=== PATIENT | male | born 1945 | race Two or more races ===

== ENCOUNTER → 2016-10-22 | Outpatient (CLI) | payer MEDICARE, BC, OTHER ==
[~2016-10-22] MED LIST: ASPI1TAB PO; ATOR40TA75 PO; CARV6.25 PO; CLOP75TA2 PO; LISI10TA4 PO; PEG1POW PO; VITA500T3 PO
[2016-10-23 14:14] LABS: PSA TOTAL 14.1 ng/mL (0.0-4.0)
== END ==
LOC: M LAB 11:08
PROVIDERS: ATTEND Urology
DX: C61 Malignant neoplasm of prostate (principal)

== ENCOUNTER → 2016-11-07 | Outpatient (REF) | payer MEDICARE, BC, OTHER ==
[2016-11-07 19:56] LABS: MEAN CORPUSCULAR HEMOGLOBIN 30.3 pg (27.0-33.0); MEAN CORPUSCULAR HGB CONC 32.4 g/dl (32.0-36.5); MEAN CORPUSCULAR VOLUME 93.7 fl (80.0-96.0); RED CELL DISTRIBUTION WIDTH 13.5 % (11.5-14.5); WHITE BLOOD COUNT 7.8 K/mm3 (4.0-10.0)
[2016-11-07 20:04] LABS: ALBUMIN 3.9 GM/DL (3.2-5.2); ALBUMIN/GLOBULIN RATIO 1.15 (1.00-1.93); ALKALINE PHOSPHATASE 74 U/L (45-117); ALT/SGPT 17 U/L (12-78); ANION GAP 6 MEQ/L (8-16); AST/SGOT 12 U/L (15-37); BILIRUBIN,TOTAL 0.4 MG/DL (0.2-1.0); BLOOD UREA NITROGEN 17 MG/DL (7-18); CARBON DIOXIDE LEVEL 32 MEQ/L (21-32); CHLORIDE LEVEL 97 MEQ/L (98-107); CHOLESTEROL LEVEL 218 MG/DL (<200); CREATININE FOR GFR 0.76 MG/DL (0.70-1.30); FREE T4 1.06 NG/DL (0.76-1.46); GLOMERULAR FILTRATION RATE > 60.0 (>42); GLUCOSE, FASTING 92 MG/DL (83-110); POTASSIUM SERUM 3.7 MEQ/L (3.5-5.1); SODIUM LEVEL 135 MEQ/L (136-145); TOTAL PROTEIN 7.3 GM/DL (6.4-8.2); TRIGLYCERIDES LEVEL 121 MG/DL (<150)
[2016-11-07 20:12] LABS: INR 0.98
== END ==
LOC: M SFHCADAM 14:54
PROVIDERS: ATTEND Family Medicine
DX: I48.2 Chronic atrial fibrillation (principal); I11.9 Hypertensive heart disease without heart failure; R09.89 Other specified symptoms and signs involving the circulatory and respiratory systems; Z79.899 Other long term (current) drug therapy; F17.210 Nicotine dependence, cigarettes, uncomplicated
CPT/HCPCS: 80053; 80061; 83036; 84439; 84443; 85027; 85610; 90670; 99406; G0009; G0404; G0463

== ENCOUNTER → 2016-11-11 | Outpatient (CLI) | payer MEDICARE, BC, OTHER ==
--- NOTE | 2016-11-11 15:33 | REP ---
PA and lateral chest: Comparison is 03/07/2010. The lung magdaleno are clear. Cardiac size is normal. The di and mediastinum are unremarkable and unchanged. There is demineralization and thoracic scoliosis convex left and mild degenerative disc disease throughout the thoracic spine, unchanged. Impression: Essentially negative PA and lateral chest for patient age. There is no interval change. Signed by Juan Hines MD 11/11/2016 03:25 P
--- NOTE | 2016-11-11 20:36 | ECHO ---
DATE OF PROCEDURE: 11/11/2016 AGE: 71 GENDER: Male. HEIGHT: 72 inches. WEIGHT: 206 pounds. BODY SURFACE AREA: 2.16 meters squared. LOCATION: Outpatient. REFERRING PHYSICIAN: Dr. Shravan Martin. INDICATION: Atrial fibrillation. MEASUREMENTS: 2-D measurements: RV - 3.9 cm LV - 3.9 cm Septum 1.3 cm Posterior wall 1.2 cm Aortic root 4.1 cm LA - 4.3 cm LVEF 60% Doppler measurements: AV - 1.3 ms LVOT - 0.7 ms LVOT diameter 2.2 cm MV - E: 77, A:65, EA ratio: 1.2. Early mitral deceleration time 215 ms E prime 7.8, A prime 10, E/E prime ratio 10 PV - 0.8 ms Pulmonary artery acceleration time 99 ms RVSP 46 mmHg IVC - 1.8 cm COMMENTS: Normal sinus rhythm without intraventricular conduction disturbance. Technically challenging study in light of the patient's body habitus but diagnostically useful information was still obtained. Mildly dilated left atrium but normal left ventricular size. Right heart chambers were upper limits of normal in size. LV wall thickness was borderline increased symmetrically. On real-time imaging from the parasternal and apical projections, wall motion was symmetrical and normal. Mild to moderate mitral annular and some mitral leaflet thickening with adequate leaflet excursion and no posterior systolic buckling. Three equal size aortic cusps with mildly thickened cusp edges but adequate cusp separation. Slightly dilated aortic root. No apparent intracardiac mass or pericardial effusion. Color flow Doppler study taken from the parasternal and apical projection showed very mild aortic, trace mitral and at least mild to moderate tricuspid insufficiency. Guided continuous wave Doppler of his aortic valve showed a normal peak systolic velocity against LV outflow tract obstruction. Pulsed and continuous wave Doppler of his LV inflow tract taken from the apical four-chamber projection showed normal diastolic filling velocities against mitral stenosis. There appeared to be a normal filling pattern, yet a prolonged early mitral deceleration time and tissue Doppler evidence of a degree of impaired LV diastolic function. Current estimated mean left atrial pressure was within normal limits. Pulsed and continuous wave Doppler of his pulmonary trunk showed a normal peak systolic velocity against RV outflow tract obstruction. His pulmonary artery acceleration time was abbreviated consistent with an elevated pulmonary vascular resistance. Guided continuous wave Doppler of his tricuspid valve allowed our estimation of his right ventricle systolic pressure (moderately increased). His inferior vena cava was normal in size with normal respiratory collapse against right heart failure. CONCLUSIONS: Technically difficult study in light of the patient's body habitus. Borderline to mild concentric left ventricle hypertrophy with preserved systolic function. Mildly dilated left atrium with Doppler evidence of an impairment of LV diastolic function but currently normal estimated mean left atrial pressure. Normal right heart chamber sizes and wall motion yet Doppler evidence of moderate pulmonary hypertension. Normal IVC size and collapse against an elevated central venous pressure. Moderate degenerative changes of the mitral valvular apparatus without functional valvular abnormality. Mild aortic valvular sclerosis without stenosis and only trace to very mild insufficiency.
== END ==
LOC: M CARPUL 14:28
PROVIDERS: ATTEND Family Medicine
DX: I48.2 Chronic atrial fibrillation (principal)

== ENCOUNTER → 2016-11-12 | Outpatient (CLI) | payer MEDICARE, BC, OTHER ==
--- NOTE | 2016-11-12 09:07 | REP ---
CAROTID DUPLEX ULTRASOUND: 11/12/2016. Filling of the systolic window for both internal carotids, worst in the mid and distal portions on the right Clinical history: Left carotid bruit. Findings: No prior study. Standard duplex techniques were utilized bilaterally. There is atherosclerotic plaque with soft and mixed plaque scattered throughout the right common carotid artery with circumferential plaque in the bulb into the right internal carotid greater than external carotid. Soft and hard plaques seen throughout. The left common carotid also shows some intimal thickening and distal calcific and soft plaque circumferential plaque and into the internal carotid and more into the external carotid, but significant on both sides. Peak velocities: RIGHT LEFT CCA systolic 0.83 M/S 0.94 M/SPeak ICA systolic 2.49 M/S 1.51 M/SPeak ICA diastolic 0.70 M/S 0.31 M/SECA systolic 0.98 M/S 0.94 M/SIC/CC ratio 2.99 1.60 The Doppler waveform analysis shows spectral broadening most significantly in the mid and distal right ICA on the left is most severe in the proximal ICA. The bilateral vertebral arteries are noted with cranial direction of flow. Impression: 1. Right internal carotid severe stenosis greater than 70% mid to distal right ICA with heavy circumferential calcific and soft plaque. 2. Left internal carotid with somewhat less but still significant stenosis greater than 50%, greatest in the proximal left internal carotid. 3. Cranial direction of flow in the vertebral arteries. Signed by Xander Gunn MD 11/12/2016 06:54 P
== END ==
LOC: M RAD 07:50
PROVIDERS: ATTEND Family Medicine
DX: R09.89 Other specified symptoms and signs involving the circulatory and respiratory systems (principal)

== ENCOUNTER → 2016-12-17 | Outpatient (CLI) | payer MEDICARE, BC, OTHER ==
[2016-12-17 12:01] LABS: ANION GAP 3 MEQ/L (8-16); BLOOD UREA NITROGEN 14 MG/DL (7-18); CALCIUM LEVEL 8.9 MG/DL (8.8-10.2); CARBON DIOXIDE LEVEL 36 MEQ/L (21-32); CHLORIDE LEVEL 101 MEQ/L (98-107); CREATININE FOR GFR 0.83 MG/DL (0.70-1.30); GLOMERULAR FILTRATION RATE > 60.0 (>42); GLUCOSE, FASTING 104 MG/DL (83-110); POTASSIUM SERUM 4.2 MEQ/L (3.5-5.1); SODIUM LEVEL 140 MEQ/L (136-145)
== END ==
LOC: M LAB 10:34
PROVIDERS: ATTEND Surgery Vascular Surgery
DX: I65.23 Occlusion and stenosis of bilateral carotid arteries (principal)

== ENCOUNTER → 2016-12-23 | Outpatient (CLI) | payer MEDICARE, BC, OTHER ==
[~2016-12-23] MED LIST changes: +ISOVUE-370 76% 100ML VIAL (Q9967) As Ordered ONE
--- NOTE | 2016-12-23 11:46 | REP ---
CT ANGIOGRAM OF THE BRAIN: 12/23/2016 CLINICAL HISTORY: Carotid stenosis. There are no priors pertinent studies. The patient received a bolus of 100 mL Isovue 370 after appropriate premedication as per ordering physician. It has history of IV contrast reaction. The axial soft-tissue images with MIP reformatting in coronal, sagittal and axial planes as well as standard coronal and sagittal reformats and 3D surface rendering rotated about the longitudinal axis of the brain, reviewed. Lateral ventricles are midline, not enlarged. There is mild atrophy but age appropriate. The third and fourth ventricles intact. No gross evidence of mass or mass effect. 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 Cerebellum and brainstem without acute finding. No vascular territory infarct is noted. The mastoids and sinuses are clear. Calvarium and skull base as well as visualized facial bones are unremarkable. Sinuses included are unremarkable as well. The distal left vertebral artery shows a long segment stenosis, while the right vertebral provides the dominant component of the basilar artery. No basilar stenosis or basilar tip aneurysm. The posterior cerebral arteries show symmetric supply to the posterior, proximally while distally on the left, there is slightly smaller caliber vessel without vessel cutoff or aneurysm. No basilar tip stenosis or aneurysm. There is a partial origin of the right [employer]IREMENT PLAN COUNSELOR with a posterior communicating artery from the posterior margin of the internal carotid to the [employer]IREMENT PLAN COUNSELOR. The right internal carotid shows slightly greater diameter than the left. Both show calcific plaque in the cavernous portions more on the right than left and no definite aneurysm. Slight ectasia of the M1 segment on the right compared to left without stenosis or aneurysm on either side. The A1 segment is without any significant stenosis. The A2 segment and M2 segments are grossly intact. The left internal carotid shows similar calcific plaque in the cavernous portion, and the supraclinoid left internal carotid was unremarkable. The A1 and M1 segments as well as M2 and A2 segments are grossly intact. IMPRESSION: 1. There is atherosclerotic plaque in both cavernous sinus portions of the internal carotids. The bilateral A1 and M1 segments are grossly intact as are the A2 and M2 segments without definite stenosis or aneurysm. The internal carotids in the cavernous sinus shows the atherosclerotic plaque and slightly greater caliber right than left, but no aneurysm. 2. Symmetric supply of vertebral arteries to form the basilar artery and slightly better flow and caliber posteriorly on the right compared to left posterior cerebral but no vessel cutoff or aneurysm. Nothing acute. Signed by Xander Gunn MD 12/23/2016 03:48 P
--- NOTE | 2016-12-23 11:50 | REP ---
CT ANGIOGRAM NECK: 12/23/2016 COMPARISON: Carotid ultrasound 11/12/2016. CLINICAL HISTORY: Carotid stenosis bilaterally on ultrasound. TECHNIQUE: The patient received bolus of 100 mL Isovue 370 and scanning through the neck with coronal and sagittal standard and MIP reformats with thick slab and curved reformats through both carotids. 3D surface rendering reconstructions rotated about the longitudinal axis of the neck. FINDINGS: The axial images show heavy atherosclerotic plaque at the bulbs and proximal ICAs bilaterally. There is tight stenosis bilaterally in the ICA in the 80-90% range of the right and left side. Heavy calcific plaque is a component at this. There is also heavy calcific plaque at the bulb and distal CCA with less stenosis. The area of greatest stenosis in the left ICA is about 1.5 cm above the bifurcation and on the right it is about 1 cm above the bifurcation. The bilateral vertebral arteries show symmetric appearance through the neck with greater supply of the basilar artery by the right vertebral smooth long segment narrowing. The remainder of the internal carotids intact. The right and left common carotid artery showed no significant stenosis with scattered plaque. Cervical spondylosis with degenerative disc disease but no compression fracture noted. The dens intact. Exaggeration of the cervical lordosis is noted, but no subluxation or dislocation. The neck soft tissues are symmetric. No adenopathy. The bilateral parotid and submandibular glands are symmetric and grossly intact. That portion of the base the brain seen was intact with a prominent xenia cisterna magna noted. IMPRESSION: 1. Evidence of bilateral critical stenosis in the 80-90% range for both internal carotids about a centimeter above the bifurcation on the right and 1.5 cm on the left for maximum stenosis. Soft and fairly extensive calcific plaque noted in both. If anything, the left internal carotid stenosis is understated by ultrasound. 2. Vertebral arteries show slightly greater supply component on the right than left with basilar artery. No other significant finding. Signed by Xander Gunn MD 12/23/2016 03:49 P
== END ==
LOC: M RAD 12-20 12:03
PROVIDERS: ATTEND Surgery Vascular Surgery
DX: I65.23 Occlusion and stenosis of bilateral carotid arteries (principal)
CPT/HCPCS: 70496; 70498; Q9967

== ENCOUNTER → 2017-01-02 | Outpatient (REF) | payer MEDICARE, BC, OTHER ==
[~2017-01-02] MED LIST changes: -ISOVUE-370 76% 100ML VIAL (Q9967) As Ordered ONE
== END ==
LOC: M SFHCLERA 09:16
PROVIDERS: ATTEND Dermatology
DX: D49.2 Neoplasm of unspecified behavior of bone, soft tissue, and skin (principal)
CPT/HCPCS: 11100; 11101; 88305; G0463

== ENCOUNTER → 2017-02-10 | Outpatient (REF) | payer MEDICARE, OTHER ==
[2017-02-12 14:16] LABS: PSA % FREE 14.1 % (.); PSA FREE 1.23 ng/mL; PSA TOTAL 8.7 ng/mL (0.0-4.0)
== END ==
LOC: M LABDRWAD 09:03
PROVIDERS: ATTEND Urology
DX: C61 Malignant neoplasm of prostate (principal)

== ENCOUNTER 2017-02-13 07:01 | Inpatient (IN) | payer MEDICARE, BC, OTHER ==
[~2017-02-13] VITALS: Ht 182.9 cm; Wt 95.0 kg
[2017-02-13] VITALS (10 sets, daily range): BP systolic 120–177; BP diastolic 57–91; O2SAT 90–91
[~2017-02-13 07:01] MED LIST changes: -PEG1POW PO
[2017-02-13] MEDS ORDERED: LIDOCAINE 1% SDV 5 ML VIAL SC ONE (07:15)
[2017-02-13] MEDS ORDERED: LIDOCAINE 1% MDV 20ML VIAL SQ PRN (08:00)
[2017-02-13] MEDS ORDERED: ROCURONIUM BROMIDE 50 MG/5 ML VIAL/SYRINGE As Ordered ONE (08:02)
[2017-02-13] MEDS ORDERED: MIDAZOLAM INJ 2 MG/2 ML VIAL (J2250) As Ordered ONE (08:02)
[2017-02-13] MEDS ORDERED: fentaNYL 100 MCG/2 ML INJECTION (J3010) As Ordered ONE (08:02)
[2017-02-13] MEDS ORDERED: LIDOCAINE 2% INJ 100 MG/5 ML SDV (FOR ANES.) As Ordered ONE (08:02)
[2017-02-13] MEDS ORDERED: PROPOFOL 200 MG/20 ML VIAL As Ordered ONE (08:02)
[2017-02-13] MEDS ORDERED: PHENYLEPHRINE INJ 10MG/ML VIAL (J2370) As Ordered ONE (08:07)
[2017-02-13] MEDS: LACTATED RINGERS IV SCH ×4 (08:15→10:15)
[2017-02-13] MEDS ORDERED: MIDAZOLAM INJ 2 MG/2 ML VIAL (J2250) IV PRN (08:30)
[2017-02-13] MEDS ORDERED: ALBUTEROL SULFATE 2.5 MG/0.5 ML INH NEB SOLN INH ONE (08:30)
[2017-02-13] MEDS ORDERED: CARVedilol 6.25 MG TAB PO ONE (08:30)
[2017-02-13] MEDS ORDERED: ATORVASTATIN 20 MG TAB PO SCH (09:00)
[2017-02-13] MEDS: CARVedilol 6.25 MG TAB PO SCH ×2 (09:00→21:09)
[2017-02-13] MEDS ORDERED: BUPIVACAINE HCL 0.5% 30 ML VIAL As Ordered ONE (09:04)
[2017-02-13] MEDS ORDERED: HEPARIN SOD (PORCINE) 5000 UNITS/ML VIAL As Ordered ONE (09:05)
[2017-02-13] MEDS ORDERED: LIDOCAINE 1% SDV INJ 30 ML VIAL As Ordered ONE (09:05)
[2017-02-13] MEDS ORDERED: THROMBIN SOLN 5,000 UNITS VIAL As Ordered ONE (09:07)
[2017-02-13] MEDS ORDERED: THROMBIN SOLN 20,000 UNITS KIT As Ordered ONE (09:08)
[2017-02-13] MEDS ORDERED: REMIFENTANIL 1MG 3ML VIAL As Ordered ONE ×2 (09:28→09:53)
--- NOTE | 2017-02-13 09:29 | HPEPDOC ---
General Date of Admission Feb 13, 2017 at 07:01 Primary Care Physician: Shravan Martin MD Attending Physician: Wang Bautista MD Chief Complaint Patient is a 71-year-old male with bilateral carotid artery stenosis. Source: Patient Exam Limitations: No limitations Severity: Severe History of Present Illness Patient is a 71-year-old male with bilateral carotid artery stenosis. The patient underwent ultrasound evaluation of his carotid arteries which showed stenosis which was confirmed with a CT angiogram of the neck and head showing greater than 80% stenosis in the bilateral internal carotid arteries. Patient was evaluated and felt to be a good candidate for carotid endarterectomy. Patient will undergo a right carotid endarterectomy followed by a left carotid endarterectomy in 2-3 weeks. Home Medications Scheduled Aspirin (Aspirin 81) 81 Mg Tab, 81 MG PO DAILY, (Reported) Atorvastatin Calcium (Atorvastatin Calcium) 40 Mg Tab, 40 MG PO DAILY, (Reported ) Carvedilol (Carvedilol) 6.25 Mg Tab, PO BID, (Reported) Clopidogrel Bisulfate (Clopidogrel) 75 Mg Tab, 75 MG PO DAILY, (Reported) Cyanocobalamin (Vitamin B-12) 500 Mcg Tab, 500 MCG PO DAILY, (Reported) Lisinopril (Lisinopril) 10 Mg Tab, 10 MG PO DAILY, (Reported) Allergies Coded Allergies: Contrast Media (Verified Allergy, Intermediate, HIVES, 01/29/17) CONTRAST DYE Past Medical History Medical History Hypertension Hypercholesterolemia Prostate cancer Anxiety Surgical History Right knee surgery Ulcer surgery Abdominal hernia repair 2 with mesh Excision of melanoma from the face Family History Significant Family History: Heart disease, Hypertension Father has a history of hypertension and coronary artery disease Mother has a history of hypertension and coronary artery disease Social History * Smoker: current smoker, greater than 1 pack/day Alcohol: Denies Drugs: denies Recent Travel/Sick Contacts: Denies: Recent travel, Recent sick contacts Patient smokes a proximally one pack per day for the last 40 years Review of Symptoms Constitutional: Denies: Chills, Fever, Malaise, Night Sweats, Weakness, Fatigue , Weight Loss, Lethargy, Other Eyes: Denies: Pain, Vision change, Conjunctivae inflammation, Eyelid inflammation, Redness, Other ENT: Denies: Head Aches, Ear Pain, Dysphagia, Sinus Congestion, Post Nasal Drip , Sore Throat, Epistaxis, Other Symptoms Skin: Denies: Rash, Lesions, Jaundice, Bruising, Itching, Dry, Breakdown, Nail Changes, Other Pulmonary: Denies: Dyspnea, Cough, Pleuritic Chest Pain, Other Symptoms Cardiovascular: Denies: Chest Pain, Palpitations, Orthopnea, Paroxysmal Noc. Dyspnea, Edema, Lt Headedness, Other Symptoms Gastrointestinal: Denies: Nausea, Vomiting, Abdominal Pain, Diarrhea, Constipation, Melena, Hematochezia, Other Symptoms Genitourinary: Denies: Dysuria, Frequency, Incontinence, Hematuria, Retention, Other Symptoms Hematologic: Denies: Bruising, Bleeding Excessively, Petecchia, Purpura, Enlarged Lymph Nodes, Other Hematologic Endocrine: Denies: Polydipsia, Polyphagia, Polyuria, Heat Intolerance, Cold Intolerance, Other Endocrine Sx Musculoskeletal: Denies: Neck Pain, Back Pain, Shoulder Pain, Arm Pain, Hand Pain, Leg Pain, Foot Pain, Joint Pain, Muscle Pain, Spasms, Other Symptoms Neurological: Denies: Weakness, Numbness, Incoordination, Change in speech, Confusion, Seizures, Other Symptoms Psych: Denies: Mood Normal, Anxiety, Depression, Memory Issues, Thoughts of Self Harm, Anger, Thoughts of Harming Other, Other Psych Physical Examination General Exam: Positive: Alert, No Acute Distress Eye Exam: Positive: PERRLA, Conjunctiva & lids normal ENT Exam: Positive: Atraumatic, Mucous membr. moist/pink, Pharynx Normal Neck Exam: Positive: Supple, +2 carotid pulse wo bruit Chest Exam: Positive: Clear to auscultation, Normal air movement Heart Exam: Positive: Rate Normal Telemetry: Positive: No significant arrhythmia Abdomen Exam: Positive: Normal bowel sounds, Soft Extremity Exam: Positive: Normal pulses, Tenderness, Swelling, Other, Negative: Clubbing, Cyanosis, Edema Skin Exam: Positive: Nl turgor and temperature Neuro Exam: Positive: Normal Gait, Normal Speech, Strength at 5/5 X4 ext, Normal Tone, Sensation Intact, Cranial Nerves 3-12 NL, Reflexes 2+ Psych Exam: Positive: Mental status NL Vital Signs Vital Signs Date Time Temp Pulse Resp B/P (MAP) Pulse Ox O2 Delivery O2 Flow Rate FiO2 02/13/17 08:44 92 156/98 02/13/17 08:34 97.9 20 95 Room Air Assessment/Plan Patient is a 71-year-old male with bilateral internal carotid artery stenosis on the order of 80-90%. Patient has been asymptomatic but due to the high degree of stenosis the patient will undergo carotid endarterectomy on the right side followed by carotid endarterectomy on the left in 2-3 weeks. Risks benefits and alternative treatment options were discussed with the patient. Benefits included but were not limited to prevention of cerebrovascular accident. Alternative treatment options included but were not limited to no intervention. Risks included but were not limited to infection, bleeding, renal failure requiring hemodialysis, possible need for further open surgical intervention, cranial nerve injury, hematoma formation, cerebrovascular accident , myocardial infarction, pulmonary embolus, DVT, loss of limb, loss of life and poor outcome. Patient's questions were answered. Patient voices understanding of these risks benefits and alternative treatment options and consents to proceed with a right carotid endarterectomy. Problems (1) Carotid artery disease without cerebral infarction Status: Chronic Plan / VTE VTE Prophylaxis Ordered?: Yes Plan Plan Patient will undergo a right carotid endarterectomy with patch angioplasty and shunt usage. Anticipated Discharge: Morgan Wang Bautista MD Feb 13, 2017 09:29
[2017-02-13] MEDS ORDERED: PHENYLephrine HCL 500 MCG/5 ML (100MCG/ML) SYRINGE (J2370) As Ordered ONE (09:45)
[2017-02-13] MEDS ORDERED: GLYCOPYRROLATE INJ 0.2 MG/ML 2 ML VIAL As Ordered ONE (10:15)
[2017-02-13] MEDS ORDERED: GLUCAGON FOR INJ 1 MG VIAL (J1610) As Ordered ONE (10:21)
[2017-02-13] MEDS ORDERED: BISACODYL 10 MG SUPP PR PRN (10:45)
[2017-02-13] MEDS ORDERED: MOM 30ML SUSPENSION UDC PO PRN (10:45)
[2017-02-13] MEDS ORDERED: ONDANSETRON 4MG/2ML VIAL (J2405) IV PRN ×2 (10:45→11:15)
[2017-02-13 11:14] LABS: BASO # 0.1 10^3/uL (0.0-0.2); BASO % 0.8 % (0.0-1.0); EOS # 0.2 10^3/uL (0.0-0.50); EOS % 3.4 % (0.0-3.0); IMMATURE GRANULOCYTE % 0.2 % (0-0); LYMPH # 1.7 10^3/uL (1.5-4.5); LYMPH % 26.2 % (24.0-44.0); MEAN CORPUSCULAR HGB CONC 33.1 g/dl (32.0-36.5); MEAN CORPUSCULAR VOLUME 90.6 fl (80.0-96.0); MONO # 0.7 10^3/uL (0.0-0.8); MONO % 11.1 % (0.0-5.0); NEUTROPHILS # 3.8 10^3/uL (1.8-7.7); NEUTROPHILS % 58.3 % (36.0-66.0); PLATELET COUNT, AUTOMATED 272 10^3/uL (150-450); RED CELL DISTRIBUTION WIDTH 13.3 % (11.5-14.5); WHITE BLOOD COUNT 6.5 10^3/uL (4.0-10.0)
[2017-02-13] MEDS ORDERED: fentaNYL 100 MCG/2 ML INJECTION (J3010) IV PRN (11:15)
[2017-02-13] MEDS ORDERED: LR 1,000 ML IV SCH (11:15)
[2017-02-13 11:42] LABS: ALBUMIN 3.1 GM/DL (3.2-5.2); ALBUMIN/GLOBULIN RATIO 0.91 (1.00-1.93); ALKALINE PHOSPHATASE 65 U/L (45-117); ALT/SGPT 18 U/L (12-78); ANION GAP 5 MEQ/L (8-16); AST/SGOT 10 U/L (7-37); BILIRUBIN,DIRECT 0.1 MG/DL (0.0-0.2); BILIRUBIN,TOTAL 0.4 MG/DL (0.2-1.0); BLOOD UREA NITROGEN 8 MG/DL (7-18); CALCIUM LEVEL 8.6 MG/DL (8.8-10.2); CARBON DIOXIDE LEVEL 33 MEQ/L (21-32); CHLORIDE LEVEL 100 MEQ/L (98-107); CREATININE FOR GFR 0.75 MG/DL (0.70-1.30); GLOMERULAR FILTRATION RATE > 60.0 (>42); GLUCOSE, FASTING 111 MG/DL (83-110); POTASSIUM SERUM 3.5 MEQ/L (3.5-5.1); SODIUM LEVEL 138 MEQ/L (136-145); TOTAL PROTEIN 6.5 GM/DL (6.4-8.2)
[2017-02-13] MEDS: ACETAMINOPHEN TAB 650MG DOSE (2X325MG) PO PRN ×2 (11:50→16:12)
[2017-02-13] MEDS: DOCUSATE SODIUM 100 MG CAP PO SCH ×2 (14:18→21:08)
[2017-02-13] MEDS: CLOPIDOGREL 75 MG TAB PO SCH (14:18)
[2017-02-13] MEDS: FAMOTIDINE 20 MG TAB PO SCH ×2 (14:18→21:09)
[2017-02-13] MEDS: SENOKOT S TAB PO SCH ×2 (14:18→21:08)
[2017-02-13] MEDS: CYANOCOBALAMIN 500 MCG TAB PO SCH (14:19)
[2017-02-13] MEDS: ASPIRIN 81 MG ENTERIC TAB PO SCH (14:19)
[2017-02-13] MEDS: LISINOPRIL 10 MG TAB PO SCH (14:20)
[2017-02-13] MEDS: MIRALAX *UNIT DOSE* 17GM PACKET PO SCH (18:15)
[2017-02-13] MEDS ORDERED: SLF 3 ML SYR IV PRN (19:00)
--- NOTE | 2017-02-13 21:07 | ECGEPIP ---
Stationary ECG Study [facility] Test Date: 2017-02-13 Pat Name: DENNIS OLSEN Department: Room: [place] [address] Gender: M [employer] Designer [employer] Maker: DEJA : 1945 Requested By: Wang Brown Order Number: [id number] Reading MD: Romaine Cabrera Measurements Intervals [place] Rate: 109 P: [place]: 0 QRS: 83 QRSD: 88 T: 66 QT: 333 QTc: 449 Interpretive Statements ATRIAL FLUTTER/TACHYCARDIA WITH RAPID VENTRICULAR RESPONSE Comparison tracing not on file Electronically Signed On 02-13-2017 21:06:59 EDT by Romaine Cabrera
[2017-02-13] MEDS: ATORVASTATIN 20 MG TAB PO SCH (21:08)
[2017-02-13] MEDS: NORCO, ANEXSIA 5/325MG TABLET (HYDROcodone/ACETAMINOPHEN) PO PRN (21:09)
[2017-02-13] MEDS: SLF 3 ML SYR IV SCH (22:00)
[2017-02-13] MEDS: ALBUTEROL SULFATE 2.5 MG/0.5 ML INH NEB SOLN NEB PRN (22:00)
[2017-02-14] VITALS (17 sets, daily range): BP systolic 103–164; BP diastolic 58–77; O2SAT 89–95
[2017-02-14] MEDS: SLF 3 ML SYR IV SCH ×3 (06:00→21:02)
[2017-02-14] MEDS: ASPIRIN 81 MG ENTERIC TAB PO SCH (08:59)
[2017-02-14] MEDS: LISINOPRIL 10 MG TAB PO SCH (08:59)
[2017-02-14] MEDS: CLOPIDOGREL 75 MG TAB PO SCH (08:59)
[2017-02-14] MEDS: FAMOTIDINE 20 MG TAB PO SCH ×2 (08:59→20:20)
[2017-02-14] MEDS: SENOKOT S TAB PO SCH ×2 (08:59→20:20)
[2017-02-14] MEDS: DOCUSATE SODIUM 100 MG CAP PO SCH ×2 (08:59→20:20)
[2017-02-14] MEDS: CYANOCOBALAMIN 500 MCG TAB PO SCH (08:59)
[2017-02-14] MEDS: CARVedilol 6.25 MG TAB PO SCH ×2 (09:00→20:21)
[2017-02-14] MEDS: MIRALAX *UNIT DOSE* 17GM PACKET PO SCH (09:00)
[2017-02-14] MEDS: NORCO, ANEXSIA 5/325MG TABLET (HYDROcodone/ACETAMINOPHEN) PO PRN ×2 (09:55→17:38)
[2017-02-14] MEDS: ALBUTEROL SULFATE 2.5 MG/0.5 ML INH NEB SOLN NEB PRN ×2 (12:09→19:42)
[2017-02-14] MEDS: ATORVASTATIN 20 MG TAB PO SCH (20:20)
[2017-02-15] VITALS (16 sets, daily range): BP systolic 119–196; BP diastolic 68–98; O2SAT 87–95
[2017-02-15] MEDS: SLF 3 ML SYR IV SCH ×3 (05:33→21:11)
[2017-02-15] MEDS: SENOKOT S TAB PO SCH ×2 (07:48→20:39)
[2017-02-15] MEDS: ASPIRIN 81 MG ENTERIC TAB PO SCH (07:48)
[2017-02-15] MEDS: FAMOTIDINE 20 MG TAB PO SCH ×2 (07:48→20:38)
[2017-02-15] MEDS: CYANOCOBALAMIN 500 MCG TAB PO SCH (07:48)
[2017-02-15] MEDS: CLOPIDOGREL 75 MG TAB PO SCH (07:48)
[2017-02-15] MEDS: LISINOPRIL 10 MG TAB PO SCH (07:49)
[2017-02-15] MEDS: CARVedilol 6.25 MG TAB PO SCH ×2 (07:49→20:39)
[2017-02-15] MEDS: DOCUSATE SODIUM 100 MG CAP PO SCH ×2 (07:50→20:39)
[2017-02-15] MEDS: MIRALAX *UNIT DOSE* 17GM PACKET PO SCH (07:50)
[2017-02-15] MEDS: ALBUTEROL SULFATE 2.5 MG/0.5 ML INH NEB SOLN NEB PRN ×2 (12:45→21:27)
[2017-02-15] MEDS: ATORVASTATIN 20 MG TAB PO SCH (20:38)
[2017-02-15] MEDS: ACETAMINOPHEN TAB 650MG DOSE (2X325MG) PO PRN (23:33)
[2017-02-16] VITALS (9 sets, daily range): BP systolic 138–210; BP diastolic 80–110; O2SAT 92–94
[2017-02-16] MEDS: SLF 3 ML SYR IV SCH (05:13)
[2017-02-16] MEDS: FAMOTIDINE 20 MG TAB PO SCH (07:34)
[2017-02-16] MEDS: CARVedilol 6.25 MG TAB PO SCH (07:34)
[2017-02-16] MEDS: ASPIRIN 81 MG ENTERIC TAB PO SCH (07:34)
[2017-02-16] MEDS: CLOPIDOGREL 75 MG TAB PO SCH (07:35)
[2017-02-16] MEDS: SENOKOT S TAB PO SCH (07:35)
[2017-02-16] MEDS: CYANOCOBALAMIN 500 MCG TAB PO SCH (07:35)
[2017-02-16] MEDS: LISINOPRIL 10 MG TAB PO SCH (07:35)
[2017-02-16] MEDS: MIRALAX *UNIT DOSE* 17GM PACKET PO SCH (07:35)
[2017-02-16] MEDS: DOCUSATE SODIUM 100 MG CAP PO SCH (07:35)
[2017-02-16] MEDS ORDERED: PEG1POW PO (09:51)
[2017-02-16] MEDS ORDERED: ALPRAZolam 0.25 MG TAB PO ONE (10:00)
--- NOTE | 2017-02-21 13:08 | RO ---
DATE OF PROCEDURE: 02/13/2017 PREPROCEDURE DIAGNOSES: Bilateral carotid artery stenosis, atrial fibrillation , atrial flutter, intraoperative hypotension. POSTPROCEDURE DIAGNOSES: Bilateral carotid artery stenosis, atrial fibrillation , atrial flutter, intraoperative hypotension. PROCEDURE: Attempted right carotid endarterectomy with incision and dissection of the platysma in the right neck. ATTENDING SURGEON: Matt Bautista MD SHOTWELD OPERATOR: None. INDICATION: The patient is a 71-year-old male with bilateral carotid artery stenosis greater than 80%, who was evaluated and felt to be a good candidate for a carotid endarterectomy on the right side. Risks, benefits and alternative treatment options were discussed with the patient. Benefits included but were not limited to prevention of stroke. Alternative treatment options included but were not limited to no intervention with continued conservative management. Risks included but were not limited to infection, bleeding, renal failure requiring hemodialysis, possible need for further open surgical intervention, cranial nerve injury, cerebrovascular accident, myocardial infarction, pulmonary embolus, DVT, loss of limb, loss of life and poor outcome. Patient's questions were answered and the patient agrees to proceed with a carotid endarterectomy. Patient voices understanding of these risks, benefits and alternative treatment options. ANESTHESIA: General endotracheal. ESTIMATED BLOOD LOSS: 20 mL. IV FLUIDS: 1000 mL. HEPARIN: None. COMPLICATIONS: None. DRAINS: None. SPECIMENS: None. IMPLANTS: None. DESCRIPTION OF PROCEDURE: The patient was taken to the operating room and placed supine on the operating room tablet and then prepped and draped in a standard surgical fashion. A time-out was conducted confirming the correction patient, procedure and laterality. The incision was then made overlying the carotid bifurcation in the right neck with a scalpel and this was carried down through the skin and subcutaneous tissue through the platysma. While the dissection through the platysma was occurring, it was noted that the patient went into a rapid atrial flutter with an actual bradycardiac response with heart rate in the 30s to 40s range. The patient also had intermittent transient hypotension during the bradycardic event. At this point, the procedure was terminated and the platysma was reapproximated using #2-0 Vicryl sutures and the skin closed using #3-0 Monocryl in a running subcuticular fashion. Steri-Strips and dressings were applied. The patient tolerated the procedure well. All instrument, sponge and needle counts were correct at the end of the case. There were no complications. Dr. Bautista was present for and directed the entire case. The patient was transferred to the recovery room, awake, alert, extubated and neurologically intact and subsequently to the intensive care unit (ICU) for further monitoring and evaluation of his atrial fibrillation and flutter. RYLAN
--- NOTE | 2017-02-21 13:13 | DSES ---
DATE OF ADMISSION: 02/13/2017 DATE OF DISCHARGE: 02/16/2017 ADMITTING DIAGNOSES: 1. Bilateral carotid artery stenosis. 2. Atrial fibrillation. 3. Atrial flutter. 4. Tobacco use. DISCHARGE DIAGNOSES: 1. Bilateral carotid artery stenosis. 2. Atrial fibrillation. 3. Atrial flutter. 4. Tobacco use. HOSPITAL COURSE: The patient was admitted to undergo a right carotid endarterectomy due to a high grade carotid artery stenosis and during the procedure the patient developed rapid atrial flutter with bradycardia and hypotension. The procedure was aborted and only an incision had been made in the skin and through the platysma which were then closed. The patient was given Atropine for the bradycardia, which converted the patient back to sinus rhythm in the operating room. The patient was then transferred to the recovery room and subsequently to the intensive care unit (ICU) for monitoring, where there were no further episodes of hypotension or atrial fibrillation or atrial flutter. The patient was very anxious regarding the failure of his inability to undergo the surgery and concerns for his atrial fibrillation and flutter and was monitored in the hospital and subsequently discharged on 02/16/2017. The patient will follow up with Dr. Martin for further cardiac evaluation and treatment. Once he has seen Dr. Martin and has undergone further cardiac evaluation, the determination will be made as to whether to proceed with attempts at carotid endarterectomy or possibly carotid artery stenting.
== END 2017-02-16 11:40 | disposition home or self-care (01) | DRG 982 ==
LOC: M OR 07:01 → M PCU 13:46
PROVIDERS: ADMIT Surgery Vascular Surgery; ATTEND Surgery Vascular Surgery
PROC: 0KJX0ZZ Inspection of Upper Muscle, Open Approach (ICD-10-PCS; principal; 2017-02-13 09:29)
DX: I65.23 Occlusion and stenosis of bilateral carotid arteries (principal); I48.92 Unspecified atrial flutter; I97.88 Other intraoperative complications of the circulatory system, not elsewhere classified; I48.91 Unspecified atrial fibrillation; I95.9 Hypotension, unspecified; I10 Essential (primary) hypertension; F17.210 Nicotine dependence, cigarettes, uncomplicated; E78.00 Pure hypercholesterolemia, unspecified; F41.9 Anxiety disorder, unspecified; Z79.82 Long term (current) use of aspirin; Z79.899 Other long term (current) drug therapy; Z91.041 Radiographic dye allergy status

== ENCOUNTER 2017-06-08 23:38 | Inpatient (IN) | payer MEDICARE, BC, OTHER ==
[2017-06-09 00:44] LABS: BASO # 0.1 10^3/uL (0.0-0.2); BASO % 0.9 % (0.0-1.0); EOS # 0.3 10^3/uL (0.0-0.50); EOS % 4.7 % (0.0-3.0); HEMATOCRIT 20.8 % (42.0-52.0); IMMATURE GRANULOCYTE % 0.5 % (0-3.0); LYMPH # 1.6 10^3/uL (1.5-4.5); LYMPH % 25.3 % (24.0-44.0); MEAN CORPUSCULAR HEMOGLOBIN 25.1 pg (27.0-33.0); MEAN CORPUSCULAR HGB CONC 29.8 g/dl (32.0-36.5); MEAN CORPUSCULAR VOLUME 84.2 fl (80.0-96.0); MONO % 15.6 % (0.0-5.0); NEUTROPHILS # 3.4 10^3/uL (1.8-7.7); PLATELET COUNT, AUTOMATED 290 10^3/uL (150-450); RED BLOOD COUNT 2.47 10^6/uL (4.30-6.10); RED CELL DISTRIBUTION WIDTH 15.3 % (11.5-14.5); WHITE BLOOD COUNT 6.4 10^3/uL (4.0-10.0)
[2017-06-09] MEDS: NITROGLYCERIN 2% OINT 1 GM *U/D* PKT TOP ×2 (00:44→20:30)
[2017-06-09] MEDS: METOPROLOL TART 25 MG TABLET PO (00:44)
[2017-06-09 00:48] LABS: INR 1.17; PARTIAL THROMBOPLASTIN TIME 31.2 SECONDS (26.8-37.9); PROTHROMBIN TIME 15.1 SECONDS (12.4-14.5)
[2017-06-09 00:50] LABS: HEMOGLOBIN 6.2 g/dl (14.0-18.0)
[2017-06-09 00:56] LABS: ANION GAP 5 MEQ/L (8-16); BLOOD UREA NITROGEN 18 MG/DL (7-18); CALCIUM LEVEL 8.5 MG/DL (8.8-10.2); CARBON DIOXIDE LEVEL 32 MEQ/L (21-32); CHLORIDE LEVEL 102 MEQ/L (98-107); CPK CREATINE PHOSPHOKINASE 40 U/L (39-308); CREATININE FOR GFR 0.84 MG/DL (0.70-1.30); GLOMERULAR FILTRATION RATE > 60.0 (>42); GLUCOSE, FASTING 165 MG/DL (70-100); POTASSIUM SERUM 3.6 MEQ/L (3.5-5.1); SODIUM LEVEL 139 MEQ/L (136-145); TROPONIN I 0.02 NG/ML (< 0.10)
[2017-06-09] MEDS: PANTOPRAZOLE 40MG INJ (PROTONIX) (C9113) IV (01:08)
[2017-06-09] MEDS: LORazepam 2 MG/ML VIAL (J2060) IV ×2 (01:09→06:24)
[2017-06-09] MEDS ORDERED: ALBUTEROL SULFATE 2.5 MG/0.5 ML INH NEB SOLN INH (03:00)
[2017-06-09] MEDS: PANTOPRAZOLE SODIUM 40 MG in D5W 50 ML IV ×5 (03:27→20:42)
[2017-06-09] MEDS: KCL 10MEQ/100ML SWI *ED/ICU* 10 MEQ in APPROPRIATE DILUENT 1 EA IV ×3 (03:28→07:21)
[2017-06-09 04:58] LABS: IMMEDIATE SPIN CROSSMATCH 1 4
[2017-06-09 10:50] LABS: BASO # 0.1 10^3/uL (0.0-0.2); BASO % 1.1 % (0.0-1.0); EOS # 0.3 10^3/uL (0.0-0.50); EOS % 4.2 % (0.0-3.0); HEMATOCRIT 29.2 % (42.0-52.0); IMMATURE GRANULOCYTE % 0.1 % (0-3.0); LYMPH # 1.5 10^3/uL (1.5-4.5); LYMPH % 21.4 % (24.0-44.0); MEAN CORPUSCULAR HEMOGLOBIN 26.6 pg (27.0-33.0); MEAN CORPUSCULAR HGB CONC 31.8 g/dl (32.0-36.5); MEAN CORPUSCULAR VOLUME 83.7 fl (80.0-96.0); NEUTROPHILS # 4.2 10^3/uL (1.8-7.7); NEUTROPHILS % 59.2 % (36.0-66.0); PLATELET COUNT, AUTOMATED 238 10^3/uL (150-450); RED BLOOD COUNT 3.49 10^6/uL (4.30-6.10); RED CELL DISTRIBUTION WIDTH 15.1 % (11.5-14.5); WHITE BLOOD COUNT 7.2 10^3/uL (4.0-10.0)
[2017-06-09 10:57] LABS: HEMOGLOBIN 9.3 g/dl (14.0-18.0)
[2017-06-09] MEDS: ATORVASTATIN 20 MG TAB PO ×2 (11:06→20:45)
[2017-06-09] MEDS: CARVedilol 6.25 MG TAB PO ×2 (11:06→15:32)
[2017-06-09 11:12] LABS: ANION GAP 4 MEQ/L (8-16); BLOOD UREA NITROGEN 12 MG/DL (7-18); CALCIUM LEVEL 8.3 MG/DL (8.8-10.2); CARBON DIOXIDE LEVEL 31 MEQ/L (21-32); CHLORIDE LEVEL 107 MEQ/L (98-107); CREATININE FOR GFR 0.67 MG/DL (0.70-1.30); GLOMERULAR FILTRATION RATE > 60.0 (>42); GLUCOSE, FASTING 91 MG/DL (70-100); MAGNESIUM LEVEL 2.1 MG/DL (1.8-2.4); POTASSIUM SERUM 4.2 MEQ/L (3.5-5.1); SODIUM LEVEL 142 MEQ/L (136-145)
[2017-06-09 12:08] LABS: BASO # 0.1 10^3/uL (0.0-0.2); BASO % 1.1 % (0.0-1.0); EOS # 0.3 10^3/uL (0.0-0.50); HEMATOCRIT 29.6 % (42.0-52.0); HEMOGLOBIN 9.4 g/dl (14.0-18.0); IMMATURE GRANULOCYTE % 0.3 % (0-3.0); LYMPH # 1.4 10^3/uL (1.5-4.5); LYMPH % 19.5 % (24.0-44.0); MEAN CORPUSCULAR HEMOGLOBIN 26.4 pg (27.0-33.0); MEAN CORPUSCULAR HGB CONC 31.8 g/dl (32.0-36.5); MEAN CORPUSCULAR VOLUME 83.1 fl (80.0-96.0); MONO % 13.8 % (0.0-5.0); NEUTROPHILS # 4.3 10^3/uL (1.8-7.7); NEUTROPHILS % 61.3 % (36.0-66.0); PLATELET COUNT, AUTOMATED 248 10^3/uL (150-450); RED BLOOD COUNT 3.56 10^6/uL (4.30-6.10); RED CELL DISTRIBUTION WIDTH 15.1 % (11.5-14.5); WHITE BLOOD COUNT 7.1 10^3/uL (4.0-10.0)
[2017-06-09 12:43] LABS: CK-MB VALUE MASS 5.8 NG/ML (0.0-3.6); CPK CREATINE PHOSPHOKINASE 83 U/L (39-308); MB/CK RELATIVE INDEX 6.98 (< OR =4)
[2017-06-09 12:46] LABS: TROPONIN I 1.72 NG/ML (< 0.10)
[2017-06-09] MEDS: CARVedilol 12.5 MG TAB PO ×2 (18:01→19:31)
[2017-06-09 18:07] LABS: BASO # 0.1 10^3/uL (0.0-0.2); BASO % 1.2 % (0.0-1.0); EOS # 0.4 10^3/uL (0.0-0.50); EOS % 4.8 % (0.0-3.0); HEMATOCRIT 29.7 % (42.0-52.0); HEMOGLOBIN 9.2 g/dl (14.0-18.0); IMMATURE GRANULOCYTE % 0.1 % (0-3.0); LYMPH # 1.7 10^3/uL (1.5-4.5); LYMPH % 21.5 % (24.0-44.0); MEAN CORPUSCULAR HEMOGLOBIN 25.8 pg (27.0-33.0); MEAN CORPUSCULAR VOLUME 83.4 fl (80.0-96.0); MONO # 0.9 10^3/uL (0.0-0.8); MONO % 11.8 % (0.0-5.0); NEUTROPHILS # 4.7 10^3/uL (1.8-7.7); NEUTROPHILS % 60.6 % (36.0-66.0); PLATELET COUNT, AUTOMATED 263 10^3/uL (150-450); RED BLOOD COUNT 3.56 10^6/uL (4.30-6.10); RED CELL DISTRIBUTION WIDTH 15.2 % (11.5-14.5); WHITE BLOOD COUNT 7.8 10^3/uL (4.0-10.0)
[2017-06-09 18:30] LABS: CPK CREATINE PHOSPHOKINASE 72 U/L (39-308)
[2017-06-09 18:31] LABS: CK-MB VALUE MASS 4.4 NG/ML (0.0-3.6); MB/CK RELATIVE INDEX 6.11 (< OR =4)
[2017-06-09] MEDS ORDERED: NITROGLYCERIN 0.4 MG SUBL TABLET SL (19:30)
[2017-06-09] MEDS ORDERED: CARVedilol 12.5 MG TAB PO (21:00)
[2017-06-09] MEDS: IPRATROPIUM 0.5MG/ALBUTEROL 2.5MG INH SOL UD 3ML (DUONEB)(J7620) NEB (21:08)
[2017-06-09] MEDS: LISINOPRIL 10 MG TAB PO (21:46)
[2017-06-09 23:38] LABS: BASO # 0.1 10^3/uL (0.0-0.2); BASO % 0.9 % (0.0-1.0); EOS # 0.4 10^3/uL (0.0-0.50); HEMATOCRIT 28.5 % (42.0-52.0); HEMOGLOBIN 8.9 g/dl (14.0-18.0); IMMATURE GRANULOCYTE % 0.3 % (0-3.0); LYMPH # 1.7 10^3/uL (1.5-4.5); LYMPH % 24.9 % (24.0-44.0); MEAN CORPUSCULAR HEMOGLOBIN 26.2 pg (27.0-33.0); MEAN CORPUSCULAR HGB CONC 31.2 g/dl (32.0-36.5); MEAN CORPUSCULAR VOLUME 83.8 fl (80.0-96.0); MONO % 14.8 % (0.0-5.0); NEUTROPHILS # 3.8 10^3/uL (1.8-7.7); NEUTROPHILS % 54.1 % (36.0-66.0); PLATELET COUNT, AUTOMATED 220 10^3/uL (150-450); RED CELL DISTRIBUTION WIDTH 15.3 % (11.5-14.5)
[2017-06-10] MEDS: CARVedilol 12.5 MG TAB PO ×4 (00:03→18:04)
[2017-06-10] MEDS: PANTOPRAZOLE SODIUM 40 MG in D5W 50 ML IV ×5 (01:56→23:45)
[2017-06-10] MEDS: IPRATROPIUM 0.5MG/ALBUTEROL 2.5MG INH SOL UD 3ML (DUONEB)(J7620) NEB ×5 (03:31→20:00)
[2017-06-10] MEDS: NITROGLYCERIN 2% OINT 1 GM *U/D* PKT TOP ×6 (04:00→20:00)
[2017-06-10 04:59] LABS: BASO # 0.1 10^3/uL (0.0-0.2); BASO % 0.8 % (0.0-1.0); EOS # 0.4 10^3/uL (0.0-0.50); HEMATOCRIT 27.9 % (42.0-52.0); HEMOGLOBIN 8.7 g/dl (14.0-18.0); IMMATURE GRANULOCYTE % 0.3 % (0-3.0); LYMPH # 1.5 10^3/uL (1.5-4.5); LYMPH % 20.6 % (24.0-44.0); MEAN CORPUSCULAR HGB CONC 31.2 g/dl (32.0-36.5); MEAN CORPUSCULAR VOLUME 83.5 fl (80.0-96.0); MONO # 1.1 10^3/uL (0.0-0.8); MONO % 14.7 % (0.0-5.0); NEUTROPHILS # 4.3 10^3/uL (1.8-7.7); NEUTROPHILS % 58.6 % (36.0-66.0); PLATELET COUNT, AUTOMATED 222 10^3/uL (150-450); RED BLOOD COUNT 3.34 10^6/uL (4.30-6.10); RED CELL DISTRIBUTION WIDTH 15.3 % (11.5-14.5); WHITE BLOOD COUNT 7.4 10^3/uL (4.0-10.0)
[2017-06-10 05:25] LABS: ALBUMIN 2.9 GM/DL (3.2-5.2); ALBUMIN/GLOBULIN RATIO 0.91 (1.00-1.93); ALKALINE PHOSPHATASE 69 U/L (45-117); ALT/SGPT 18 U/L (12-78); ANION GAP 8 MEQ/L (8-16); AST/SGOT 15 U/L (7-37); BILIRUBIN,TOTAL 0.5 MG/DL (0.2-1.0); BLOOD UREA NITROGEN 9 MG/DL (7-18); CALCIUM LEVEL 8.1 MG/DL (8.8-10.2); CARBON DIOXIDE LEVEL 29 MEQ/L (21-32); CHLORIDE LEVEL 105 MEQ/L (98-107); CREATININE FOR GFR 0.65 MG/DL (0.70-1.30); GLOMERULAR FILTRATION RATE > 60.0 (>42); GLUCOSE, FASTING 106 MG/DL (70-100); MAGNESIUM LEVEL 2.1 MG/DL (1.8-2.4); POTASSIUM SERUM 3.7 MEQ/L (3.5-5.1); SODIUM LEVEL 142 MEQ/L (136-145); TOTAL PROTEIN 6.1 GM/DL (6.4-8.2); TROPONIN I 0.76 NG/ML (< 0.10)
[2017-06-10] MEDS ORDERED: SLF 3 ML SYR IV (08:15)
[2017-06-10] MEDS: LISINOPRIL 10 MG TAB PO ×2 (08:38→21:00)
[2017-06-10 09:40] LABS: IMMEDIATE SPIN CROSSMATCH 1 2
[2017-06-10] MEDS ORDERED: BISACODYL 10 MG SUPP PR (09:45)
[2017-06-10] MEDS ORDERED: MIRALAX *UNIT DOSE* 17GM PACKET PO (09:45)
[2017-06-10] MEDS ORDERED: SENNA 8.6 MG TAB (SENOKOT) PO (09:45)
[2017-06-10] MEDS: DOCUSATE SODIUM 100 MG CAP PO ×2 (11:35→21:16)
[2017-06-10 14:17] LABS: BASO # 0.1 10^3/uL (0.0-0.2); BASO % 0.8 % (0.0-1.0); EOS # 0.3 10^3/uL (0.0-0.50); HEMATOCRIT 32.2 % (42.0-52.0); HEMOGLOBIN 10.3 g/dl (14.0-18.0); IMMATURE GRANULOCYTE % 0.1 % (0-3.0); LYMPH # 1.2 10^3/uL (1.5-4.5); LYMPH % 16.6 % (24.0-44.0); MEAN CORPUSCULAR HEMOGLOBIN 27.2 pg (27.0-33.0); MONO % 14.3 % (0.0-5.0); NEUTROPHILS # 4.6 10^3/uL (1.8-7.7); NEUTROPHILS % 64.2 % (36.0-66.0); PLATELET COUNT, AUTOMATED 203 10^3/uL (150-450); RED BLOOD COUNT 3.79 10^6/uL (4.30-6.10); RED CELL DISTRIBUTION WIDTH 15.1 % (11.5-14.5); WHITE BLOOD COUNT 7.2 10^3/uL (4.0-10.0)
[2017-06-10] MEDS: SLF 3 ML SYR IV ×2 (14:40→22:00)
[2017-06-10 21:04] LABS: BASO # 0.1 10^3/uL (0.0-0.2); BASO % 0.6 % (0.0-1.0); EOS # 0.3 10^3/uL (0.0-0.50); EOS % 3.8 % (0.0-3.0); HEMATOCRIT 31.3 % (42.0-52.0); HEMOGLOBIN 10.1 g/dl (14.0-18.0); IMMATURE GRANULOCYTE % 0.2 % (0-3.0); LYMPH # 1.4 10^3/uL (1.5-4.5); LYMPH % 15.2 % (24.0-44.0); MEAN CORPUSCULAR HEMOGLOBIN 27.2 pg (27.0-33.0); MEAN CORPUSCULAR HGB CONC 32.3 g/dl (32.0-36.5); MEAN CORPUSCULAR VOLUME 84.1 fl (80.0-96.0); MONO % 11.6 % (0.0-5.0); NEUTROPHILS # 6.1 10^3/uL (1.8-7.7); NEUTROPHILS % 68.6 % (36.0-66.0); PLATELET COUNT, AUTOMATED 228 10^3/uL (150-450); RED BLOOD COUNT 3.72 10^6/uL (4.30-6.10); RED CELL DISTRIBUTION WIDTH 15.2 % (11.5-14.5); WHITE BLOOD COUNT 8.9 10^3/uL (4.0-10.0)
[2017-06-10] MEDS: ATORVASTATIN 20 MG TAB PO (21:16)
[2017-06-10] MEDS ORDERED: CHLORASEPTIC SPRAY MT (23:30)
[2017-06-11] MEDS: CARVedilol 12.5 MG TAB PO ×2 (00:24→06:32)
[2017-06-11] MEDS: CEPACOL LOZENGE PO (00:26)
[2017-06-11] MEDS: NITROGLYCERIN 2% OINT 1 GM *U/D* PKT TOP ×6 (03:53→21:05)
[2017-06-11] MEDS: IPRATROPIUM 0.5MG/ALBUTEROL 2.5MG INH SOL UD 3ML (DUONEB)(J7620) NEB ×7 (03:55→23:43)
[2017-06-11] MEDS: PANTOPRAZOLE SODIUM 40 MG in D5W 50 ML IV (03:55)
[2017-06-11 05:04] LABS: BASO % 0.5 % (0.0-1.0); EOS # 0.3 10^3/uL (0.0-0.50); EOS % 4.1 % (0.0-3.0); HEMATOCRIT 31.6 % (42.0-52.0); HEMOGLOBIN 10.1 g/dl (14.0-18.0); IMMATURE GRANULOCYTE % 0.2 % (0-3.0); LYMPH # 1.5 10^3/uL (1.5-4.5); LYMPH % 17.8 % (24.0-44.0); MEAN CORPUSCULAR HEMOGLOBIN 26.6 pg (27.0-33.0); MEAN CORPUSCULAR VOLUME 83.4 fl (80.0-96.0); MONO # 1.2 10^3/uL (0.0-0.8); MONO % 14.5 % (0.0-5.0); NEUTROPHILS # 5.2 10^3/uL (1.8-7.7); NEUTROPHILS % 62.9 % (36.0-66.0); PLATELET COUNT, AUTOMATED 225 10^3/uL (150-450); RED BLOOD COUNT 3.79 10^6/uL (4.30-6.10); RED CELL DISTRIBUTION WIDTH 15.3 % (11.5-14.5); WHITE BLOOD COUNT 8.3 10^3/uL (4.0-10.0)
[2017-06-11 05:38] LABS: ANION GAP 7 MEQ/L (8-16); BLOOD UREA NITROGEN 13 MG/DL (7-18); CARBON DIOXIDE LEVEL 28 MEQ/L (21-32); CHLORIDE LEVEL 105 MEQ/L (98-107); CREATININE FOR GFR 0.72 MG/DL (0.70-1.30); GLOMERULAR FILTRATION RATE > 60.0 (>42); GLUCOSE, FASTING 100 MG/DL (70-100); POTASSIUM SERUM 3.6 MEQ/L (3.5-5.1); SODIUM LEVEL 140 MEQ/L (136-145)
[2017-06-11] MEDS: SLF 3 ML SYR IV ×3 (06:31→21:04)
[2017-06-11] MEDS: LISINOPRIL 10 MG TAB PO ×2 (08:28→21:04)
[2017-06-11] MEDS: DOCUSATE SODIUM 100 MG CAP PO ×2 (08:28→21:03)
[2017-06-11] MEDS: guaiFENesin ER 600 MG TAB PO ×2 (09:00→21:03)
[2017-06-11 12:22] LABS: BASO # 0.1 10^3/uL (0.0-0.2); BASO % 0.6 % (0.0-1.0); EOS # 0.2 10^3/uL (0.0-0.50); EOS % 2.6 % (0.0-3.0); HEMOGLOBIN 11.1 g/dl (14.0-18.0); IMMATURE GRANULOCYTE % 0.1 % (0-3.0); LYMPH # 1.1 10^3/uL (1.5-4.5); LYMPH % 12.6 % (24.0-44.0); MEAN CORPUSCULAR HEMOGLOBIN 26.5 pg (27.0-33.0); MEAN CORPUSCULAR HGB CONC 31.7 g/dl (32.0-36.5); MEAN CORPUSCULAR VOLUME 83.5 fl (80.0-96.0); MONO # 1.2 10^3/uL (0.0-0.8); MONO % 13.5 % (0.0-5.0); NEUTROPHILS # 6.2 10^3/uL (1.8-7.7); NEUTROPHILS % 70.6 % (36.0-66.0); PLATELET COUNT, AUTOMATED 243 10^3/uL (150-450); RED BLOOD COUNT 4.19 10^6/uL (4.30-6.10); RED CELL DISTRIBUTION WIDTH 15.3 % (11.5-14.5); WHITE BLOOD COUNT 8.8 10^3/uL (4.0-10.0)
[2017-06-11] MEDS: BISOPROLOL FUMARATE 5 MG TAB PO ×2 (13:05→21:04)
[2017-06-11] MEDS: MIRALAX *UNIT DOSE* 17GM PACKET PO (17:40)
[2017-06-11] MEDS: ATORVASTATIN 20 MG TAB PO (21:03)
[2017-06-12] MEDS: NITROGLYCERIN 2% OINT 1 GM *U/D* PKT TOP ×6 (01:00→19:53)
[2017-06-12] MEDS: IPRATROPIUM 0.5MG/ALBUTEROL 2.5MG INH SOL UD 3ML (DUONEB)(J7620) NEB ×5 (01:39→19:36)
[2017-06-12 04:59] LABS: HEMATOCRIT 31.6 % (42.0-52.0); HEMOGLOBIN 9.9 g/dl (14.0-18.0); MEAN CORPUSCULAR HEMOGLOBIN 26.4 pg (27.0-33.0); MEAN CORPUSCULAR HGB CONC 31.3 g/dl (32.0-36.5); MEAN CORPUSCULAR VOLUME 84.3 fl (80.0-96.0); PLATELET COUNT, AUTOMATED 221 10^3/uL (150-450); RED BLOOD COUNT 3.75 10^6/uL (4.30-6.10); RED CELL DISTRIBUTION WIDTH 15.4 % (11.5-14.5); WHITE BLOOD COUNT 7.6 10^3/uL (4.0-10.0)
[2017-06-12 05:18] LABS: ANION GAP 4 MEQ/L (8-16); BLOOD UREA NITROGEN 14 MG/DL (7-18); CALCIUM LEVEL 8.1 MG/DL (8.8-10.2); CARBON DIOXIDE LEVEL 32 MEQ/L (21-32); CHLORIDE LEVEL 105 MEQ/L (98-107); CREATININE FOR GFR 0.74 MG/DL (0.70-1.30); GLOMERULAR FILTRATION RATE > 60.0 (>42); GLUCOSE, FASTING 93 MG/DL (70-100); POTASSIUM SERUM 3.8 MEQ/L (3.5-5.1); SODIUM LEVEL 141 MEQ/L (136-145)
[2017-06-12] MEDS: SLF 3 ML SYR IV ×3 (06:00→20:48)
[2017-06-12] MEDS: MIRALAX *UNIT DOSE* 17GM PACKET PO (08:51)
[2017-06-12] MEDS: DOCUSATE SODIUM 100 MG CAP PO ×2 (08:51→19:53)
[2017-06-12] MEDS: BISOPROLOL FUMARATE 5 MG TAB PO (08:52)
[2017-06-12] MEDS: LISINOPRIL 10 MG TAB PO (08:52)
[2017-06-12] MEDS: guaiFENesin ER 600 MG TAB PO ×2 (08:52→19:53)
[2017-06-12 12:11] LABS: HEMATOCRIT 33.8 % (42.0-52.0); HEMOGLOBIN 10.7 g/dl (14.0-18.0); MEAN CORPUSCULAR HEMOGLOBIN 26.9 pg (27.0-33.0); MEAN CORPUSCULAR HGB CONC 31.7 g/dl (32.0-36.5); MEAN CORPUSCULAR VOLUME 84.9 fl (80.0-96.0); PLATELET COUNT, AUTOMATED 236 10^3/uL (150-450); RED BLOOD COUNT 3.98 10^6/uL (4.30-6.10); RED CELL DISTRIBUTION WIDTH 15.3 % (11.5-14.5); WHITE BLOOD COUNT 7.6 10^3/uL (4.0-10.0)
[2017-06-12] MEDS: LISINOPRIL 5 MG TAB PO (19:53)
[2017-06-12] MEDS: BISOPROLOL FUMARATE 10 MG TAB PO (19:54)
[2017-06-12] MEDS: CEPACOL LOZENGE PO (19:59)
[2017-06-12] MEDS: ACETAMINOPHEN 500 MG TAB PO (20:02)
[2017-06-12] MEDS: ATORVASTATIN 20 MG TAB PO (20:48)
[2017-06-13] MEDS: IPRATROPIUM 0.5MG/ALBUTEROL 2.5MG INH SOL UD 3ML (DUONEB)(J7620) NEB ×7 (00:08→23:14)
[2017-06-13] MEDS: NITROGLYCERIN 2% OINT 1 GM *U/D* PKT TOP ×7 (04:13→23:32)
[2017-06-13 04:36] LABS: HEMATOCRIT 31.2 % (42.0-52.0); HEMOGLOBIN 9.7 g/dl (14.0-18.0); MEAN CORPUSCULAR HEMOGLOBIN 26.3 pg (27.0-33.0); MEAN CORPUSCULAR HGB CONC 31.1 g/dl (32.0-36.5); MEAN CORPUSCULAR VOLUME 84.6 fl (80.0-96.0); PLATELET COUNT, AUTOMATED 229 10^3/uL (150-450); RED BLOOD COUNT 3.69 10^6/uL (4.30-6.10); RED CELL DISTRIBUTION WIDTH 15.5 % (11.5-14.5); WHITE BLOOD COUNT 7.2 10^3/uL (4.0-10.0)
[2017-06-13 04:44] LABS: ANION GAP 5 MEQ/L (8-16); BLOOD UREA NITROGEN 15 MG/DL (7-18); CALCIUM LEVEL 7.9 MG/DL (8.8-10.2); CARBON DIOXIDE LEVEL 31 MEQ/L (21-32); CHLORIDE LEVEL 105 MEQ/L (98-107); GLOMERULAR FILTRATION RATE > 60.0 (>42); GLUCOSE, FASTING 92 MG/DL (70-100); POTASSIUM SERUM 3.7 MEQ/L (3.5-5.1); SODIUM LEVEL 141 MEQ/L (136-145)
[2017-06-13] MEDS: SLF 3 ML SYR IV ×3 (06:00→20:13)
[2017-06-13] MEDS: MIRALAX *UNIT DOSE* 17GM PACKET PO (08:15)
[2017-06-13] MEDS: guaiFENesin ER 600 MG TAB PO ×2 (08:15→20:12)
[2017-06-13] MEDS: BISOPROLOL FUMARATE 10 MG TAB PO ×2 (08:15→20:12)
[2017-06-13] MEDS: LISINOPRIL 5 MG TAB PO ×2 (08:16→20:12)
[2017-06-13] MEDS: DOCUSATE SODIUM 100 MG CAP PO ×2 (08:16→20:11)
[2017-06-13] MEDS: ACETAMINOPHEN 500 MG TAB PO ×2 (12:15→23:32)
[2017-06-13] MEDS: CEFDINIR 300 MG CAP (OMNICEF) PO (17:15)
[2017-06-13] MEDS: diphenhydrAMINE CREAM 30GM TOP (17:16)
[2017-06-13] MEDS: ATORVASTATIN 20 MG TAB PO (20:11)
[2017-06-14] MEDS: IPRATROPIUM 0.5MG/ALBUTEROL 2.5MG INH SOL UD 3ML (DUONEB)(J7620) NEB ×7 (03:37→22:59)
[2017-06-14] MEDS: NITROGLYCERIN 2% OINT 1 GM *U/D* PKT TOP ×6 (04:00→23:23)
[2017-06-14] MEDS: SLF 3 ML SYR IV ×3 (04:36→22:00)
[2017-06-14 04:52] LABS: HEMATOCRIT 30.8 % (42.0-52.0); HEMOGLOBIN 9.7 g/dl (14.0-18.0); MEAN CORPUSCULAR HGB CONC 31.5 g/dl (32.0-36.5); MEAN CORPUSCULAR VOLUME 85.8 fl (80.0-96.0); PLATELET COUNT, AUTOMATED 210 10^3/uL (150-450); RED BLOOD COUNT 3.59 10^6/uL (4.30-6.10); RED CELL DISTRIBUTION WIDTH 15.6 % (11.5-14.5); WHITE BLOOD COUNT 6.1 10^3/uL (4.0-10.0)
[2017-06-14 05:13] LABS: ANION GAP 6 MEQ/L (8-16); BLOOD UREA NITROGEN 18 MG/DL (7-18); CALCIUM LEVEL 8.4 MG/DL (8.8-10.2); CARBON DIOXIDE LEVEL 30 MEQ/L (21-32); CHLORIDE LEVEL 105 MEQ/L (98-107); CREATININE FOR GFR 0.67 MG/DL (0.70-1.30); GLOMERULAR FILTRATION RATE > 60.0 (>42); GLUCOSE, FASTING 97 MG/DL (70-100); POTASSIUM SERUM 3.6 MEQ/L (3.5-5.1); SODIUM LEVEL 141 MEQ/L (136-145)
[2017-06-14] MEDS: DOCUSATE SODIUM 100 MG CAP PO ×2 (08:09→20:23)
[2017-06-14] MEDS: guaiFENesin ER 600 MG TAB PO ×2 (08:09→20:23)
[2017-06-14] MEDS: MIRALAX *UNIT DOSE* 17GM PACKET PO (08:09)
[2017-06-14] MEDS: LISINOPRIL 5 MG TAB PO ×2 (08:10→20:23)
[2017-06-14] MEDS: BISOPROLOL FUMARATE 10 MG TAB PO ×2 (08:10→20:23)
[2017-06-14] MEDS: CEFDINIR 300 MG CAP (OMNICEF) PO ×2 (08:11→20:22)
[2017-06-14] MEDS: ACETAMINOPHEN 500 MG TAB PO (20:22)
[2017-06-14] MEDS: ATORVASTATIN 20 MG TAB PO (20:22)
[2017-06-15] MEDS: NITROGLYCERIN 2% OINT 1 GM *U/D* PKT TOP ×6 (03:30→23:55)
[2017-06-15] MEDS: IPRATROPIUM 0.5MG/ALBUTEROL 2.5MG INH SOL UD 3ML (DUONEB)(J7620) NEB ×6 (03:30→23:49)
[2017-06-15] MEDS: SLF 3 ML SYR IV ×3 (03:31→22:00)
[2017-06-15 04:48] LABS: HEMATOCRIT 32.1 % (42.0-52.0); HEMOGLOBIN 9.9 g/dl (14.0-18.0); MEAN CORPUSCULAR HEMOGLOBIN 26.1 pg (27.0-33.0); MEAN CORPUSCULAR HGB CONC 30.8 g/dl (32.0-36.5); MEAN CORPUSCULAR VOLUME 84.7 fl (80.0-96.0); PLATELET COUNT, AUTOMATED 258 10^3/uL (150-450); RED BLOOD COUNT 3.79 10^6/uL (4.30-6.10); RED CELL DISTRIBUTION WIDTH 15.7 % (11.5-14.5); WHITE BLOOD COUNT 6.1 10^3/uL (4.0-10.0)
[2017-06-15 05:09] LABS: ANION GAP 7 MEQ/L (8-16); BLOOD UREA NITROGEN 14 MG/DL (7-18); CALCIUM LEVEL 8.5 MG/DL (8.8-10.2); CARBON DIOXIDE LEVEL 30 MEQ/L (21-32); CHLORIDE LEVEL 104 MEQ/L (98-107); CREATININE FOR GFR 0.74 MG/DL (0.70-1.30); GLOMERULAR FILTRATION RATE > 60.0 (>42); GLUCOSE, FASTING 83 MG/DL (70-100); POTASSIUM SERUM 3.7 MEQ/L (3.5-5.1); SODIUM LEVEL 141 MEQ/L (136-145)
[2017-06-15] MEDS: CEFDINIR 300 MG CAP (OMNICEF) PO ×2 (08:16→20:16)
[2017-06-15] MEDS: guaiFENesin ER 600 MG TAB PO ×2 (08:16→20:17)
[2017-06-15] MEDS: MIRALAX *UNIT DOSE* 17GM PACKET PO (08:16)
[2017-06-15] MEDS: DOCUSATE SODIUM 100 MG CAP PO ×2 (08:16→20:17)
[2017-06-15] MEDS: LISINOPRIL 5 MG TAB PO ×2 (08:17→20:16)
[2017-06-15] MEDS: BISOPROLOL FUMARATE 10 MG TAB PO ×2 (08:17→20:17)
[2017-06-15] MEDS: ASPIRIN 81 MG ENTERIC TAB PO (09:00)
[2017-06-15 12:03] LABS: KETONE, URINE AUTO RFX NEGATIVE (NEGATIVE); LEUKOCYTE ESTERASE UR AUTO RFX NEGATIVE (NEGATIVE); NITRITE, URINE AUTO RFX NEGATIVE (NEGATIVE); RBC, URINE AUTO RFX 0 /HPF (0-3); SPECIFIC GRAVITY UR AUTO RFX 1.008 (1.002-1.035); SQUAM EPITHELIAL CELL UR AURFX 0 /HPF (0-6); WBC, URINE AUTO RFX 0 /HPF (0-3)
[2017-06-15] MEDS: ACETAMINOPHEN 500 MG TAB PO (20:16)
[2017-06-15] MEDS: ATORVASTATIN 20 MG TAB PO (20:18)
[2017-06-16] MEDS: IPRATROPIUM 0.5MG/ALBUTEROL 2.5MG INH SOL UD 3ML (DUONEB)(J7620) NEB ×6 (04:00→23:13)
[2017-06-16 04:40] LABS: HEMATOCRIT 32.6 % (42.0-52.0); MEAN CORPUSCULAR HEMOGLOBIN 25.8 pg (27.0-33.0); MEAN CORPUSCULAR HGB CONC 30.7 g/dl (32.0-36.5); MEAN CORPUSCULAR VOLUME 84.2 fl (80.0-96.0); PLATELET COUNT, AUTOMATED 268 10^3/uL (150-450); RED BLOOD COUNT 3.87 10^6/uL (4.30-6.10); RED CELL DISTRIBUTION WIDTH 15.7 % (11.5-14.5)
[2017-06-16] MEDS: NITROGLYCERIN 2% OINT 1 GM *U/D* PKT TOP ×5 (04:53→20:26)
[2017-06-16 04:56] LABS: ANION GAP 7 MEQ/L (8-16); BLOOD UREA NITROGEN 13 MG/DL (7-18); CALCIUM LEVEL 8.2 MG/DL (8.8-10.2); CARBON DIOXIDE LEVEL 28 MEQ/L (21-32); CHLORIDE LEVEL 105 MEQ/L (98-107); CREATININE FOR GFR 0.67 MG/DL (0.70-1.30); GLOMERULAR FILTRATION RATE > 60.0 (>42); GLUCOSE, FASTING 99 MG/DL (70-100); POTASSIUM SERUM 3.7 MEQ/L (3.5-5.1); SODIUM LEVEL 140 MEQ/L (136-145)
[2017-06-16] MEDS: SLF 3 ML SYR IV ×3 (06:00→20:26)
[2017-06-16] MEDS: MIRALAX *UNIT DOSE* 17GM PACKET PO (08:47)
[2017-06-16] MEDS: BISOPROLOL FUMARATE 10 MG TAB PO (08:49)
[2017-06-16] MEDS: DOCUSATE SODIUM 100 MG CAP PO ×2 (08:50→20:25)
[2017-06-16] MEDS: LISINOPRIL 5 MG TAB PO ×2 (08:50→20:25)
[2017-06-16] MEDS: ASPIRIN 81 MG ENTERIC TAB PO (08:50)
[2017-06-16] MEDS: guaiFENesin ER 600 MG TAB PO (08:50)
[2017-06-16] MEDS: ACETAMINOPHEN 500 MG TAB PO (11:35)
[2017-06-16] MEDS: CEFDINIR 300 MG CAP (OMNICEF) PO ×2 (12:09→20:25)
[2017-06-16] MEDS ORDERED: guaiFENesin ER 600 MG TAB PO (16:30)
[2017-06-16] MEDS: ATORVASTATIN 20 MG TAB PO (20:26)
[2017-06-17 03:52] LABS: HEMATOCRIT 34.4 % (42.0-52.0); HEMOGLOBIN 10.7 g/dl (14.0-18.0); MEAN CORPUSCULAR HEMOGLOBIN 26.2 pg (27.0-33.0); MEAN CORPUSCULAR HGB CONC 31.1 g/dl (32.0-36.5); MEAN CORPUSCULAR VOLUME 84.3 fl (80.0-96.0); PLATELET COUNT, AUTOMATED 286 10^3/uL (150-450); RED BLOOD COUNT 4.08 10^6/uL (4.30-6.10); RED CELL DISTRIBUTION WIDTH 15.5 % (11.5-14.5); WHITE BLOOD COUNT 7.2 10^3/uL (4.0-10.0)
[2017-06-17] MEDS: IPRATROPIUM 0.5MG/ALBUTEROL 2.5MG INH SOL UD 3ML (DUONEB)(J7620) NEB ×6 (03:58→23:27)
[2017-06-17] MEDS: NITROGLYCERIN 2% OINT 1 GM *U/D* PKT TOP ×2 (04:00)
[2017-06-17 05:10] LABS: BEDSIDE GLUCOSE 111 MG/DL (83-110)
[2017-06-17] MEDS: amLODIPine 5 MG TAB PO ×2 (05:30→22:00)
[2017-06-17] MEDS: SLF 3 ML SYR IV ×3 (05:30→20:48)
[2017-06-17] MEDS: DOCUSATE SODIUM 100 MG CAP PO ×2 (08:16→20:48)
[2017-06-17] MEDS: MIRALAX *UNIT DOSE* 17GM PACKET PO (08:16)
[2017-06-17] MEDS: LISINOPRIL 5 MG TAB PO ×2 (09:19→20:46)
[2017-06-17] MEDS: ASPIRIN 81 MG ENTERIC TAB PO (09:19)
[2017-06-17] MEDS: CEFDINIR 300 MG CAP (OMNICEF) PO ×2 (09:19→20:47)
[2017-06-17] MEDS: BISOPROLOL FUMARATE 5 MG TAB PO (09:20)
[2017-06-17] MEDS: ISOSORBIDE MON. (IMDUR) 30 MG XR TAB PO (09:20)
[2017-06-17] MEDS: ACETAMINOPHEN 500 MG TAB PO ×2 (09:52→17:48)
[2017-06-17] MEDS: ATORVASTATIN 20 MG TAB PO (20:47)
[2017-06-17] MEDS: CARVedilol 3.125 MG TAB PO (20:47)
[2017-06-18] MEDS: IPRATROPIUM 0.5MG/ALBUTEROL 2.5MG INH SOL UD 3ML (DUONEB)(J7620) NEB ×5 (04:00→20:00)
[2017-06-18 04:44] LABS: HEMOGLOBIN 10.1 g/dl (14.0-18.0); MEAN CORPUSCULAR HEMOGLOBIN 26.5 pg (27.0-33.0); MEAN CORPUSCULAR HGB CONC 31.6 g/dl (32.0-36.5); PLATELET COUNT, AUTOMATED 273 10^3/uL (150-450); RED BLOOD COUNT 3.81 10^6/uL (4.30-6.10); RED CELL DISTRIBUTION WIDTH 15.8 % (11.5-14.5); WHITE BLOOD COUNT 6.4 10^3/uL (4.0-10.0)
[2017-06-18] MEDS: ACETAMINOPHEN 500 MG TAB PO ×3 (05:01→21:43)
[2017-06-18] MEDS: SLF 3 ML SYR IV ×3 (05:02→21:45)
[2017-06-18] MEDS: ASPIRIN 81 MG ENTERIC TAB PO (08:10)
[2017-06-18] MEDS: LISINOPRIL 5 MG TAB PO ×2 (08:10→21:45)
[2017-06-18] MEDS: amLODIPine 10 MG TAB PO (08:10)
[2017-06-18] MEDS: ISOSORBIDE MON. (IMDUR) 30 MG XR TAB PO (08:11)
[2017-06-18] MEDS: MIRALAX *UNIT DOSE* 17GM PACKET PO (08:11)
[2017-06-18] MEDS: DOCUSATE SODIUM 100 MG CAP PO ×2 (08:11→21:44)
[2017-06-18] MEDS: CARVedilol 3.125 MG TAB PO ×2 (08:11→21:44)
[2017-06-18] MEDS: CEFDINIR 300 MG CAP (OMNICEF) PO ×2 (10:46→21:44)
[2017-06-18] MEDS: ATORVASTATIN 20 MG TAB PO (21:42)
[2017-06-19] MEDS: IPRATROPIUM 0.5MG/ALBUTEROL 2.5MG INH SOL UD 3ML (DUONEB)(J7620) NEB ×7 (01:32→23:35)
[2017-06-19] MEDS: SLF 3 ML SYR IV ×3 (06:05→20:04)
[2017-06-19 06:52] LABS: HEMATOCRIT 33.8 % (42.0-52.0); HEMOGLOBIN 10.6 g/dl (14.0-18.0); MEAN CORPUSCULAR HEMOGLOBIN 26.3 pg (27.0-33.0); MEAN CORPUSCULAR HGB CONC 31.4 g/dl (32.0-36.5); MEAN CORPUSCULAR VOLUME 83.9 fl (80.0-96.0); PLATELET COUNT, AUTOMATED 308 10^3/uL (150-450); RED BLOOD COUNT 4.03 10^6/uL (4.30-6.10); RED CELL DISTRIBUTION WIDTH 15.9 % (11.5-14.5); WHITE BLOOD COUNT 8.3 10^3/uL (4.0-10.0)
[2017-06-19] MEDS: MIRALAX *UNIT DOSE* 17GM PACKET PO (08:16)
[2017-06-19] MEDS: CEFDINIR 300 MG CAP (OMNICEF) PO ×2 (08:17→20:00)
[2017-06-19] MEDS: ASPIRIN 81 MG ENTERIC TAB PO (08:17)
[2017-06-19] MEDS: CARVedilol 3.125 MG TAB PO ×2 (08:17→20:03)
[2017-06-19] MEDS: LISINOPRIL 5 MG TAB PO ×2 (08:17→20:02)
[2017-06-19] MEDS: DOCUSATE SODIUM 100 MG CAP PO ×2 (08:18→20:00)
[2017-06-19] MEDS: amLODIPine 10 MG TAB PO (08:18)
[2017-06-19] MEDS ORDERED: CLOPIDOGREL 75 MG TAB PO (09:00)
[2017-06-19] MEDS: ACETAMINOPHEN 500 MG TAB PO ×2 (10:31→20:03)
[2017-06-19] MEDS: CLOPIDOGREL 75 MG TAB PO (19:59)
[2017-06-19] MEDS: ATORVASTATIN 20 MG TAB PO (20:00)
[2017-06-20] MEDS: IPRATROPIUM 0.5MG/ALBUTEROL 2.5MG INH SOL UD 3ML (DUONEB)(J7620) NEB ×3 (03:04→11:23)
[2017-06-20] MEDS: SLF 3 ML SYR IV ×2 (05:18→14:00)
[2017-06-20 05:54] LABS: HEMATOCRIT 33.6 % (42.0-52.0); HEMOGLOBIN 10.5 g/dl (14.0-18.0); MEAN CORPUSCULAR HEMOGLOBIN 25.9 pg (27.0-33.0); MEAN CORPUSCULAR HGB CONC 31.3 g/dl (32.0-36.5); PLATELET COUNT, AUTOMATED 317 10^3/uL (150-450); RED BLOOD COUNT 4.05 10^6/uL (4.30-6.10); RED CELL DISTRIBUTION WIDTH 15.6 % (11.5-14.5); WHITE BLOOD COUNT 8.4 10^3/uL (4.0-10.0)
[2017-06-20] MEDS: MIRALAX *UNIT DOSE* 17GM PACKET PO (08:13)
[2017-06-20] MEDS: amLODIPine 10 MG TAB PO (08:14)
[2017-06-20] MEDS: CEFDINIR 300 MG CAP (OMNICEF) PO (08:14)
[2017-06-20] MEDS: CLOPIDOGREL 75 MG TAB PO (08:14)
[2017-06-20] MEDS: DOCUSATE SODIUM 100 MG CAP PO (08:14)
[2017-06-20] MEDS: LISINOPRIL 5 MG TAB PO (08:15)
[2017-06-20] MEDS: CARVedilol 3.125 MG TAB PO (08:15)
[2017-06-20] MEDS: ACETAMINOPHEN 500 MG TAB PO (08:23)
== END 2017-06-20 16:15 | disposition home or self-care (01) | DRG 377 ==
LOC: M ED 23:38 → M MSPAV 06-18 14:40 → M ED INP 06-09 03:21 → M ICU 06-09 04:26
PROC: 30253N1 (ICD-10-PCS; principal; 2017-06-09)
DX: K92.2 Gastrointestinal hemorrhage, unspecified (principal); I21.4 Non-ST elevation (NSTEMI) myocardial infarction; J13 Pneumonia due to Streptococcus pneumoniae; I48.4 Atypical atrial flutter; D50.0 Iron deficiency anemia secondary to blood loss (chronic); I48.0 Paroxysmal atrial fibrillation; I11.9 Hypertensive heart disease without heart failure; E78.5 Hyperlipidemia, unspecified; Z86.718 Personal history of other venous thrombosis and embolism; F17.210 Nicotine dependence, cigarettes, uncomplicated; K59.00 Constipation, unspecified; I27.81 Cor pulmonale (chronic); J04.0 Acute laryngitis; R09.02 Hypoxemia; M25.512 Pain in left shoulder; R35.0 Frequency of micturition; R33.9 Retention of urine, unspecified; Z85.820 Personal history of malignant melanoma of skin; Z91.041 Radiographic dye allergy status; Z79.02 Long term (current) use of antithrombotics/antiplatelets; Z85.46 Personal history of malignant neoplasm of prostate; Z79.82 Long term (current) use of aspirin; Z79.01 Long term (current) use of anticoagulants

== ENCOUNTER 2017-07-03 20:55 | Emergency (ER) | payer MEDICARE, BC, OTHER ==
[2017-07-03] MEDS ORDERED: PANTOPRAZOLE 40MG INJ (PROTONIX) (C9113) IV (21:00)
[2017-07-03 22:19] LABS: BASO % 0.6 % (0.0-1.0); EOS # 0.3 10^3/uL (0.0-0.50); EOS % 4.2 % (0.0-3.0); HEMATOCRIT 37.1 % (42.0-52.0); HEMOGLOBIN 11.6 g/dl (14.0-18.0); IMMATURE GRANULOCYTE % 0.3 % (0-3.0); LYMPH # 1.7 10^3/uL (1.5-4.5); MEAN CORPUSCULAR HEMOGLOBIN 25.7 pg (27.0-33.0); MEAN CORPUSCULAR HGB CONC 31.3 g/dl (32.0-36.5); MEAN CORPUSCULAR VOLUME 82.3 fl (80.0-96.0); MONO # 1.1 10^3/uL (0.0-0.8); MONO % 15.9 % (0.0-5.0); NEUTROPHILS # 3.8 10^3/uL (1.8-7.7); PLATELET COUNT, AUTOMATED 322 10^3/uL (150-450); RED BLOOD COUNT 4.51 10^6/uL (4.30-6.10); RED CELL DISTRIBUTION WIDTH 16.1 % (11.5-14.5); WHITE BLOOD COUNT 6.9 10^3/uL (4.0-10.0)
[2017-07-03 22:23] LABS: INR 0.97; PARTIAL THROMBOPLASTIN TIME 28.1 SECONDS (26.8-37.9)
[2017-07-03 22:30] LABS: ANION GAP 7 MEQ/L (8-16); BLOOD UREA NITROGEN 16 MG/DL (7-18); CALCIUM LEVEL 8.8 MG/DL (8.8-10.2); CARBON DIOXIDE LEVEL 28 MEQ/L (21-32); CHLORIDE LEVEL 101 MEQ/L (98-107); CREATININE FOR GFR 0.76 MG/DL (0.70-1.30); GLOMERULAR FILTRATION RATE > 60.0 (>42); GLUCOSE, FASTING 112 MG/DL (70-100); POTASSIUM SERUM 3.8 MEQ/L (3.5-5.1); SODIUM LEVEL 136 MEQ/L (136-145)
[2017-07-03] MEDS ORDERED: ACETAMINOPHEN TAB 650MG DOSE (2X325MG) PO (23:30)
== END 2017-07-03 23:43 | disposition home or self-care (01) ==
LOC: M ED 20:55
DX: K92.1 Melena (principal); I25.10 Atherosclerotic heart disease of native coronary artery without angina pectoris; I48.91 Unspecified atrial fibrillation; K92.2 Gastrointestinal hemorrhage, unspecified; Z86.718 Personal history of other venous thrombosis and embolism; I10 Essential (primary) hypertension; Z85.46 Personal history of malignant neoplasm of prostate; E78.5 Hyperlipidemia, unspecified; F17.200 Nicotine dependence, unspecified, uncomplicated; I73.9 Peripheral vascular disease, unspecified; Z53.21 Procedure and treatment not carried out due to patient leaving prior to being seen by health care provider; Z79.899 Other long term (current) drug therapy; Z91.041 Radiographic dye allergy status
CPT/HCPCS: 93005

== ENCOUNTER → 2017-09-09 | Outpatient (CLI) | payer MEDICARE, BC, OTHER ==
[~2017-09-09] MED LIST changes: -ASPI1TAB PO; -ATOR40TA75 PO; -CARV6.25 PO; -CLOP75TA2 PO; +E-Z-PAQUE 96% w/w SUSP 176GM BTL As Ordered; -LISI10TA4 PO; -VITA500T3 PO
== END ==
LOC: M RAD 14:04
DX: F17.218 Nicotine dependence, cigarettes, with other nicotine-induced disorders (principal); R93.8 Abnormal findings on diagnostic imaging of other specified body structures

== ENCOUNTER 2017-09-12 12:52 | Inpatient (IN) | payer MEDICARE, BC, OTHER ==
[2017-09-12] MEDS: LR 1,000 ML IV ×2 (13:15→14:08)
[2017-09-12] MEDS: LIDOCAINE 1% SDV 5 ML VIAL SQ (13:15)
[2017-09-12] MEDS ORDERED: PROPOFOL 200 MG/20 ML VIAL As Ordered (13:40)
[2017-09-12] MEDS ORDERED: ONDANSETRON 4MG/2ML VIAL (J2405) As Ordered (13:40)
[2017-09-12] MEDS ORDERED: MIDAZOLAM INJ 2 MG/2 ML VIAL (J2250) As Ordered (13:40)
[2017-09-12] MEDS ORDERED: dexameTHASONE 4 MG/ML 1ML VIAL (J1100) As Ordered (13:40)
[2017-09-12] MEDS ORDERED: fentaNYL 250 MCG/5 ML INJECTION (J3010) As Ordered (13:40)
[2017-09-12] MEDS ORDERED: LIDOCAINE 2% INJ 100 MG/5 ML SDV (FOR ANES.) As Ordered (13:40)
[2017-09-12] MEDS ORDERED: ROCURONIUM BROMIDE 50 MG/5 ML VIAL As Ordered (13:40)
[2017-09-12] MEDS ORDERED: HEPARIN SOD (PORCINE) 5000 UNITS/ML VIAL As Ordered ×2 (14:52)
[2017-09-12] MEDS: HEPARIN SOD (PORCINE) 5000 UNITS/ML VIAL As Ordered (14:55)
[2017-09-12] MEDS ORDERED: NEOSTIGMINE 10 MG/10 ML VIAL (J2710) As Ordered (14:56)
[2017-09-12] MEDS ORDERED: GLYCOPYRROLATE INJ 0.2 MG/ML 2 ML VIAL As Ordered (14:56)
[2017-09-12 14:59] LABS: HEMATOCRIT 34.3 % (42.0-52.0); HEMOGLOBIN 11.2 g/dl (13.5-17.5); MEAN CORPUSCULAR HEMOGLOBIN 27.3 pg (27.0-33.0); MEAN CORPUSCULAR HGB CONC 32.7 g/dl (32.0-36.5); MEAN CORPUSCULAR VOLUME 83.7 fl (80.0-96.0); PLATELET COUNT, AUTOMATED 238 10^3/uL (150-450); RED CELL DISTRIBUTION WIDTH 19.1 % (11.5-14.5); WHITE BLOOD COUNT 5.8 10^3/uL (4.0-10.0)
[2017-09-12] MEDS: THROMBIN SOLN 20,000 UNITS KIT As Ordered (15:14)
[2017-09-12] MEDS: BUPIVACAINE HCL 0.5% 30 ML VIAL As Ordered (15:59)
[2017-09-12] MEDS: LIDOCAINE 1% SDV INJ 30 ML VIAL As Ordered (15:59)
[2017-09-12] MEDS: fentaNYL 100 MCG/2 ML INJECTION (J3010) IV ×5 (16:15→16:57)
[2017-09-12] MEDS ORDERED: ONDANSETRON 4MG/2ML VIAL (J2405) IV ×2 (16:30)
[2017-09-12] MEDS ORDERED: BISACODYL 10 MG SUPP PR (16:30)
[2017-09-12] MEDS ORDERED: MOM 30ML SUSPENSION UDC PO (16:30)
[2017-09-12] MEDS ORDERED: NITROGLYCERIN 0.4 MG SUBL TABLET SL (16:30)
[2017-09-12] MEDS: PERCOCET 5MG/325MG TAB PO (17:09)
[2017-09-12] MEDS: MORPHINE 4 MG/ML 1ML VIAL/SYRINGE (J2270) IV (18:51)
[2017-09-12 19:58] LABS: ANION GAP 6 MEQ/L (8-16); BLOOD UREA NITROGEN 15 MG/DL (7-18); CALCIUM LEVEL 8.4 MG/DL (8.8-10.2); CARBON DIOXIDE LEVEL 29 MEQ/L (21-32); CHLORIDE LEVEL 107 MEQ/L (98-107); GLOMERULAR FILTRATION RATE > 60.0 (>42); GLUCOSE, FASTING 110 MG/DL (70-100); POTASSIUM SERUM 3.6 MEQ/L (3.5-5.1); SODIUM LEVEL 142 MEQ/L (136-145)
[2017-09-12] MEDS: ISOSORBIDE DIN. (ISORDIL) 5 MG TAB PO (21:00)
[2017-09-12] MEDS: SENOKOT S TAB PO (21:00)
[2017-09-12] MEDS: ATORVASTATIN 20 MG TAB PO (21:00)
[2017-09-12] MEDS: LISINOPRIL 40 MG TAB PO (21:00)
[2017-09-12] MEDS: DOCUSATE SODIUM 100 MG CAP PO (21:00)
[2017-09-12] MEDS: CARVedilol 6.25 MG TAB PO (21:00)
[2017-09-12] MEDS: NORCO, ANEXSIA 5/325MG TABLET (HYDROcodone/ACETAMINOPHEN) PO (21:49)
[2017-09-13] MEDS: NORCO, ANEXSIA 5/325MG TABLET (HYDROcodone/ACETAMINOPHEN) PO ×3 (03:14→20:51)
[2017-09-13] MEDS: DOCUSATE SODIUM 100 MG CAP PO ×2 (08:11→20:52)
[2017-09-13] MEDS: CLOPIDOGREL 75 MG TAB PO (08:11)
[2017-09-13] MEDS: SENOKOT S TAB PO ×2 (08:11→20:52)
[2017-09-13] MEDS: amLODIPine 10 MG TAB PO (08:12)
[2017-09-13] MEDS: ISOSORBIDE DIN. (ISORDIL) 5 MG TAB PO ×2 (08:12→20:55)
[2017-09-13] MEDS: CARVedilol 6.25 MG TAB PO ×2 (08:12→20:55)
[2017-09-13] MEDS: NS 1,000 ML IV (08:30)
[2017-09-13] MEDS: ATORVASTATIN 20 MG TAB PO (20:52)
[2017-09-13] MEDS: LISINOPRIL 40 MG TAB PO (20:55)
[2017-09-14] MEDS: MORPHINE 4 MG/ML 1ML VIAL/SYRINGE (J2270) IV (05:50)
[2017-09-14] MEDS: CLOPIDOGREL 75 MG TAB PO (08:09)
[2017-09-14] MEDS: DOCUSATE SODIUM 100 MG CAP PO ×2 (08:10→21:25)
[2017-09-14] MEDS: SENOKOT S TAB PO ×2 (08:11→21:25)
[2017-09-14] MEDS: ISOSORBIDE DIN. (ISORDIL) 5 MG TAB PO ×2 (08:12→21:25)
[2017-09-14] MEDS: amLODIPine 10 MG TAB PO (08:12)
[2017-09-14] MEDS: CARVedilol 6.25 MG TAB PO ×2 (08:13→21:26)
[2017-09-14] MEDS: NORCO, ANEXSIA 5/325MG TABLET (HYDROcodone/ACETAMINOPHEN) PO ×2 (10:54→21:27)
[2017-09-14] MEDS: LISINOPRIL 40 MG TAB PO (21:25)
[2017-09-14] MEDS: ATORVASTATIN 20 MG TAB PO (21:25)
[2017-09-15] MEDS: MORPHINE 4 MG/ML 1ML VIAL/SYRINGE (J2270) IV (03:50)
[2017-09-15] MEDS: amLODIPine 10 MG TAB PO (09:08)
[2017-09-15] MEDS: SENOKOT S TAB PO ×2 (09:08→21:18)
[2017-09-15] MEDS: ISOSORBIDE DIN. (ISORDIL) 5 MG TAB PO ×2 (09:08→21:18)
[2017-09-15] MEDS: CLOPIDOGREL 75 MG TAB PO (09:08)
[2017-09-15] MEDS: DOCUSATE SODIUM 100 MG CAP PO ×2 (09:08→21:18)
[2017-09-15] MEDS: CARVedilol 6.25 MG TAB PO ×2 (09:08→21:18)
[2017-09-15] MEDS: NORCO, ANEXSIA 5/325MG TABLET (HYDROcodone/ACETAMINOPHEN) PO ×3 (09:11→19:52)
[2017-09-15] MEDS: LISINOPRIL 40 MG TAB PO (21:17)
[2017-09-15] MEDS: ATORVASTATIN 20 MG TAB PO (21:19)
[2017-09-16] MEDS: NORCO, ANEXSIA 5/325MG TABLET (HYDROcodone/ACETAMINOPHEN) PO ×3 (02:20→16:10)
[2017-09-16] MEDS: DOCUSATE SODIUM 100 MG CAP PO ×2 (08:12→21:59)
[2017-09-16] MEDS: SENOKOT S TAB PO ×2 (08:13→21:59)
[2017-09-16] MEDS: ISOSORBIDE DIN. (ISORDIL) 5 MG TAB PO ×2 (08:13→21:59)
[2017-09-16] MEDS: CARVedilol 6.25 MG TAB PO ×2 (08:13→22:00)
[2017-09-16] MEDS: CLOPIDOGREL 75 MG TAB PO (08:13)
[2017-09-16] MEDS: amLODIPine 10 MG TAB PO (08:13)
[2017-09-16] MEDS: LISINOPRIL 40 MG TAB PO (21:59)
[2017-09-16] MEDS: ATORVASTATIN 20 MG TAB PO (21:59)
[2017-09-17] MEDS: ACETAMINOPHEN TAB 650MG DOSE (2X325MG) PO ×3 (06:13→17:57)
[2017-09-17] MEDS: DOCUSATE SODIUM 100 MG CAP PO (08:45)
[2017-09-17] MEDS: SENOKOT S TAB PO (08:45)
[2017-09-17] MEDS: CLOPIDOGREL 75 MG TAB PO (08:45)
[2017-09-17] MEDS: ISOSORBIDE DIN. (ISORDIL) 5 MG TAB PO (08:46)
[2017-09-17] MEDS: amLODIPine 10 MG TAB PO (08:46)
[2017-09-17] MEDS: CARVedilol 6.25 MG TAB PO (08:46)
[2017-09-20 00:08] LABS: PSA FREE 1.25 ng/mL; PSA TOTAL 9.6 ng/mL (0.0-4.0)
== END 2017-09-17 18:30 | disposition home or self-care (01) | DRG 39 ==
LOC: M OR 12:52 → M MSPAV 17:29
PROC: 03CH0ZZ Extirpation of Matter from Right Common Carotid Artery, Open Approach (ICD-10-PCS; principal; 2017-09-12 14:04)
PROC: 04UC0KZ Supplement Right Common Iliac Artery with Nonautologous Tissue Substitute, Open Approach (ICD-10-PCS; 2017-09-12 14:04)
DX: I65.23 Occlusion and stenosis of bilateral carotid arteries (principal); I10 Essential (primary) hypertension; E78.00 Pure hypercholesterolemia, unspecified; F41.9 Anxiety disorder, unspecified; F17.210 Nicotine dependence, cigarettes, uncomplicated; Z85.46 Personal history of malignant neoplasm of prostate; Z79.02 Long term (current) use of antithrombotics/antiplatelets; Z79.899 Other long term (current) drug therapy; Z91.013 Allergy to seafood; Z91.048 Other nonmedicinal substance allergy status; Z85.820 Personal history of malignant melanoma of skin

== ENCOUNTER → 2017-10-03 | Outpatient (CLI) | payer MEDICARE, BC, OTHER | LOC: M RAD 09:54 | DX: I65.23 Occlusion and stenosis of bilateral carotid arteries (principal); F17.218 Nicotine dependence, cigarettes, with other nicotine-induced disorders | CPT/HCPCS: 93880 ==

== ENCOUNTER → 2017-11-24 | Outpatient (REF) | payer MEDICARE, OTHER ==
[2017-11-24 12:43] LABS: BASO # 0.1 10^3/uL (0.0-0.2); BASO % 0.8 % (0.0-1.0); EOS # 0.2 10^3/uL (0.0-0.50); EOS % 2.9 % (0.0-3.0); HEMATOCRIT 38.7 % (42.0-52.0); HEMOGLOBIN 12.5 g/dl (13.5-17.5); IMMATURE GRANULOCYTE % 0.4 % (0-3.0); LYMPH # 1.8 10^3/uL (1.5-4.5); LYMPH % 23.1 % (24.0-44.0); MEAN CORPUSCULAR HEMOGLOBIN 29.3 pg (27.0-33.0); MEAN CORPUSCULAR HGB CONC 32.3 g/dl (32.0-36.5); MEAN CORPUSCULAR VOLUME 90.8 fl (80.0-96.0); MONO # 0.8 10^3/uL (0.0-0.8); MONO % 10.4 % (0.0-5.0); NEUTROPHILS # 4.8 10^3/uL (1.8-7.7); NEUTROPHILS % 62.4 % (36.0-66.0); PLATELET COUNT, AUTOMATED 314 10^3/uL (150-450); RED BLOOD COUNT 4.26 10^6/uL (4.30-6.10); RED CELL DISTRIBUTION WIDTH 13.5 % (11.5-14.5); WHITE BLOOD COUNT 7.7 10^3/uL (4.0-10.0)
[2017-11-24 14:00] LABS: ALBUMIN 3.7 GM/DL (3.2-5.2); ALBUMIN/GLOBULIN RATIO 0.95 (1.00-1.93); ALKALINE PHOSPHATASE 78 U/L (45-117); ALT/SGPT 26 U/L (12-78); ANION GAP 7 MEQ/L (8-16); AST/SGOT 16 U/L (7-37); BILIRUBIN,TOTAL 0.3 MG/DL (0.2-1.0); BLOOD UREA NITROGEN 12 MG/DL (7-18); CALCIUM LEVEL 9.1 MG/DL (8.8-10.2); CARBON DIOXIDE LEVEL 31 MEQ/L (21-32); CHLORIDE LEVEL 102 MEQ/L (98-107); CREATININE FOR GFR 0.94 MG/DL (0.70-1.30); GLOMERULAR FILTRATION RATE > 60.0 (>42); GLUCOSE, FASTING 105 MG/DL (70-100); POTASSIUM SERUM 4.4 MEQ/L (3.5-5.1); SODIUM LEVEL 140 MEQ/L (136-145); TOTAL PROTEIN 7.6 GM/DL (6.4-8.2)
== END ==
LOC: M SFHCADAM 10:20
DX: Z01.818 Encounter for other preprocedural examination (principal); I65.23 Occlusion and stenosis of bilateral carotid arteries
CPT/HCPCS: 80053

== ENCOUNTER 2017-11-28 05:51 | Inpatient (IN) | payer MEDICARE, BC, OTHER ==
[2017-11-28] MEDS ORDERED: LIDOCAINE 1% MDV 20ML VIAL SQ (06:00)
[2017-11-28] MEDS ORDERED: fentaNYL 100 MCG/2 ML INJECTION (J3010) As Ordered ×3 (06:37→10:15)
[2017-11-28] MEDS ORDERED: MIDAZOLAM INJ 2 MG/2 ML VIAL (J2250) As Ordered (06:38)
[2017-11-28] MEDS ORDERED: PROPOFOL 200 MG/20 ML VIAL As Ordered (06:38)
[2017-11-28] MEDS ORDERED: HEPARIN SOD (PORCINE) 5000 UNITS/ML VIAL As Ordered ×2 (06:38)
[2017-11-28] MEDS ORDERED: LABETALOL HCL 100 MG/20 ML VIAL As Ordered (06:38)
[2017-11-28] MEDS ORDERED: ROCURONIUM BROMIDE 50 MG/5 ML VIAL As Ordered (06:38)
[2017-11-28] MEDS ORDERED: LIDOCAINE 2% INJ 100 MG/5 ML SDV (FOR ANES.) As Ordered (06:38)
[2017-11-28] MEDS ORDERED: NITROGLYCERIN IN D5W 25MG/250ML (100MCG/ML) As Ordered (06:39)
[2017-11-28] MEDS: LR 1,000 ML IV (07:22)
[2017-11-28] MEDS: ceFAZolin 2 GM/D5W 50 ML IV BAG (J0690 PER 500MG) As Ordered (08:06)
[2017-11-28] MEDS: HEPARIN SOD (PORCINE) 5000 UNITS/ML VIAL As Ordered (08:11)
[2017-11-28] MEDS: THROMBIN SOLN 20,000 UNITS KIT As Ordered (08:11)
[2017-11-28] MEDS ORDERED: SUGAMMADEX SODIUM 500 MG/5 ML VIAL (BRIDION) As Ordered (08:35)
[2017-11-28] MEDS ORDERED: ePHEDrine SULFATE 25 MG/5 ML(5MG/ML) SYRINGE As Ordered (08:40)
[2017-11-28] MEDS ORDERED: PHENYLephrine HCL 500 MCG/5 ML (100MCG/ML) SYRINGE (J2370) As Ordered (08:40)
[2017-11-28] MEDS ORDERED: ONDANSETRON 4MG/2ML VIAL (J2405) As Ordered ×2 (09:10)
[2017-11-28] MEDS: LIDOCAINE 1% SDV INJ 30 ML VIAL As Ordered (09:42)
[2017-11-28] MEDS: BUPIVACAINE HCL 0.5% 30 ML VIAL As Ordered (09:43)
[2017-11-28] MEDS ORDERED: ONDANSETRON 4MG/2ML VIAL (J2405) IV ×2 (10:15→10:45)
[2017-11-28] MEDS ORDERED: PERCOCET 5MG/325MG TAB As Ordered ×2 (10:15→12:16)
[2017-11-28] MEDS ORDERED: MOM 30ML SUSPENSION UDC PO (10:15)
[2017-11-28] MEDS ORDERED: BISACODYL 10 MG SUPP PR (10:15)
[2017-11-28] MEDS: fentaNYL 100 MCG/2 ML INJECTION (J3010) IV ×4 (10:20→10:35)
[2017-11-28] MEDS: PERCOCET 5MG/325MG TAB PO ×2 (10:40→12:30)
[2017-11-28] MEDS ORDERED: METOCLOPRAMIDE INJ 10MG/2ML VIAL (J2765) IV (10:45)
[2017-11-28] MEDS ORDERED: MEPERIDINE INJ 25 MG/ML VIAL (J2175) IV (10:45)
[2017-11-28] MEDS: CARVedilol 6.25 MG TAB PO ×2 (11:00→21:23)
[2017-11-28] MEDS: SENOKOT S TAB PO ×2 (11:00→21:00)
[2017-11-28] MEDS: DOCUSATE SODIUM 100 MG CAP PO ×2 (11:00→21:00)
[2017-11-28] MEDS: ISOSORBIDE DIN. (ISORDIL) 5 MG TAB PO ×2 (11:00→21:22)
[2017-11-28] MEDS: MORPHINE 4 MG/ML 1ML VIAL/SYRINGE (J2270) IV ×3 (11:36→17:47)
[2017-11-28 11:44] LABS: iSTAT CA++ 4.9 MG/DL (4.5-5.3)
[2017-11-28] MEDS: LISINOPRIL 40 MG TAB PO (14:31)
[2017-11-28] MEDS: CLOPIDOGREL 75 MG TAB PO (14:31)
[2017-11-28] MEDS: amLODIPine 10 MG TAB PO (14:31)
[2017-11-28] MEDS: ERYTHROMYCIN OPHTH OINT OS (14:40)
[2017-11-28] MEDS: NORCO, ANEXSIA 5/325MG TABLET (HYDROcodone/ACETAMINOPHEN) PO ×2 (16:32→21:25)
[2017-11-28] MEDS: ATORVASTATIN 20 MG TAB PO (21:21)
[2017-11-29] MEDS: NORCO, ANEXSIA 5/325MG TABLET (HYDROcodone/ACETAMINOPHEN) PO ×5 (01:33→20:06)
[2017-11-29] MEDS: ACETAMINOPHEN TAB 650MG DOSE (2X325MG) PO (04:24)
[2017-11-29] MEDS: LR 1,000 ML IV (04:25)
[2017-11-29 05:41] LABS: BASO % 0.6 % (0.0-1.0); EOS # 0.2 10^3/uL (0.0-0.50); EOS % 2.3 % (0.0-3.0); HEMATOCRIT 29.2 % (42.0-52.0); HEMOGLOBIN 9.5 g/dl (13.5-17.5); IMMATURE GRANULOCYTE % 0.4 % (0-3.0); LYMPH # 1.8 10^3/uL (1.5-4.5); LYMPH % 25.9 % (24.0-44.0); MEAN CORPUSCULAR HEMOGLOBIN 29.3 pg (27.0-33.0); MEAN CORPUSCULAR HGB CONC 32.5 g/dl (32.0-36.5); MEAN CORPUSCULAR VOLUME 90.1 fl (80.0-96.0); MONO # 1.1 10^3/uL (0.0-0.8); MONO % 15.9 % (0.0-5.0); NEUTROPHILS # 3.9 10^3/uL (1.8-7.7); NEUTROPHILS % 54.9 % (36.0-66.0); PLATELET COUNT, AUTOMATED 211 10^3/uL (150-450); RED BLOOD COUNT 3.24 10^6/uL (4.30-6.10); RED CELL DISTRIBUTION WIDTH 13.6 % (11.5-14.5); WHITE BLOOD COUNT 7.1 10^3/uL (4.0-10.0)
[2017-11-29 06:02] LABS: ANION GAP 6 MEQ/L (8-16); BLOOD UREA NITROGEN 11 MG/DL (7-18); CARBON DIOXIDE LEVEL 30 MEQ/L (21-32); CHLORIDE LEVEL 103 MEQ/L (98-107); CREATININE FOR GFR 0.86 MG/DL (0.70-1.30); GLOMERULAR FILTRATION RATE > 60.0 (>42); GLUCOSE, FASTING 96 MG/DL (70-100); POTASSIUM SERUM 3.8 MEQ/L (3.5-5.1); SODIUM LEVEL 139 MEQ/L (136-145)
[2017-11-29] MEDS: ISOSORBIDE DIN. (ISORDIL) 5 MG TAB PO ×2 (08:45→21:45)
[2017-11-29] MEDS: DOCUSATE SODIUM 100 MG CAP PO ×2 (08:46→21:44)
[2017-11-29] MEDS: amLODIPine 10 MG TAB PO (08:46)
[2017-11-29] MEDS: SENOKOT S TAB PO ×2 (08:46→21:43)
[2017-11-29] MEDS: CARVedilol 6.25 MG TAB PO ×2 (08:47→21:44)
[2017-11-29] MEDS: LISINOPRIL 40 MG TAB PO (08:47)
[2017-11-29] MEDS: CLOPIDOGREL 75 MG TAB PO (08:47)
[2017-11-29] MEDS: ATORVASTATIN 20 MG TAB PO (21:43)
[2017-11-30] MEDS: NORCO, ANEXSIA 5/325MG TABLET (HYDROcodone/ACETAMINOPHEN) PO ×3 (00:25→08:06)
[2017-11-30] MEDS: amLODIPine 10 MG TAB PO (08:04)
[2017-11-30] MEDS: ISOSORBIDE DIN. (ISORDIL) 5 MG TAB PO ×2 (08:04→21:02)
[2017-11-30] MEDS: SENOKOT S TAB PO ×2 (08:05→21:04)
[2017-11-30] MEDS: CARVedilol 6.25 MG TAB PO ×2 (08:05→21:04)
[2017-11-30] MEDS: LISINOPRIL 40 MG TAB PO (08:06)
[2017-11-30] MEDS: CLOPIDOGREL 75 MG TAB PO (08:06)
[2017-11-30] MEDS: DOCUSATE SODIUM 100 MG CAP PO ×2 (08:06→21:03)
[2017-11-30] MEDS: ACETAMINOPHEN TAB 650MG DOSE (2X325MG) PO ×3 (12:16→21:03)
[2017-11-30] MEDS: ATORVASTATIN 20 MG TAB PO (21:04)
[2017-12-01] MEDS: NORCO, ANEXSIA 5/325MG TABLET (HYDROcodone/ACETAMINOPHEN) PO ×2 (00:03→04:21)
[2017-12-01] MEDS: DOCUSATE SODIUM 100 MG CAP PO ×2 (08:20→21:09)
[2017-12-01] MEDS: ACETAMINOPHEN TAB 650MG DOSE (2X325MG) PO ×2 (08:20→18:09)
[2017-12-01] MEDS: ISOSORBIDE DIN. (ISORDIL) 5 MG TAB PO ×2 (08:21→21:09)
[2017-12-01] MEDS: LISINOPRIL 40 MG TAB PO (08:21)
[2017-12-01] MEDS: CARVedilol 6.25 MG TAB PO ×2 (08:21→21:09)
[2017-12-01] MEDS: amLODIPine 10 MG TAB PO (08:21)
[2017-12-01] MEDS: CLOPIDOGREL 75 MG TAB PO (08:21)
[2017-12-01] MEDS: SENOKOT S TAB PO ×2 (08:21→21:09)
[2017-12-01] MEDS: ATORVASTATIN 20 MG TAB PO (21:09)
[2017-12-01] MEDS: ALBUTEROL SULFATE 2.5 MG/0.5 ML INH NEB SOLN NEB (22:21)
[2017-12-02] MEDS: NORCO, ANEXSIA 5/325MG TABLET (HYDROcodone/ACETAMINOPHEN) PO ×3 (00:17→13:28)
[2017-12-02] MEDS: LISINOPRIL 40 MG TAB PO (09:54)
[2017-12-02] MEDS: SENOKOT S TAB PO (09:54)
[2017-12-02] MEDS: DOCUSATE SODIUM 100 MG CAP PO (09:54)
[2017-12-02] MEDS: amLODIPine 10 MG TAB PO (09:55)
[2017-12-02] MEDS: CARVedilol 6.25 MG TAB PO (09:55)
[2017-12-02] MEDS: CLOPIDOGREL 75 MG TAB PO (09:55)
[2017-12-02] MEDS: ISOSORBIDE DIN. (ISORDIL) 5 MG TAB PO (09:55)
== END 2017-12-02 16:00 | disposition home or self-care (01) | DRG 38 ==
LOC: M OR 05:51 → M PCU 12:40
PROC: 03CJ0Z6 (ICD-10-PCS; principal; 2017-11-28 07:30)
PROC: 03CN0Z6 (ICD-10-PCS; 2017-11-28 07:30)
PROC: 03CL0Z6 (ICD-10-PCS; 2017-11-28 07:30)
PROC: 03UJ0KZ Supplement Left Common Carotid Artery with Nonautologous Tissue Substitute, Open Approach (ICD-10-PCS; 2017-11-28 07:30)
DX: I65.22 Occlusion and stenosis of left carotid artery (principal); I48.92 Unspecified atrial flutter; I25.10 Atherosclerotic heart disease of native coronary artery without angina pectoris; I10 Essential (primary) hypertension; E78.00 Pure hypercholesterolemia, unspecified; I48.91 Unspecified atrial fibrillation; F17.210 Nicotine dependence, cigarettes, uncomplicated; Z91.041 Radiographic dye allergy status; Z88.8 Allergy status to other drugs, medicaments and biological substances; Z98.62 Peripheral vascular angioplasty status; Z79.899 Other long term (current) drug therapy; Z91.013 Allergy to seafood; F41.9 Anxiety disorder, unspecified; Z85.46 Personal history of malignant neoplasm of prostate; Z85.820 Personal history of malignant melanoma of skin

== ENCOUNTER → 2017-12-10 | Outpatient (CLI) | payer MEDICARE, BC, OTHER | LOC: M ADAMS 10:46 | DX: R05 Cough (principal) | CPT/HCPCS: 71046 ==

== ENCOUNTER → 2017-12-31 | Outpatient (REF) | payer MEDICARE, OTHER ==
[2017-12-31 13:46] LABS: BASO # 0.1 10^3/uL (0.0-0.2); BASO % 0.7 % (0.0-1.0); EOS # 0.3 10^3/uL (0.0-0.50); HEMATOCRIT 37.2 % (42.0-52.0); HEMOGLOBIN 11.7 g/dl (13.5-17.5); IMMATURE GRANULOCYTE % 0.4 % (0-3.0); LYMPH # 1.8 10^3/uL (1.5-4.5); LYMPH % 24.3 % (24.0-44.0); MEAN CORPUSCULAR HEMOGLOBIN 28.2 pg (27.0-33.0); MEAN CORPUSCULAR HGB CONC 31.5 g/dl (32.0-36.5); MEAN CORPUSCULAR VOLUME 89.6 fl (80.0-96.0); MONO # 0.9 10^3/uL (0.0-0.8); MONO % 12.9 % (0.0-5.0); NEUTROPHILS # 4.1 10^3/uL (1.8-7.7); NEUTROPHILS % 57.7 % (36.0-66.0); PLATELET COUNT, AUTOMATED 255 10^3/uL (150-450); RED BLOOD COUNT 4.15 10^6/uL (4.30-6.10); RED CELL DISTRIBUTION WIDTH 14.1 % (11.5-14.5); WHITE BLOOD COUNT 7.2 10^3/uL (4.0-10.0)
== END ==
LOC: M SFHCADAM 12:22
DX: D50.9 Iron deficiency anemia, unspecified (principal); Z23 Encounter for immunization
CPT/HCPCS: 85025

== ENCOUNTER → 2018-01-12 | Outpatient (CLI) | payer MEDICARE, BC, OTHER | LOC: M RAD 12:55 | DX: I65.23 Occlusion and stenosis of bilateral carotid arteries (principal) | CPT/HCPCS: 93880 ==

== ENCOUNTER → 2018-02-20 | Outpatient (CLI) | payer MEDICARE, BC, OTHER ==
[2018-02-24 08:08] LABS: PSA % FREE 18.2 % (.); PSA TOTAL 9.9 ng/mL (0.0-4.0)
== END ==
LOC: M ADAMS 14:58
DX: C61 Malignant neoplasm of prostate (principal)
CPT/HCPCS: 84154

== ENCOUNTER → 2018-03-27 | Outpatient (REF) | payer MEDICARE, OTHER ==
[2018-03-27 19:37] LABS: NT-PRO BNP 53 PG/ML (<125)
== END ==
LOC: M LABDRWAD 18:55
DX: R06.02 Shortness of breath (principal)
CPT/HCPCS: 36415

== ENCOUNTER → 2018-04-13 | Outpatient (REF) | payer MEDICARE, OTHER ==
[~2018-04-13] MED LIST changes: +ALFU10TA2 PO; +AMLO10TA5 PO; +ASPI1TAB PO; +ATOR1TAB21 PO; +ATOR40TA75 PO; +CARV3.12 PO; +CARV6.25 PO; +CEFD300CAP PO; +CLOP75TA2 PO; -E-Z-PAQUE 96% w/w SUSP 176GM BTL As Ordered; +ELIQ5TAB PO; +ISOS5TA PO; +LISI-542 PO; +LISI10TA4 PO; +LISI40TA PO; +NITR4TASL SL; +NORCOTAB PO; +PEG1POW PO; +POLYPOW78 PO; +VITA500T3 PO
== END ==
LOC: M LABDRWAD 18:59
PROVIDERS: ATTEND Internal Medicine Cardiovascular Disease
DX: I49.3 Ventricular premature depolarization (principal)

== ENCOUNTER → 2018-08-19 | Outpatient (CLI) | payer MEDICARE, BC, OTHER ==
[~2018-08-19] MED LIST changes: -ASPI1TAB PO; +ASPI81TA26 PO; +HYDR-3715 PO; -NORCOTAB PO
--- NOTE | 2018-08-19 13:16 | REP ---
REASON: Followup carotid arterial stenosis. COMPARISON: Multiple, the latest 01/12/2018 which showed less than 50% stenosis of the internal carotid artery bilaterally. Once again, there is echogenic material seen along the carotid arterial messina. RIGHT LEFT CCA Systolic 127.0 cm/s 138.0 cm/s CCA Diastolic 18.6 cm/s 22.0 cm/s ICA Systolic 93.9 cm/s 102.0 cm/s ICA Diastolic 25.6 cm/s 21.7 cm/s ICA/CCA Ratio 0.74 0.74 Analysis of the spectral tracings shows antegrade flow in both vertebral arteries. There is no evidence of significant spectral broadening. IMPRESSION: Once again, according to the NASCET consensus criteria there is less than 50% stenosis of the internal carotid artery bilaterally. Electronically Signed by Wagner Fox DO 08/19/2018 03:24 P
== END ==
LOC: M RAD 11:17
PROVIDERS: ATTEND Surgery Vascular Surgery
DX: I65.23 Occlusion and stenosis of bilateral carotid arteries (principal)

== ENCOUNTER → 2018-09-25 | Outpatient (REF) | payer MEDICARE, OTHER ==
[2018-09-25 13:26] LABS: BLOOD UREA NITROGEN 18 MG/DL (7-18); CREATININE FOR GFR 0.95 MG/DL (0.70-1.30); GLOMERULAR FILTRATION RATE > 60.0 (>42)
== END ==
LOC: M LABDRWAD 12:32
PROVIDERS: ATTEND Urology
DX: C61 Malignant neoplasm of prostate (principal)

== ENCOUNTER → 2018-10-10 | Outpatient (CLI) | payer MEDICARE, OTHER ==
[2018-10-13 14:31] LABS: PSA % FREE 23.6 % (.); PSA FREE 1.79 ng/mL; PSA TOTAL 7.6 ng/mL (0.0-4.0)
== END ==
LOC: M LABDRWAD 15:36
PROVIDERS: ATTEND Urology
DX: C61 Malignant neoplasm of prostate (principal); R97.20 Elevated prostate specific antigen [PSA]

== ENCOUNTER → 2018-10-10 | Outpatient (CLI) | payer MEDICARE, OTHER ==
--- NOTE | 2018-10-10 16:42 | REP ---
Clinical: Trauma. Technique: Frontal view of the chest with multiple (four) views of the left hemithorax. Findings: Frontal view of the chest demonstrates COPD/emphysematous changes without acute cardiopulmonary process. Multiple views of the left hemithorax demonstrates no obvious acute rib fracture or pathology. Impression: Normal left rib series Electronically Signed by Husam Valdez MD 10/10/2018 04:35 P
== END ==
LOC: M LABDRWAD 15:47 → M ADAMS 15:47
PROVIDERS: ATTEND Physician Assistant Medical
DX: S20.212A Contusion of left front wall of thorax, initial encounter (principal); W19.XXXA Unspecified fall, initial encounter; Y92.9 Unspecified place or not applicable; C61 Malignant neoplasm of prostate; R97.20 Elevated prostate specific antigen [PSA]

== ENCOUNTER → 2019-05-13 | Outpatient (CLI) | payer MEDICARE, BC, OTHER ==
[~2019-05-13] MED LIST changes: +ACET-907 PO; -ALFU10TA2 PO; +ALFU10TA3 PO; +CYAN100050 PO; +CYAN500T8 PO; +FLON1SPR; +MIRA3350 PO; +ROSU40TA4 PO; -VITA500T3 PO
--- NOTE | 2019-05-13 14:12 | REP ---
CAROTID ULTRASOUND: "Real-time ultrasound evaluation and duplex Doppler interrogation of the extracranial cardiovascular is performed. There is relatively mild scattered plaquing bilaterally diffusely. There is elevation of the peak systolic velocity in the left internal carotid artery suggesting stenosis between 50 and 79%. There is no elevation of the peak systolic velocity in the right internal carotid artery. There is normal direction of flow in both vertebral arteries. RIGHT LEFT Peak systolic velocity ICA 62.2 cm/s 161.0 cm/s End diastolic velocity ICA 21.2 cm/s 32.2 cm/s Peak systolic velocity CCA 77.8 cm/s 100.0 cm/s Peak systolic velocity ECA 70.0 cm/s 56.1 cm/s ICA/CCA ratio 0.8 1.6 IMPRESSION: Elevation of peak systolic velocity in the left internal carotid artery suggesting stenosis at that location 50-79%. No evidence of stenosis right internal carotid artery. Electronically Signed by Juan Corcoran MD 05/14/2019 12:32 P
== END ==
LOC: M RAD 12:40
PROVIDERS: ATTEND Physician Assistant
DX: I65.23 Occlusion and stenosis of bilateral carotid arteries (principal)

== ENCOUNTER 2019-05-18 10:04 | Inpatient (IN) | payer MEDICARE, BC, OTHER ==
[~2019-05-18] VITALS: Ht 182.9 cm; Wt 94.3 kg
[~2019-05-18 10:04] MED LIST changes: -ACET-907 PO; -CYAN100050 PO; -FLON1SPR; -MIRA3350 PO; -ROSU40TA4 PO
[2019-05-18 10:36] LABS: BASO # 0.1 10^3/uL (0.0-0.2); EOS # 0.2 10^3/uL (0.0-0.5); EOS % 3.3 % (0.0-3.0); HEMATOCRIT 41.9 % (42.0-52.0); HEMOGLOBIN 13.6 g/dl (13.5-17.5); LYMPH # 1.9 10^3/uL (1.5-5.0); LYMPH % 26.4 % (24.0-44.0); MEAN CORPUSCULAR HEMOGLOBIN 29.8 pg (27.0-33.0); MEAN CORPUSCULAR HGB CONC 32.5 g/dl (32.0-36.5); MEAN CORPUSCULAR VOLUME 91.9 fl (80.0-96.0); MONO # 0.9 10^3/uL (0.0-0.8); MONO % 12.6 % (0.0-5.0); NEUTROPHILS # 4.1 10^3/uL (1.5-8.5); NEUTROPHILS % 56.4 % (36.0-66.0); PLATELET COUNT, AUTOMATED 219 10^3/uL (150-450); RED BLOOD COUNT 4.56 10^6/uL (4.30-6.10); WHITE BLOOD COUNT 7.2 10^3/uL (4.0-10.0)
[2019-05-18] MEDS ORDERED: ROSU40TA4 PO (10:38)
--- NOTE | 2019-05-18 10:49 | REP ---
Portable chest x-ray: Single view. History: Chest pain. Comparison study: October 10, 2018. Findings: EKG monitoring electrodes overlie the chest. The lungs are symmetrically aerated and free of infiltrate. Pleural angles are sharp. Pulmonary vasculature is not increased. No infiltrate is seen. The heart is not felt to be enlarged. Impression: No acute disease. Electronically Signed by Yuniel Garcia MD 05/18/2019 10:41 A
[2019-05-18 11:07] LABS: BLOOD UREA NITROGEN 17 MG/DL (7-18); CALCIUM LEVEL 9.4 MG/DL (8.8-10.2); CARBON DIOXIDE LEVEL 29 MEQ/L (21-32); CHLORIDE LEVEL 105 MEQ/L (98-107); CK-MB VALUE MASS 1.2 NG/ML (<3.6); CPK CREATINE PHOSPHOKINASE 58 U/L (39-308); CREATININE FOR GFR 1.08 MG/DL (0.70-1.30); GLOMERULAR FILTRATION RATE > 60.0 (>42); GLUCOSE, FASTING 113 MG/DL (70-100); MB/CK RELATIVE INDEX 2.07 (< OR =4); POTASSIUM SERUM 3.9 MEQ/L (3.5-5.1); SODIUM LEVEL 140 MEQ/L (136-145); TROPONIN I < 0.02 NG/ML (< 0.10)
[2019-05-18] MEDS ORDERED: PANTOPRAZOLE 40MG INJ (PROTONIX) (C9113) IV ONE (13:45)
[2019-05-18] MEDS ORDERED: NS 500 ML IV ONE (13:45)
[2019-05-18 15:27] LABS: CK-MB VALUE MASS 1.2 NG/ML (<3.6); CPK CREATINE PHOSPHOKINASE 51 U/L (39-308); MB/CK RELATIVE INDEX 2.35 (< OR =4); TROPONIN I < 0.02 NG/ML (< 0.10)
[2019-05-18] MEDS ORDERED: ACET-907 PO (15:56)
[2019-05-18] MEDS ORDERED: CYAN100050 PO (15:56)
[2019-05-18] MEDS ORDERED: FLON1SPR (15:56)
[2019-05-18] MEDS ORDERED: AMLO10TA5 PO (15:56)
[2019-05-18] MEDS ORDERED: MIRA3350 PO (15:56)
[2019-05-18] MEDS ORDERED: MIRALAX *UNIT DOSE* 17GM PACKET PO PRN (18:15)
[2019-05-18] MEDS ORDERED: FLUTICASONE PROP 0.05% NASAL SPRAY 16 GM (FLONASE) PRN (18:15)
[2019-05-18 19:28] VITALS: BP 180/86
[2019-05-18] MEDS: lisinopriL 40 MG TAB PO SCH (20:24)
[2019-05-18] MEDS: ROSUVASTATIN 10 MG TAB (CRESTOR) PO SCH (20:24)
[2019-05-18] MEDS: CARVedilol 6.25 MG TAB PO SCH (20:25)
[2019-05-18] MEDS: PANTOPRAZOLE 40MG INJ (PROTONIX) (C9113) IV SCH (20:25)
[2019-05-18] MEDS: amLODIPine 10 MG TAB PO SCH (20:25)
[2019-05-18] MEDS: ACETAMINOPHEN TAB 650MG DOSE (2X325MG) PO PRN (20:39)
--- NOTE | 2019-05-18 21:39 | HPEPDOC ---
General Date of Admission May 18, 2019 at 18:05 Date of Service: May 18, 2019 Attending Physician: CATHERINE BRUNO MD Chief Complaint The patient is a 73-year-old male admitted with a reason for visit of Chest Pain; Gi Bleed. Source: Patient, Family Exam Limitations: No limitations Timing/Duration: 24 hours Severity: Mild Associated Symptoms: Chest Pain History of Present Illness 73 yo man with a history of CAD, HTN, prior tobacco history, PVD, carotid stenosis s/p bilateral carotid endarterectomies, Afib s/p cardioversion x 2 with persistent Afib, history of a DVT s/p R knee surgery, a history of gastric ulcers and a history of prior GIB c/b NSTEMI and requirement of 6 units of blood in 2018 in the setting ASA/plavix/anticoagulation, who came to the ED with family, reporting BRBPR while wiping after bowel movement as well as black tarry stool after which he developed acute chest pain and shortness of breath when he realized that he was likely having a GIB, after the "horror of 2018." He reports that this incident before taking any of his medications this morning and he was supposed to see Dr. Chau his endodontics dentist today but ended up coming to the ED instead. In the ED< he was hypertensive to 204/91, P73 and later tachycardic to 120s, afebrile, RR20 and saturating well on room air. He reported chest painthat he reported to have started when he saw the blood, and wasworse with deep breathing, at rest and not exertional and abated in the ED without any intervention. He later reported a history of anxiety. Rectal exam in the ED sh owed melena that was guaiac positive. His ED workup was notable for an EKG without acute ST changes, showing Afib with frequent PVCs, troponins were negative x 2, Hgb was 13.6 with a Hct 41.9, platelets were 219, WBC 7.2, Cr 1.08, while CXR showed no acute cardiopulmonary pathology and CT A/P showed no acute focal pathology per my wet read. Of note, he had a duplex carotid US on 05/13/2019 that showed 50-70% L internal carotid artery stenosis and otherwise no other clinically significant stenoses. Also of note, his last cardiac nuclear stress was in 07/2017 and was wnl, while his last TTE was in 10/2016 with a normal EF, mild LVH and mild diastolic dysfunction, and holter monitoring showed 12% PVCs with frequent bigeminy. While in the ED, Dr. Chau was called by Dr. Cabrera and suggested holding his plavix and recommended follow up with him as an outpatient. Home Medications Scheduled Amlodipine Besylate (Amlodipine Besylate) 10 Mg Tablet, 10 MG PO DAILY, (Reported) Carvedilol (Carvedilol) 6.25 Mg Tab, 6.25 MG PO BID, (Reported) Clopidogrel Bisulfate (Clopidogrel) 75 Mg Tab, 75 MG PO DAILY, (Reported) Cyanocobalamin (Vitamin B-12) (Vitamin B-12) 1,000 Mcg Tablet, 1,000 MCG PO DAILY, (Reported) Lisinopril (Lisinopril) 40 Mg Tab, 40 MG PO QHS, (Reported) Rosuvastatin Calcium (Rosuvastatin Calcium) 40 Mg Tablet, 40 MG PO QHS, (Reported) Scheduled PRN Acetaminophen (Tylenol) 325 Mg Tablet, 650 MG PO TID PRN for PAIN, (Reported) Fluticasone Propionate (Flonase Allergy Relief) 9.9 Ml [place].susp, 2 SPRAY NA DAILY PRN for ALLERGIES, (Reported) Polyethylene Glycol 3350 (Miralax) 119 Gm Powder, 17 GM PO DAILY PRN for CONSTIPATION, (Reported) Allergies Coded Allergies: Contrast Media (Verified Allergy, Intermediate, HIVES, 05/18/19) able to tolerate pre-medicated. chlorthalidone (Verified Adverse Reaction, Mild, Headache, 05/18/19) Past Medical History Medical History CAD, HTN, prior tobacco history, PVD, carotid stenosis s/p bilateral carotid endarterectomies, Afib s/p cardioversion x 2 with persistent Afib, history of a DVT s/p R knee surgery, a history of gastric ulcers and a history of prior GIB c/b NSTEMI and requirement of 6 units of blood in 2018 in the setting ASA /plavix/anticoagulation Surgical History Abdominal hernia repairs R knee arthroplasty bilateral carotid endarterectomies Family History Significant Family History: No pertinent family hx Social History * Smoker: former Smoker (quit 2 years ago) Alcohol: Denies Drugs: denies Recent Travel/Sick Contacts: Denies: Recent travel, Recent sick contacts Psychosocial History: Anxiety A-FIB/CHADSVASC A-FIB History Current/History of A-Fib/PAF?: Yes Current PO Anticoag Therapy: No Age/Risk Factor Scoring CHADSVASC: CHADSVASC Response (Comments) Value Age Risk Factor Age 65-74 years old 1 Gender Risk Factor Male 0 Hx of CHF Yes 1 Hx of HTN Yes 1 Hx of Stroke/TIA/or VTE Yes 2 Hx of Diabetes No 0 Hx of Vascular Disease Yes 1 Total 6 Treatment Treatment ordered: NONE Reason Anticoagulant not given: Current bleeding Review of Systems Constitutional: Denies: Chills, Fever, Night Sweats Eyes: Denies: Pain, Vision change ENT: Denies: Head Aches, Ear Pain, Dysphagia Skin: Denies: Rash, Lesions, Breakdown Pulmonary: Reports: Pleuritic Chest Pain (? transient in nature); Denies: Dyspnea, Cough Cardiovascular: Reports: Chest Pain Gastrointestinal: Reports: Constipation (occasional ), Melena, Hematochezia; Denies: Nausea, Vomiting, Abdominal Pain, Diarrhea Genitourinary: Denies: Dysuria, Frequency, Incontinence, Retention Hematologic: Reports: Bruising; Denies: Bleeding Excessively Endocrine: Denies: Polydipsia, Polyphagia, Polyuria, Heat Intolerance, Cold Intolerance, Other Endocrine Sx Musculoskeletal: Denies: Neck Pain, Back Pain, Joint Pain, Muscle Pain, Spasms Neurological: Denies: Weakness, Numbness, Change in speech, Confusion Psych: Reports: Anxiety Physical Examination General Exam: Positive: Alert, No Acute Distress Eye Exam: Positive: PERRLA, Conjunctiva & lids normal, EOMI; Negative: Sclera icteric ENT Exam: Positive: Atraumatic, Mucous membr. moist/pink, Pharynx Normal Neck Exam: Positive: Supple; Negative: JVD, thyromegaly Chest Exam: Positive: Clear to auscultation, Normal air movement Heart Exam: Positive: Tachycardic, Irregular Rhythm, Normal S1, Normal S2; Negative: Murmurs, Rubs Telemetry: Positive: Atrial fibrillation, PVCs Abdomen Exam: Positive: Normal bowel sounds, Soft; Negative: Tenderness, Hepatospenomegaly Extremity Exam: Positive: Normal pulses; Negative: Clubbing, Cyanosis, Edema Skin Exam: Positive: Nl turgor and temperature; Negative: Breakdown, Lesion Neuro Exam: Positive: Normal Gait, Normal Speech, Cranial Nerves 3-12 NL, Reflexes 2+ Psych Exam: Positive: Mental status NL, Anxiety, Oriented x 3 Vital Signs Vital Signs Date Time Temp Pulse Resp B/P (MAP) Pulse Ox O2 Delivery O2 Flow Rate FiO2 05/18/19 20:25 86 180/86 05/18/19 18:51 20 94 Room Air 05/18/19 10:05 98.9 Laboratory Data Labs 24H Laboratory Tests 2 05/18/19 10:22: Immature Granulocyte % (Auto) 0.3, Neutrophils (%) (Auto) 56.4, Lymphocytes (%) (Auto) 26.4, Monocytes (%) (Auto) 12.6H, Eosinophils (%) (Auto) 3.3H, Basophils (%) (Auto) 1.0, Neutrophils # (Auto) 4.1, Lymphocytes # (Auto) 1.9, Monocytes # (Auto) 0.9H, Eosinophils # (Auto) 0.2, Basophils # (Auto) 0.1, Nucleated Red Blood Cells % (auto) 0.0, Anion Gap 6L, Glomerular Filtration Rate > 60.0, Calcium Level 9.4, Total Creatine Kinase 58, Creatine Kinase MB 1.2, Creatine Kinase MB Relative Index 2.07, Troponin I < 0.02 05/18/19 14:54: Total Creatine Kinase 51, Creatine Kinase MB 1.2, Creatine Kinase MB Relative Index 2.35, Troponin I < 0.02 CBC/BMP Laboratory Tests 05/18/19 10:22 Assessment/Plan 73 yo man with a history of CAD, HTN, prior tobacco history, carotid stenosis s/p bilateral carotid endarterectomies, Afib s/p cardioversion x 2 with persistent Afib, history of a DVT s/p R knee surgery, a history of gastric ulcers and a history of prior GIB c/b NSTEMI and requirement of 6 units of blood in 2018 in the setting ASA/plavix/anticoagulation, who came to the ED with family, reporting hematochezia and melena after which he developed acute transient chest pain and shortness of breath when he realized that he was likely having a GIB and found to havea slow GIB with a stably normal H/H while in Afib and hypertensive. GIB: Unclear if upper vs. lower GI given mixed history of melena vs. hematochezia with a known history of gastric ulcers as well as known diverticular on imaging. -Protonix 40 IV BID -hold plavix -GI consulted Dr. Daly in this gentleman who could benefit from risk reduction for clot formation by anticoagulating him, if a source was bleeding was known and intervened on if possible. Of note, during the last GIB did not get scoped due to NSTEMI complication --> spoke with Dr. Colmenares who will see the patient tomorrow with tentative plan to scope him on Friday with plan for prep on , so for now will give regular diet. Chest pain with a history of CAD: Atypical chest pain that resolved without intervention, with a history of CAD, as well as a history of anxiety. -trop negative x 2 -EKG non ischemic -continue telemetry -appears euvolemic on exam -CXR without acute pathology -circumstantial history highly suspicious for anxiety attack given the self resolution. Low suspicion for PE given no hypoxemia, no sustained chest pain or b/l LE swelling or pain HLD: -continue home rosuvastatin 40 HTN: -continue home lisinopril, coreg Afib: -continue home coreg 6.[address] Chau has sensitive sinus node and has been bradycardic when uptitration was attempted prior. -No anticoagulation given prior bleed and ongoing bleeding Chronic constipation: -PRN miralax DVT ppx: TEDs Diet: regular, with plan for prep on for scope on Friday. Dispo: PCU Plan / VTE VTE Prophylaxis Ordered?: Yes CATHERINE BRUNO MD May 18, 2019 21:39
[2019-05-18 23:59] VITALS: BP 120/68
[2019-05-19] MEDS: ACETAMINOPHEN TAB 650MG DOSE (2X325MG) PO PRN ×2 (02:54→10:09)
[2019-05-19 04:00] VITALS: BP 131/75
[2019-05-19 05:57] LABS: HEMATOCRIT 37.1 % (42.0-52.0); HEMOGLOBIN 12.1 g/dl (13.5-17.5); MEAN CORPUSCULAR HEMOGLOBIN 29.9 pg (27.0-33.0); MEAN CORPUSCULAR HGB CONC 32.6 g/dl (32.0-36.5); MEAN CORPUSCULAR VOLUME 91.6 fl (80.0-96.0); PLATELET COUNT, AUTOMATED 201 10^3/uL (150-450); RED BLOOD COUNT 4.05 10^6/uL (4.30-6.10); WHITE BLOOD COUNT 5.2 10^3/uL (4.0-10.0)
[2019-05-19 06:08] LABS: INR 1.16; PROTHROMBIN TIME 14.6 SECONDS (11.8-14.0)
[2019-05-19 06:29] LABS: ALBUMIN 3.1 GM/DL (3.2-5.2); ALT/SGPT 34 U/L (12-78); BILIRUBIN,TOTAL 0.4 MG/DL (0.2-1.0); BLOOD UREA NITROGEN 14 MG/DL (7-18); CALCIUM LEVEL 8.5 MG/DL (8.8-10.2); CARBON DIOXIDE LEVEL 27 MEQ/L (21-32); CHLORIDE LEVEL 109 MEQ/L (98-107); GLOMERULAR FILTRATION RATE > 60.0 (>42); GLUCOSE, FASTING 96 MG/DL (70-100); MAGNESIUM LEVEL 2.2 MG/DL (1.8-2.4); POTASSIUM SERUM 3.2 MEQ/L (3.5-5.1); SODIUM LEVEL 143 MEQ/L (136-145); TOTAL PROTEIN 6.7 GM/DL (6.4-8.2)
--- NOTE | 2019-05-19 07:25 | REP ---
CT of the abdomen and pelvis without IV and oral contrast for abdominal pain, history of hernia repair: Comparison is 12/07/2009. The visualized lung magdaleno are unremarkable except for atelectasis in the right lower lobe. The unenhanced hepatic parenchyma demonstrates two small hypodensities in the dome of the liver. One of these was present previously. The other is not present previously. There are too small to further characterize at this time. There are multiple small gallbladder calculi layering dependently in the gallbladder. These were not present previously. The pancreas and spleen are unremarkable. The adrenals are unremarkable. There is a right renal 5.4 cm upper pole cyst. This measured 4.6 cm previously. There is a left renal 3.4 cm lower pole cyst. This measured 1.7 cm previously. There is mild aneurysmal dilatation of the proximal abdominal aorta measuring up to 3.1 cm short axis. There is occasional calcified atheroma in the abdominal aorta. No periaortic adenopathy or mass. The bowel loops are unremarkable. There is diastases of the rectus abdominus. , however, no down hernia is identified. There is a tiny fat containing umbilical hernia, unchanged. The patient has history of mesh, however M unable to identify mesh along the anterior abdominal wall on the study today. Pelvis: There is no inguinal hernia. The bladder is unremarkable. There is no adenopathy or ascites. The prostate is significantly enlarged as previously and effaces the bladder base. There are a few diverticula in the distal descending colon and there is a diverticulum in the colon and the hepatic flexure. There is no CT evidence of diverticulitis. Impression: There is diastases of the rectus abdominus without definite hernia. No mesh is identified by CT. There is a tiny fat containing umbilical hernia. There is a single diverticulum in the hepatic flexure of the colon and there are a few diverticula in the distal descending colon. There is no diverticulitis. There is mild aneurysmal dilatation of the abdominal aorta up to 3.1 cm in diameter. There are gallbladder calculi. There are two small hypodensities in the dome of the liver, too small to further characterize. 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 There are renal cysts as described. Electronically Signed by Juan Hines MD 05/19/2019 07:16 A
[2019-05-19] MEDS ORDERED: POTASSIUM CHLORIDE 10 MEQ SR TABLET PO ONE (07:30)
[2019-05-19 08:03] VITALS: BP 160/83
[2019-05-19] MEDS: PANTOPRAZOLE 40MG INJ (PROTONIX) (C9113) IV SCH ×2 (08:43→20:22)
[2019-05-19] MEDS: CYANOCOBALAMIN 500 MCG TAB PO SCH (08:43)
[2019-05-19] MEDS: CARVedilol 6.25 MG TAB PO SCH ×2 (08:44→20:22)
[2019-05-19] MEDS: amLODIPine 10 MG TAB PO SCH (08:44)
--- NOTE | 2019-05-19 09:41 | IPNPDOC ---
Subjective Date Seen The patient was seen on 05/19/19. Subjective Chief Complaint/HPI GIB Events since last encounter Admitted for GIB, chest pain. Chest pain has resolved, w/u negative. Planned colonoscopy with Dr. Colmenares this Friday05/21/2019 Constitutional: Denies: Chills, Fever, Night Sweats Eyes: Denies: Pain, Vision change Pulmonary: Denies: Dyspnea, Cough Cardiovascular: Denies: Chest Pain, Palpitations, Orthopnea, Paroxysmal Noc. Dyspnea, Lt Headedness Gastrointestinal: Reports: Nausea, Melena; Denies: Vomiting, Abdominal Pain, Diarrhea, Constipation Psych: Reports: Mood Normal; Denies: Depression, Memory Issues Objective Physical Examination General Exam: Positive: Alert, No Acute Distress Eye Exam: Positive: PERRLA, Conjunctiva & lids normal, EOMI; Negative: Sclera icteric ENT Exam: Positive: Atraumatic, Mucous membr. moist/pink, Pharynx Normal Neck Exam: Positive: Supple; Negative: JVD, thyromegaly Chest Exam: Positive: Clear to auscultation, Normal air movement Heart Exam: Positive: Tachycardic, Irregular Rhythm, Normal S1, Normal S2; Negative: Murmurs, Rubs Telemetry: Positive: Atrial fibrillation, PVCs Abdomen Exam: Positive: Normal bowel sounds, Soft; Negative: Tenderness, Hepatospenomegaly Extremity Exam: Positive: Normal pulses; Negative: Clubbing, Cyanosis, Edema Skin Exam: Positive: Nl turgor and temperature; Negative: Breakdown, Lesion Neuro Exam: Positive: Normal Gait, Normal Speech, Cranial Nerves 3-12 NL, Reflexes 2+ Psych Exam: Positive: Mental status NL, Anxiety, Oriented x 3 Assessment /Plan Assessment Agree with below. Continue to hold anticoagulation until after scopes. Appears comfortable. -- CDT Problems (1) GI bleed Status: Acute Problem Specific Plan: Consult Specialist Problem Text: Dr. Colmenares consulted. Planned endoscopy 05/21/19. (2) Chest pain Status: Resolved Problem Text: most likely related to anxiety from blood and GIB. FOllows with Cardiology,. Has had Stress testing and echo within the last 2 years (3) History of DVT (deep vein thrombosis) Status: Chronic Problem Text: anti-coagulation on HOLD due to GIB (4) History of atrial fibrillation Status: Chronic Problem Text: anti-coagulation on HOLD due to GIB (5) Carotid stenosis Status: Chronic Response to Treatment: Stable (6) Hypertension Status: Chronic Response to Treatment: Stable Problem Text: Continue home dosing of carvedilol and amlodipine (7) Hyperlipidemia Problem Text: continue home dosing of rosuvastatin (8) Carotid artery disease without cerebral infarction Status: Chronic Plan/VTE VTE Prophylaxis Ordered?: No VTE Exclusion Pharmacological: Active Bleeding VS, I&O, 24H, Fishbone Vital Signs/I&O Vital Signs Date Time Temp Pulse Resp B/P (MAP) Pulse Ox O2 Delivery O2 Flow Rate FiO2 05/19/19 08:03 97.9 57 18 160/83 (108) 92 Room Air I&O- Last 24 Hours up to 6 AM 05/19/19 06:00 Intake Total 800 ml Output Total 300 ml Balance 500 ml Laboratory Data 24H LABS Laboratory Tests 2 05/18/19 10:22: Immature Granulocyte % (Auto) 0.3, Neutrophils (%) (Auto) 56.4, Lymphocytes (%) (Auto) 26.4, Monocytes (%) (Auto) 12.6H, Eosinophils (%) (Auto) 3.3H, Basophils (%) (Auto) 1.0, Neutrophils # (Auto) 4.1, Lymphocytes # (Auto) 1.9, Monocytes # (Auto) 0.9H, Eosinophils # (Auto) 0.2, Basophils # (Auto) 0.1, Nucleated Red Blood Cells % (auto) 0.0, Anion Gap 6L, Glomerular Filtration Rate > 60.0, Calcium Level 9.4, Total Creatine Kinase 58, Creatine Kinase MB 1.2, Creatine Kinase MB Relative Index 2.07, Troponin I < 0.02 05/18/19 14:54: Total Creatine Kinase 51, Creatine Kinase MB 1.2, Creatine Kinase MB Relative Index 2.35, Troponin I < 0.02 05/19/19 05:28: Nucleated Red Blood Cells % (auto) 0.0, Anion Gap 7L, Glomerular Filtration Rate > 60.0, Calcium Level 8.5L, Prothrombin Time 14.6H, Prothromb Time International Ratio 1.16, Magnesium Level 2.2, Total Bilirubin 0.4, Aspartate Amino Transf (AST/SGOT) 22, Alanine Aminotransferase (ALT/SGPT) 34, Alkaline Phosphatase 67, Total Protein 6.7, Albumin 3.1L, Albumin/Globulin Ratio 0.86L CBC/BMP Laboratory Tests 05/18/19 10:22 05/19/19 05:28 Siobhan KellyP May 19, 2019 09:41 MATILDE CHUNG DO May 20, 2019 18:59
[2019-05-19 11:51] VITALS: BP 141/73
--- NOTE | 2019-05-19 14:49 | ECGEPIP ---
[facility] - ED Test Date: 2019-05-18 Pat Name: DENNIS OLSEN Department: Room: - Gender: Male Beauty Specialist: JFlori : 1945 Requested By: KILEY Gutierrez Order Number: [id number] Reading MD: Sudha Sprague Measurements Intervals [place] Rate: 86 P: [place]: 0 QRS: 65 QRSD: 87 T: 73 QT: 375 QTc: 449 Interpretive Statements ATRIAL FIBRILLATION WITH ABERRANT CONDUCTION OR VENTRICULAR PREMATURE COMPLEXES ABNORMAL RHYTHM ECG PRIOR SINUS RHYTHM 07/03/17 Electronically Signed on 05-19-2019 14:49:19 EST by Sudha Sprague
--- NOTE | 2019-05-19 14:56 | ECGEPIP ---
[facility] - ED Test Date: 2019-05-18 Pat Name: DENNIS OLSEN Department: Room: - Gender: Male [employer] Commerce Consultant: : 1945 Requested By: KILEY Gutierrez Order Number: [id number] Reading MD: Sudha Sprague Measurements Intervals [place] Rate: 105 P: [place]: 0 QRS: 66 QRSD: 72 T: 67 QT: 349 QTc: 461 Interpretive Statements ATRIAL FIBRILLATION WITH RAPID VENTRICULAR RESPONSE WITH ABERRANT CONDUCTION OR VENTRICULAR PREMATURE COMPLEXES MINIMAL ST DEPRESSION ABNORMAL RHYTHM ECG INCREASED RATE 05/18/19 Electronically Signed on 05-19-2019 14:56:03 EST by Sudha Sprague
[2019-05-19 16:00] VITALS: BP 142/78
[2019-05-19 20:00] VITALS: BP 138/76
[2019-05-19] MEDS: lisinopriL 40 MG TAB PO SCH (20:22)
[2019-05-19] MEDS: ROSUVASTATIN 10 MG TAB (CRESTOR) PO SCH (20:22)
--- NOTE | 2019-05-19 22:11 | CR ---
DATE OF CONSULTATION: 05/19/2019 This is a 73-year white male who is being seen by gastroenterology (GI) for evaluation of rectal bleeding. The patient has multiple medical problems including a history of coronary artery disease, hypertension, prior tobacco use, peripheral vascular disease, bilateral carotid endarterectomies for stenosis. He also has atrial fibrillation status post cardioversion times two with unfortunately persistent atrial fibrillation. The patient has a history of deep vein thrombosis (DVT) status post right knee surgery and history of gastric ulcers and apparent gastric perforation from an ulcer. The patient has a history of an [id number] myocardial infarction (NSTEMI), previous history of gastrointestinal (GI) bleeding due to anticoagulation with aspirin and Plavix and in 2018 had a six-unit bleed. The patient presents now again with bright red blood per rectum as well as apparent black tarry stools. He does currently have some shortness of breath but no apparent chest pain. He had similar distress from the GI bleed back in 2018, and so he was advised to come to the emergency room. Apparent rectal examination in the emergency room did show some melena and bright red blood. There were no EKG changes or troponin elevation in the emergency room. Medications on admission include amlodipine, Carvedilol, Plavix, lisinopril, and a statin. ALLERGIES: CONTRAST MEDIUM which has caused him hives. PAST MEDICAL HISTORY: Positive for above, coronary artery disease, hypertension, and bilateral carotid endarterectomies. PAST SURGICAL HISTORY: Abdominal hernia repairs, bilateral carotid endarterectomies, and apparent according to the patient he has had previous gastric ulcer perforation requiring surgery. FAMILY HISTORY: Noncontributory to the above problem. SOCIAL HISTORY: The patient denies alcohol or drugs. REVIEW OF SYSTEMS: 11-point review of systems noncontributory to the above gastrointestinal (GI) problem. PHYSICAL EXAMINATION: GENERAL: He is a well-developed, well-nourished white male in no obvious acute distress. Appears stated age. CHEST: Clear to auscultation. CARDIOVASCULAR: Regular rhythm. No murmurs or gallops. Normal physiological split, S1, S2. ABDOMEN: Soft, nontender. No masses, guarding, rebound, or hepatosplenomegaly. Bowel sounds positive. EXTREMITIES: No clubbing, cyanosis, or edema. Sandra's negative. LABORATORY STUDIES: On admission shows a white count of 7200, hemoglobin and hematocrit was 13.6 and 41.9 last count on 10/16/2018, today it was 12.1 and 37.1. Chemistry was apparently normal. Coagulation was normal. IMAGING STUDIES: On admission included an abdominal CT which showed diastasis of the rectoabdominal muscles without definite hernia, no apparent mass was seen by CT, tiny fat containing umbilical hernia, diverticulum, and hepatic flexure of the colon. The patient had no diverticulitis. There was mild aneurysm dilatation of the abdominal aorta up to 3.1 cm. There is positive findings for gallstones apparently. The patient has some arthritis of the left hip and renal cyst. The patient has not required any blood transfusions. ANALYSIS: Lower gastrointestinal (GI) bleeding, unclear etiology. At the present time, the patient has been taken off all anticoagulation and Plavix. The plan will be to set the patient up for an upper and lower endoscopy for evaluation of the possible source of his bleeding. The patient does appear to be stable. The patient tells me he wants the endoscopies prior to discharge.
[2019-05-19 23:59] VITALS: BP 141/68
[2019-05-20 04:00] VITALS: BP 134/71
[2019-05-20 06:04] LABS: HEMATOCRIT 39.9 % (42.0-52.0); HEMOGLOBIN 12.4 g/dl (13.5-17.5); MEAN CORPUSCULAR HGB CONC 31.1 g/dl (32.0-36.5); MEAN CORPUSCULAR VOLUME 93.2 fl (80.0-96.0); PLATELET COUNT, AUTOMATED 189 10^3/uL (150-450); RED BLOOD COUNT 4.28 10^6/uL (4.30-6.10); WHITE BLOOD COUNT 5.9 10^3/uL (4.0-10.0)
[2019-05-20 06:31] LABS: ALBUMIN 3.2 GM/DL (3.2-5.2); ALT/SGPT 38 U/L (12-78); BILIRUBIN,TOTAL 0.3 MG/DL (0.2-1.0); BLOOD UREA NITROGEN 20 MG/DL (7-18); CALCIUM LEVEL 8.5 MG/DL (8.8-10.2); CARBON DIOXIDE LEVEL 26 MEQ/L (21-32); CHLORIDE LEVEL 110 MEQ/L (98-107); CREATININE FOR GFR 0.94 MG/DL (0.70-1.30); GLOMERULAR FILTRATION RATE > 60.0 (>42); GLUCOSE, FASTING 95 MG/DL (70-100); POTASSIUM SERUM 3.4 MEQ/L (3.5-5.1); SODIUM LEVEL 142 MEQ/L (136-145)
[2019-05-20] MEDS ORDERED: GOLYTELY SOLN 4000 ML BTL PO ONE (07:00)
[2019-05-20] MEDS ORDERED: POTASSIUM CHLORIDE 10 MEQ SR TABLET PO ONE (07:30)
[2019-05-20 08:00] VITALS: BP 156/94
--- NOTE | 2019-05-20 08:25 | IPNPDOC ---
Subjective Date Seen The patient was seen on 05/20/19. Subjective Chief Complaint/HPI GIB Events since last encounter Started clears with bowel prep this am. denies c/o. Constitutional: Denies: Chills, Fever, Night Sweats Skin: Denies: Rash, Lesions, Breakdown Pulmonary: Denies: Dyspnea, Cough Cardiovascular: Denies: Chest Pain, Palpitations, Orthopnea, Paroxysmal Noc. Dyspnea, Lt Headedness Gastrointestinal: Denies: Nausea, Vomiting, Abdominal Pain, Diarrhea, Constipation Genitourinary: Denies: Dysuria, Frequency, Incontinence, Retention Psych: Reports: Mood Normal; Denies: Depression, Memory Issues Objective Physical Examination General Exam: Positive: Alert, No Acute Distress Eye Exam: Positive: PERRLA, Conjunctiva & lids normal, EOMI; Negative: Sclera icteric ENT Exam: Positive: Atraumatic, Mucous membr. moist/pink, Pharynx Normal Neck Exam: Positive: Supple; Negative: JVD, thyromegaly Chest Exam: Positive: Clear to auscultation, Normal air movement Heart Exam: Positive: Tachycardic, Irregular Rhythm, Normal S1, Normal S2; Negative: Murmurs, Rubs Telemetry: Positive: Atrial fibrillation, PVCs Abdomen Exam: Positive: Normal bowel sounds, Soft; Negative: Tenderness, Hepatospenomegaly Extremity Exam: Positive: Normal pulses; Negative: Clubbing, Cyanosis, Edema Skin Exam: Positive: Nl turgor and temperature; Negative: Breakdown, Lesion Neuro Exam: Positive: Normal Gait, Normal Speech, Cranial Nerves 3-12 NL, Reflexes 2+ Psych Exam: Positive: Mental status NL, Anxiety, Oriented x 3 Assessment /Plan Problems (1) GI bleed Status: Acute Problem Specific Plan: Consult Specialist Problem Text: Dr. Colmenares consulted. Planned endoscopy 05/21/19. (2) Chest pain Status: Resolved Problem Text: most likely related to anxiety from blood and GIB. FOllows with Cardiology,. Has had Stress testing and echo within the last 2 years (3) History of DVT (deep vein thrombosis) Status: Chronic Problem Text: anti-coagulation on HOLD due to GIB (4) History of atrial fibrillation Status: Chronic Problem Text: anti-coagulation on HOLD due to GIB (5) Carotid stenosis Status: Chronic Response to Treatment: Stable (6) Hypertension Status: Chronic Response to Treatment: Stable Problem Text: Continue home dosing of carvedilol and amlodipine (7) Hyperlipidemia Problem Text: continue home dosing of rosuvastatin (8) Carotid artery disease without cerebral infarction Status: Chronic Plan/VTE VTE Prophylaxis Ordered?: No VTE Exclusion Pharmacological: Active Bleeding VS, I&O, 24H, Fishbone Vital Signs/I&O Vital Signs Date Time Temp Pulse Resp B/P (MAP) Pulse Ox O2 Delivery O2 Flow Rate FiO2 05/20/19 04:00 98.4 71 16 134/71 (92) 93 Room Air I&O- Last 24 Hours up to 6 AM 05/20/19 06:00 Intake Total 1680 ml Output Total 1000 ml Balance 680 ml Laboratory Data 24H LABS Laboratory Tests 2 05/20/19 05:48: Nucleated Red Blood Cells % (auto) 0.0, Anion Gap 6L, Glomerular Filtration Rate > 60.0, Calcium Level 8.5L, Total Bilirubin 0.3, Aspartate Amino Transf (AST/SGOT) 21, Alanine Aminotransferase (ALT/SGPT) 38, Alkaline Phosphatase 66, Total Protein 7.0, Albumin 3.2, Albumin/Globulin Ratio 0.84L CBC/BMP Laboratory Tests 05/20/19 05:48 Siobhan Kelly CONSTRUCTION REPRESENTATIVE May 20, 2019 08:24
[2019-05-20] MEDS: PANTOPRAZOLE 40MG INJ (PROTONIX) (C9113) IV SCH ×2 (08:38→21:22)
[2019-05-20] MEDS: amLODIPine 10 MG TAB PO SCH (08:39)
[2019-05-20] MEDS: CARVedilol 6.25 MG TAB PO SCH ×2 (08:39→21:23)
[2019-05-20] MEDS: CYANOCOBALAMIN 500 MCG TAB PO SCH (08:40)
[2019-05-20 16:00] VITALS: BP 130/74
[2019-05-20] MEDS: ACETAMINOPHEN TAB 650MG DOSE (2X325MG) PO PRN (17:18)
[2019-05-20 20:00] VITALS: BP 141/83
[2019-05-20] MEDS: ROSUVASTATIN 10 MG TAB (CRESTOR) PO SCH (21:22)
[2019-05-20] MEDS: lisinopriL 40 MG TAB PO SCH (21:23)
[2019-05-21] VITALS (8 sets, daily range): BP systolic 119–157; BP diastolic 60–87
[2019-05-21 06:03] LABS: HEMATOCRIT 39.2 % (42.0-52.0); HEMOGLOBIN 12.7 g/dl (13.5-17.5); MEAN CORPUSCULAR HEMOGLOBIN 29.5 pg (27.0-33.0); MEAN CORPUSCULAR HGB CONC 32.4 g/dl (32.0-36.5); MEAN CORPUSCULAR VOLUME 91.2 fl (80.0-96.0); PLATELET COUNT, AUTOMATED 192 10^3/uL (150-450); WHITE BLOOD COUNT 5.6 10^3/uL (4.0-10.0)
[2019-05-21 06:39] LABS: ALT/SGPT 31 U/L (12-78); BILIRUBIN,TOTAL 0.4 MG/DL (0.2-1.0); BLOOD UREA NITROGEN 9 MG/DL (7-18); CALCIUM LEVEL 8.5 MG/DL (8.8-10.2); CARBON DIOXIDE LEVEL 25 MEQ/L (21-32); CHLORIDE LEVEL 111 MEQ/L (98-107); CREATININE FOR GFR 0.79 MG/DL (0.70-1.30); GLOMERULAR FILTRATION RATE > 60.0 (>42); GLUCOSE, FASTING 94 MG/DL (70-100); POTASSIUM SERUM 3.5 MEQ/L (3.5-5.1); SODIUM LEVEL 143 MEQ/L (136-145); TOTAL PROTEIN 6.8 GM/DL (6.4-8.2)
[2019-05-21] MEDS: CARVedilol 6.25 MG TAB PO SCH ×2 (08:35→20:05)
[2019-05-21] MEDS: amLODIPine 10 MG TAB PO SCH (08:35)
[2019-05-21] MEDS: PANTOPRAZOLE 40MG INJ (PROTONIX) (C9113) IV SCH ×2 (08:36→20:03)
[2019-05-21] MEDS: CYANOCOBALAMIN 500 MCG TAB PO SCH (08:36)
[2019-05-21] MEDS ORDERED: LIDOCAINE 2% INJ 100 MG/5 ML SDV (FOR ANES.) As Ordered ONE (11:04)
[2019-05-21] MEDS ORDERED: propofoL 500 MG/50 ML VIAL As Ordered ONE (11:04)
[2019-05-21] MEDS ORDERED: SLF 3 ML SYR IV PRN (12:00)
--- NOTE | 2019-05-21 13:27 | ROOR ---
Patient Name: Linden Stoddard Procedure Date: 05/21/2019 1:09 PM Date of : 1945 Age: 73 Room: [facility] Gender: Male Note Status: Finalized Procedure: Upper GI endoscopy Indications: Iron deficiency anemia, Heartburn, Recent gastrointestinal bleeding Providers: Kai Colmenares MD Referring MD: 2. Inpatient 2. Inpatient, Sarah FOSS DO Requesting Provider: Medicines: Monitored Anesthesia Care Complications: No immediate complications. Procedure: Pre-Anesthesia Assessment: - The heart rate, respiratory rate, oxygen saturations, blood pressure, adequacy of pulmonary ventilation, and response to care were monitored throughout the procedure. The Endoscope was introduced through the mouth, and advanced to the second part of duodenum. The upper GI endoscopy was accomplished without difficulty. The patient tolerated the procedure well. Findings: The Z-line was regular and was found 40 cm from the incisors. A medium-sized hiatal hernia was present. No other significant abnormalities were identified in a careful examination of the stomach. The exam of the duodenum was otherwise normal. Impression: - Z-line regular, 40 cm from the incisors. - Medium-sized hiatal hernia. - No specimens collected. - The examination was otherwise normal. Recommendation: - Patient has a contact number available for emergencies. The signs and symptoms of potential delayed complications were discussed with the patient. Return to normal activities tomorrow. Written discharge instructions were provided to the patient. - High fiber diet. - Discharge patient to home. - Follow an antireflux regimen. - Continue present medications. - Return to referring physician. - The findings and recommendations were discussed with the patient's family. Kai Colmenares MD Kai Colmenares MD 05/21/2019 1:27:08 PM Electronically signed by Kai Colmenares MD Number of Addenda: 0 Note Initiated On: 05/21/2019 1:09 PM Estimated Blood Loss: Estimated blood loss: none.
--- NOTE | 2019-05-21 14:16 | ROOR ---
Patient Name: Linden Stoddard Procedure Date: 05/21/2019 1:10 PM Date of : 1945 Age: 73 Room: Main OR Gender: Male Note Status: Finalized Procedure: Total Colonoscopy to Cecum + Cold + Hot Snare Polypectomy + Hemoclips Indications: Rectal bleeding Providers: Kai Colmenares MD Referring MD: 2. Inpatient 2. Inpatient, Sarah FOSS DO Requesting Provider: Medicines: Monitored Anesthesia Care Complications: No immediate complications. Procedure: Pre-Anesthesia Assessment: - The heart rate, respiratory rate, oxygen saturations, blood pressure, adequacy of pulmonary ventilation, and response to care were monitored throughout the procedure. The Colonoscope was introduced through the anus and advanced to the cecum, identified by appendiceal orifice and ileocecal valve. The colonoscopy was performed without difficulty. The patient tolerated the procedure well. The quality of the bowel preparation was excellent. Findings: The perianal and digital rectal examinations were normal. Non-bleeding internal hemorrhoids were found during retroflexion. The hemorrhoids were small and Grade I (internal hemorrhoids that do not prolapse). Multiple small and large-mouthed diverticula were found in the recto-sigmoid colon, sigmoid colon and descending colon. Multiple sessile polyps were found in the rectum. The polyps were medium in size. These polyps were removed with a hot snare. Resection and retrieval were complete. To prevent bleeding after the polypectomy, one hemostatic clip was successfully placed (MR conditional). There was no bleeding at the end of the procedure. A large polyp was found at 25 cm proximal to the anus. The polyp was semi-pedunculated. The polyp was removed with a hot snare. Resection and retrieval were complete. To prevent bleeding after the polypectomy, one hemostatic clip was successfully placed (MR conditional). There was no bleeding at the end of the procedure. A small polyp was found at 60 cm proximal to the anus. The polyp was sessile. The polyp was removed with a cold snare. Resection and retrieval were complete. The exam was otherwise without abnormality on direct and retroflexion views. Impression: - Non-bleeding internal hemorrhoids. - Diverticulosis in the recto-sigmoid colon, in the sigmoid colon and in the descending colon. - Multiple medium polyps in the rectum, removed with a hot snare. Resected and retrieved. Clip (MR conditional) was placed. - One large polyp at 25 cm proximal to the anus, removed with a hot snare. Resected and retrieved. Clip (MR conditional) was placed. - One small polyp at 60 cm proximal to the anus, removed with a cold snare. Resected and retrieved. - The examination was otherwise normal on direct and retroflexion views. - The exam was otherwise normal to the cecum. Recommendation: - Patient has a contact number available for emergencies. The signs and symptoms of potential delayed complications were discussed with the patient. Return to normal activities tomorrow. Written discharge instructions were provided to the patient. - High fiber diet. - Discharge patient to home. - Continue present medications. - Await pathology results. - Telephone GI clinic for pathology results in 1 week. - Repeat colonoscopy for symptoms only. - Return to referring physician. - The findings and recommendations were discussed with the patient's family. Kai Colmenares MD Kai Colmenares MD 05/21/2019 2:15:32 PM Electronically signed by Kai Colmenares MD Number of Addenda: 0 Note Initiated On: 05/21/2019 1:10 PM Estimated Blood Loss: Estimated blood loss: none.
[2019-05-21] MEDS: SLF 3 ML SYR IV SCH ×2 (14:38→20:05)
[2019-05-21] MEDS: CLOPIDOGREL 75 MG TAB PO SCH (19:04)
[2019-05-21] MEDS: ROSUVASTATIN 10 MG TAB (CRESTOR) PO SCH (20:04)
[2019-05-21] MEDS: lisinopriL 40 MG TAB PO SCH (20:05)
[2019-05-22 05:33] VITALS: BP 135/64
[2019-05-22] MEDS: SLF 3 ML SYR IV SCH ×2 (05:40→13:00)
[2019-05-22 07:17] LABS: HEMATOCRIT 40.5 % (42.0-52.0); HEMOGLOBIN 12.9 g/dl (13.5-17.5); MEAN CORPUSCULAR HEMOGLOBIN 29.3 pg (27.0-33.0); MEAN CORPUSCULAR HGB CONC 31.9 g/dl (32.0-36.5); PLATELET COUNT, AUTOMATED 198 10^3/uL (150-450); WHITE BLOOD COUNT 7.9 10^3/uL (4.0-10.0)
[2019-05-22 07:45] LABS: ALBUMIN 3.2 GM/DL (3.2-5.2); ALT/SGPT 32 U/L (12-78); BILIRUBIN,TOTAL 0.5 MG/DL (0.2-1.0); BLOOD UREA NITROGEN 12 MG/DL (7-18); CALCIUM LEVEL 8.7 MG/DL (8.8-10.2); CARBON DIOXIDE LEVEL 27 MEQ/L (21-32); CHLORIDE LEVEL 108 MEQ/L (98-107); CREATININE FOR GFR 0.86 MG/DL (0.70-1.30); GLOMERULAR FILTRATION RATE > 60.0 (>42); GLUCOSE, FASTING 101 MG/DL (70-100); POTASSIUM SERUM 3.4 MEQ/L (3.5-5.1); SODIUM LEVEL 142 MEQ/L (136-145); TOTAL PROTEIN 7.3 GM/DL (6.4-8.2)
[2019-05-22 08:38] VITALS: BP 140/70
[2019-05-22] MEDS: PANTOPRAZOLE 40MG INJ (PROTONIX) (C9113) IV SCH (08:38)
[2019-05-22] MEDS: amLODIPine 10 MG TAB PO SCH (08:38)
[2019-05-22] MEDS: CARVedilol 6.25 MG TAB PO SCH (08:38)
[2019-05-22] MEDS: CLOPIDOGREL 75 MG TAB PO SCH (08:38)
[2019-05-22] MEDS: CYANOCOBALAMIN 500 MCG TAB PO SCH (08:40)
[2019-05-22] MEDS: ACETAMINOPHEN TAB 650MG DOSE (2X325MG) PO PRN (13:00)
[2019-05-22 15:14] VITALS: BP 117/63
--- NOTE | 2019-05-22 20:04 | DS.PDOC ---
Discharge Summary General Date of Admission May 18, 2019 at 18:05 Date of Discharge 05/22/2019 Primary Care Physician: MATILDE CHUNG DO Attending Physician: Fabian Reich MD Specialist/Consultants Involve: Kai Colmenares Discharge Summary PROCEDURES PERFORMED DURING STAY: [None]. ADMITTING DIAGNOSES: 1. . DISCHARGE DIAGNOSES: 1. . COMPLICATIONS/CHIEF COMPLAINT: Chest Pain; Gi Bleed. HISTORY OF PRESENT ILLNESS: . HOSPITAL COURSE: . DISCHARGE MEDICATIONS: Please see below. ALLERGIES: Please see below. PHYSICAL EXAMINATION ON DISCHARGE: VITAL SIGNS: Please see below. GENERAL: HEENT: NECK: CARDIOVASCULAR EXAMINATION: RESPIRATORY EXAMINATION: ABDOMINAL EXAMINATION: EXTREMITIES: SKIN: NEUROLOGICAL EXAMINATION: PSYCHIATRIC EXAMINATION: LABORATORY DATA: Please see below. IMAGING: PROGNOSIS: ACTIVITY: [As tolerated]. DIET: DISCHARGE PLAN: DISPOSITION: . DISCHARGE INSTRUCTIONS: 1. . ITEMS TO FOLLOWUP ON ON OUTPATIENT: 1. . DISCHARGE CONDITION: [Stable]. TIME SPENT ON DISCHARGE: Greater than minutes. Vital Signs/I&Os Vital Signs Date Time Temp Pulse Resp B/P (MAP) Pulse Ox O2 Delivery O2 Flow Rate FiO2 05/22/19 15:14 98.0 78 20 117/63 (81) 92 Room Air I&O- Last 24 Hours up to 6 AM 05/22/19 06:00 Intake Total 550 ml Output Total 200 ml Balance 350 ml Laboratory Data Labs 24H Laboratory Tests 2 05/22/19 07:00: Nucleated Red Blood Cells % (auto) 0.0, Anion Gap 7L, Glomerular Filtration Rate > 60.0, Calcium Level 8.7L, Total Bilirubin 0.5, Aspartate Amino Transf (AST/SGOT) 21, Alanine Aminotransferase (ALT/SGPT) 32, Alkaline Phosphatase 74, Total Protein 7.3, Albumin 3.2, Albumin/Globulin Ratio 0.78L CBC/BMP Laboratory Tests 05/22/19 07:00 Discharge Medications Scheduled Amlodipine Besylate (Amlodipine Besylate) 10 Mg Tablet, 10 MG PO DAILY, (Reported) Carvedilol (Carvedilol) 6.25 Mg Tab, 6.25 MG PO BID, (Reported) Clopidogrel Bisulfate (Clopidogrel) 75 Mg Tab, 75 MG PO DAILY, (Reported) Cyanocobalamin (Vitamin B-12) (Vitamin B-12) 1,000 Mcg Tablet, 1,000 MCG PO DAILY, (Reported) Lisinopril (Lisinopril) 40 Mg Tab, 40 MG PO QHS, (Reported) Rosuvastatin Calcium (Rosuvastatin Calcium) 40 Mg Tablet, 40 MG PO QHS, (Reported) Scheduled PRN Acetaminophen (Tylenol) 325 Mg Tablet, 650 MG PO TID PRN for PAIN, (Reported) Fluticasone Propionate (Flonase Allergy Relief) 9.9 Ml [place].susp, 2 SPRAY NA DAILY PRN for ALLERGIES, (Reported) Polyethylene Glycol 3350 (Miralax) 119 Gm Powder, 17 GM PO DAILY PRN for CONSTIPATION, (Reported) Allergies Coded Allergies: Contrast Media (Verified Allergy, Intermediate, HIVES, 05/18/19) able to tolerate pre-medicated. chlorthalidone (Verified Adverse Reaction, Mild, Headache, 05/18/19) Fabian Reich MD May 22, 2019 20:04
== END 2019-05-22 20:30 | disposition home or self-care (01) | DRG 379 ==
LOC: M ED 10:04 → M ED INP 18:05 → ENRESERV 18:54 → M PCU 19:27 → M MS5PR 05-21 16:41
PROVIDERS: ADMIT Internal Medicine; ATTEND Family Medicine
PROC: 0DBP7ZX Excision of Rectum, Via Natural or Artificial Opening, Diagnostic (ICD-10-PCS; 2019-05-21)
PROC: 0DBQ7ZX Excision of Anus, Via Natural or Artificial Opening, Diagnostic (ICD-10-PCS; 2019-05-21)
PROC: 0W3P8ZZ Control Bleeding in Gastrointestinal Tract, Via Natural or Artificial Opening Endoscopic (ICD-10-PCS; 2019-05-21)
PROC: 0DJ08ZZ Inspection of Upper Intestinal Tract, Via Natural or Artificial Opening Endoscopic (ICD-10-PCS; principal; 2019-05-21 12:45)
DX: K92.2 Gastrointestinal hemorrhage, unspecified (principal); I25.10 Atherosclerotic heart disease of native coronary artery without angina pectoris; I10 Essential (primary) hypertension; Z87.891 Personal history of nicotine dependence; I73.9 Peripheral vascular disease, unspecified; I48.91 Unspecified atrial fibrillation; R00.0 Tachycardia, unspecified; Z87.11 Personal history of peptic ulcer disease; K92.1 Melena; Z79.899 Other long term (current) drug therapy; Z91.041 Radiographic dye allergy status; Z88.8 Allergy status to other drugs, medicaments and biological substances; F41.9 Anxiety disorder, unspecified; E78.5 Hyperlipidemia, unspecified; K59.09 Other constipation; Z86.718 Personal history of other venous thrombosis and embolism; I65.29 Occlusion and stenosis of unspecified carotid artery; Z79.01 Long term (current) use of anticoagulants; K64.0 First degree hemorrhoids

== ENCOUNTER → 2019-06-02 | Outpatient (REF) | payer MEDICARE, BC, OTHER ==
[~2019-06-02] MED LIST changes: +ACET-907 PO; +CYAN100050 PO; +FLON1SPR; +MIRA3350 PO; +ROSU40TA4 PO
[2019-06-02 16:48] LABS: HEMATOCRIT 40.8 % (42.0-52.0); HEMOGLOBIN 13.1 g/dl (13.5-17.5); MEAN CORPUSCULAR HEMOGLOBIN 29.8 pg (27.0-33.0); MEAN CORPUSCULAR HGB CONC 32.1 g/dl (32.0-36.5); MEAN CORPUSCULAR VOLUME 92.9 fl (80.0-96.0); PLATELET COUNT, AUTOMATED 260 10^3/uL (150-450); RED BLOOD COUNT 4.39 10^6/uL (4.30-6.10); WHITE BLOOD COUNT 6.1 10^3/uL (4.0-10.0)
== END ==
LOC: M SFHCADAM 16:22
PROVIDERS: ATTEND Family Medicine
DX: K92.2 Gastrointestinal hemorrhage, unspecified (principal); C61 Malignant neoplasm of prostate
CPT/HCPCS: 36415; 84153; 85027; G0463

== ENCOUNTER → 2019-06-02 | Outpatient (REF) | payer MEDICARE, BC, OTHER | LOC: M LABDRWAD 16:24 | PROVIDERS: ATTEND Urology | DX: C61 Malignant neoplasm of prostate (principal) ==

== ENCOUNTER → 2020-10-02 | Outpatient (REF) | payer MEDICARE, OTHER, BC ==
[~2020-10-02] MED LIST changes: -AMLO10TA5 PO; +AMLO1TAB25 PO; +CYAN500T14 PO; -CYAN500T8 PO; -LISI-542 PO; +LISI-898 PO; +LISI10TA22 PO; -LISI10TA4 PO; -LISI40TA PO; +LISI40TA4 PO; -PEG1POW PO; +POLY17PO18 PO
== END ==
LOC: M LABDRWAD 12:14
PROVIDERS: ATTEND Urology
DX: C61 Malignant neoplasm of prostate (principal); R06.02 Shortness of breath

== ENCOUNTER → 2020-10-02 | Outpatient (REF) | payer MEDICARE, OTHER, BC | LOC: M LABDRWAD 12:16 | PROVIDERS: ATTEND Physician Assistant | DX: R06.02 Shortness of breath (principal) ==

== ENCOUNTER → 2020-10-06 | Outpatient (REF) | payer MEDICARE, OTHER ==
[2020-10-06 17:27] LABS: ALBUMIN 3.7 GM/DL (3.2-5.2); ALT/SGPT 40 U/L (12-78); BILIRUBIN,TOTAL 0.4 MG/DL (0.2-1.0); BLOOD UREA NITROGEN 18 MG/DL (7-18); CALCIUM LEVEL 9.2 MG/DL (8.8-10.2); CARBON DIOXIDE LEVEL 30 MEQ/L (21-32); CHLORIDE LEVEL 108 MEQ/L (98-107); FREE T4 0.94 NG/DL (0.76-1.46); GLOMERULAR FILTRATION RATE > 60.0 (>42); GLUCOSE, FASTING 81 MG/DL (70-100); POTASSIUM SERUM 4.1 MEQ/L (3.5-5.1); SODIUM LEVEL 142 MEQ/L (136-145); TOTAL PROTEIN 7.8 GM/DL (6.4-8.2)
== END ==
LOC: M SFHCADAM 15:19
PROVIDERS: ATTEND Family Medicine
DX: R60.9 Edema, unspecified (principal)

== ENCOUNTER → 2020-10-06 | Outpatient (CLI) | payer MEDICARE, OTHER ==
--- NOTE | 2020-10-06 15:45 | REP ---
INDICATION: PERIPHERAL EDEMA. COMPARISON: Comparison chest x-ray 18 May 2019. TECHNIQUE: Two views.. FINDINGS: The lungs are hyperinflated but free of infiltrate. The pleural angles are sharp. Heart size is normal. Pulmonary vasculature is not increased. Vascular calcification is observed. There are degenerative changes in the thoracic spine. IMPRESSION: Hyperinflation consistent with some degree of COPD. Otherwise no active disease. Normal heart size.. <Electronically signed by Davis Garcia > 10/06/20 [id number]
--- NOTE | 2020-10-06 15:48 | REP ---
INDICATION: PERIPHERAL EDEMA. COMPARISON: None. TECHNIQUE: Six views of the lumbar spine are provided. FINDINGS: There is straightening of the normal lumbar lordosis. Lumbar vertebral body heights are preserved. Diffuse degenerative disc disease is seen. This is least pronounced at L5-S1. Bridging osteophytes are visible anteriorly at L1-2 and T12-L1 on the lateral radiograph. Pedicles and posterior elements are intact. There is no evidence of spondylolysis or spondylolisthesis. Vascular calcification is observed in the abdominal aorta. There is evidence of a small abdominal aortic aneurysm as seen on CT study from May 18, 2019. IMPRESSION: Degenerative disc and osteoarthritic facet changes as noted above. Small abdominal aortic aneurysm unchanged from the abdominal CT study May 18, 2019. No acute bony abnormality seen. Straightening. <Electronically signed by Davis Garcia > 10/06/20 [id number]
== END ==
LOC: M ADAMS 15:22
PROVIDERS: ATTEND Family Medicine
DX: M51.36 Other intervertebral disc degeneration, lumbar region (principal); I71.4 Abdominal aortic aneurysm, without rupture; R60.9 Edema, unspecified; M54.5 Low back pain
CPT/HCPCS: 71046; 72110; 80053; 84439; 84443; G0463

== ENCOUNTER → 2020-10-26 | Outpatient (CLI) | payer MEDICARE, BC, OTHER ==
[~2020-10-26] MED LIST changes: +ISOVUE-370 76% 100ML VIAL As Ordered ONE
--- NOTE | 2020-10-26 15:32 | REP ---
INDICATION: PROSTATE CA. COMPARISON: Comparison CT study is from May 18, 2019.. TECHNIQUE: Helical scanning is acquired and 3 mm axial images re-formatted. Coronal and sagittal MPR images are generated. The CT contrast enhancement dose is 100 mL of intravenous Isovue 370. FINDINGS: Digital preliminary greeter guest services radiograph is noncontributory. There is mild linear fibrosis in the right lower lobe posteriorly on lung window settings. No pleural effusion is seen. There is left and right atrial dilation in the heart. There are several small subcentimeter cysts in the liver. The largest of these is in the right lobe posteriorly measuring 1.2 cm in diameter. There are calcifications in the dependent portion the gallbladder indicating cholelithiasis. There is a cyst in the upper pole the right kidney which measures 6.5 cm in greatest diameter. There is a cyst in the lower pole of the left kidney which measures 3.7 cm in greatest diameter. Fairly extensive vascular calcification is observed. No abnormality is noted in the pancreas. No retroperitoneal mass or adenopathy is seen. There is a small infrarenal abdominal aortic aneurysm measuring 3.5 cm in anteroposterior span. There is mild to moderate enlargement of the prostate. The prostate contains 2 or 3 calcifications. The left seminal vesicle is slightly larger than the right, unchanged from comparison studies.. This is of uncertain significance. No other evidence of extraprostatic disease. No pelvic or retroperitoneal adenopathy is appreciated. Urinary bladder is intact. Bone window settings show no evidence of lytic or sclerotic metastatic disease. 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 Sacroiliac joints are partially fused. There is an anastomotic suture line in the small intestine in the central abdomen. No obstructive lesion is seen. IMPRESSION: No evidence of adenopathy or metastatic disease. Enlarged prostate. Cholelithiasis. Renal in a [place] cysts. Small infrarenal abdominal aortic aneurysm. <Electronically signed by Davis Garcia > 10/26/20 [id number]
== END ==
LOC: M RAD 13:02
PROVIDERS: ATTEND Urology
DX: C61 Malignant neoplasm of prostate (principal); K76.89 Other specified diseases of liver; I71.4 Abdominal aortic aneurysm, without rupture
CPT/HCPCS: 74177; Q9967

== ENCOUNTER → 2020-10-27 | Outpatient (REF) | payer MEDICARE, BC, OTHER ==
[~2020-10-27] MED LIST changes: -ISOVUE-370 76% 100ML VIAL As Ordered ONE
[2020-10-27 16:46] LABS: CREATININE FOR GFR 1.31 MG/DL (0.70-1.30); GLOMERULAR FILTRATION RATE 56.6 (>42); MAGNESIUM LEVEL 2.5 MG/DL (1.8-2.4); THYROID STIMULATING HORMONE 0.422 uIU/ML (0.358-3.740)
== END ==
LOC: M LABDRWAD 15:35
PROVIDERS: ATTEND Physician Assistant
DX: I49.3 Ventricular premature depolarization (principal); I48.0 Paroxysmal atrial fibrillation
CPT/HCPCS: 36415; 80048; 83735; 84443; G0463

== ENCOUNTER → 2020-10-27 | Outpatient (CLI) | payer MEDICARE, BC, OTHER | LOC: M RAD 08:35 | PROVIDERS: ATTEND Family Medicine | DX: I71.4 Abdominal aortic aneurysm, without rupture (principal); M54.5 Low back pain ==

== ENCOUNTER → 2021-12-25 | Outpatient (CLI) | payer MEDICARE, BC, OTHER ==
[~2021-12-25] MED LIST changes: -LISI-898 PO; +LISI5TAB11 PO
== END ==
LOC: M ADAMS 11:20
PROVIDERS: ATTEND Urology
DX: C61 Malignant neoplasm of prostate (principal)

== ENCOUNTER → 2022-08-01 | Outpatient (REF) | payer MEDICARE, OTHER | LOC: M LABDRWAD 12:46 | PROVIDERS: ATTEND Urology | DX: C61 Malignant neoplasm of prostate (principal) ==

== ENCOUNTER → 2022-08-19 | Outpatient (REF) | payer MEDICARE, OTHER ==
[2022-08-19 17:13] LABS: BASO # 0.1 10^3/uL (0.0-0.2); BASO % 1.2 % (0.0-1.0); EOS # 0.3 10^3/uL (0.0-0.5); EOS % 3.7 % (0.0-3.0); HEMATOCRIT 35.3 % (42.0-52.0); HEMOGLOBIN 10.8 g/dl (13.5-17.5); LYMPH # 1.3 10^3/uL (1.5-5.0); LYMPH % 18.9 % (24.0-44.0); MEAN CORPUSCULAR HEMOGLOBIN 28.5 pg (27.0-33.0); MEAN CORPUSCULAR HGB CONC 30.6 g/dl (32.0-36.5); MEAN CORPUSCULAR VOLUME 93.1 fl (80.0-96.0); MONO # 0.8 10^3/uL (0.0-0.8); MONO % 12.2 % (2.0-8.0); NEUTROPHILS # 4.4 10^3/uL (1.5-8.5); NEUTROPHILS % 63.9 % (36.0-66.0); PLATELET COUNT, AUTOMATED 240 10^3/uL (150-450); RED BLOOD COUNT 3.79 10^6/uL (4.30-6.10); WHITE BLOOD COUNT 6.8 10^3/uL (4.0-10.0)
[2022-08-19 17:24] LABS: THYROID STIMULATING HORMONE 0.721 uIU/ML (0.55-4.78)
[2022-08-19 17:58] LABS: ALBUMIN 3.1 G/DL (3.2-5.2); BILIRUBIN,TOTAL 0.3 MG/DL (0.3-1.2); CALCIUM LEVEL 8.9 MG/DL (8.3-10.6); CHOLESTEROL RISK RATIO 2.41 (<5); CREATININE FOR GFR 2.4 MG/DL (0.70-1.30); HDL CHOLESTEROL 38.9 MG/DL (>40); LDL CHOLESTEROL 39.1 MG/DL (<100); NON-HDL-C 55.1 MG/DL; POTASSIUM SERUM 2.4 MMOL/L (3.5-5.1); TOTAL PROTEIN 6.6 G/DL (5.7-8.2)
== END ==
LOC: M SFHCADAM 13:12
PROVIDERS: ATTEND Family Medicine
DX: Z00.00 Encounter for general adult medical examination without abnormal findings (principal)

== ENCOUNTER → 2022-08-27 | Outpatient (REF) | payer MEDICARE, OTHER ==
[2022-08-27 20:16] LABS: CALCIUM LEVEL 8.9 MG/DL (8.3-10.6); CREATININE FOR GFR 1.85 MG/DL (0.70-1.30); GLOMERULAR FILTRATION RATE 37.8 (>42); POTASSIUM SERUM 2.9 MMOL/L (3.5-5.1)
== END ==
LOC: M SFHCADAM 12:59
PROVIDERS: ATTEND Family Medicine
DX: E87.6 Hypokalemia (principal)

== ENCOUNTER → 2022-08-29 | Outpatient (REF) | payer MEDICARE, OTHER | LOC: M SFHCADAM 13:12 | PROVIDERS: ATTEND Family Medicine | DX: Z53.9 Procedure and treatment not carried out, unspecified reason (principal) ==

== ENCOUNTER → 2022-09-04 | Outpatient (REF) | payer MEDICARE, OTHER ==
[2022-09-04 13:41] LABS: BASO # 0.1 10^3/uL (0.0-0.2); BASO % 0.9 % (0.0-1.0); EOS # 0.3 10^3/uL (0.0-0.5); EOS % 3.8 % (0.0-3.0); HEMOGLOBIN 10.3 g/dl (13.5-17.5); LYMPH # 1.1 10^3/uL (1.5-5.0); LYMPH % 16.3 % (24.0-44.0); MEAN CORPUSCULAR HEMOGLOBIN 28.3 pg (27.0-33.0); MEAN CORPUSCULAR HGB CONC 30.3 g/dl (32.0-36.5); MEAN CORPUSCULAR VOLUME 93.4 fl (80.0-96.0); MONO # 0.8 10^3/uL (0.0-0.8); MONO % 11.5 % (2.0-8.0); NEUTROPHILS # 4.5 10^3/uL (1.5-8.5); NEUTROPHILS % 67.2 % (36.0-66.0); PLATELET COUNT, AUTOMATED 196 10^3/uL (150-450); RED BLOOD COUNT 3.64 10^6/uL (4.30-6.10); WHITE BLOOD COUNT 6.6 10^3/uL (4.0-10.0)
[2022-09-04 13:54] LABS: CALCIUM LEVEL 8.6 MG/DL (8.3-10.6); CREATININE FOR GFR 1.55 MG/DL (0.70-1.30); GLOMERULAR FILTRATION RATE 46.4 (>42); POTASSIUM SERUM 3.1 MMOL/L (3.5-5.1)
[2022-09-04 13:55] LABS: PERCENT SATURATION 15.3 % (19.7-50.0)
[2022-09-04 13:56] LABS: FERRITIN 11.3 NG/ML (10.5-307.3)
[2022-09-04 13:57] LABS: FOLATE 10.1 NG/ML (>5.4)
== END ==
LOC: M SFHCADAM 11:15
PROVIDERS: ATTEND Family Medicine
DX: E87.6 Hypokalemia (principal); N17.9 Acute kidney failure, unspecified; D64.9 Anemia, unspecified

== ENCOUNTER → 2022-09-18 | Outpatient (CLI) | payer MEDICARE, BC, OTHER | LOC: M RAD 09:55 | PROVIDERS: ATTEND Family Medicine | DX: I77.9 Disorder of arteries and arterioles, unspecified (principal); I65.23 Occlusion and stenosis of bilateral carotid arteries ==

== ENCOUNTER → 2022-10-09 | Outpatient (REF) | payer MEDICARE, BC, OTHER ==
[~2022-10-09] MED LIST changes: +CYAN-1 PO; -CYAN100050 PO
== END ==
LOC: M SFHCADAM 15:57
PROVIDERS: ATTEND Family Medicine
DX: E87.6 Hypokalemia (principal); N17.9 Acute kidney failure, unspecified; D64.9 Anemia, unspecified

== ENCOUNTER → 2022-12-05 | Outpatient (REF) | payer MEDICARE, OTHER ==
[2022-12-05 13:17] LABS: BASO # 0.1 10^3/uL (0.0-0.2); BASO % 1.1 % (0.0-1.0); EOS # 0.3 10^3/uL (0.0-0.5); EOS % 5.2 % (0.0-3.0); HEMATOCRIT 28.8 % (42.0-52.0); HEMOGLOBIN 8.9 g/dl (13.5-17.5); LYMPH # 1.1 10^3/uL (1.5-5.0); MEAN CORPUSCULAR HGB CONC 30.9 g/dl (32.0-36.5); MEAN CORPUSCULAR VOLUME 93.8 fl (80.0-96.0); MONO # 0.9 10^3/uL (0.0-0.8); MONO % 15.2 % (2.0-8.0); NEUTROPHILS # 3.7 10^3/uL (1.5-8.5); NEUTROPHILS % 60.2 % (36.0-66.0); PLATELET COUNT, AUTOMATED 193 10^3/uL (150-450); RED BLOOD COUNT 3.07 10^6/uL (4.30-6.10); WHITE BLOOD COUNT 6.2 10^3/uL (4.0-10.0)
[2022-12-05 13:35] LABS: PERCENT SATURATION 6.7 % (19.7-50.0)
[2022-12-05 13:45] LABS: ALBUMIN 3.1 G/DL (3.2-5.2); BILIRUBIN,TOTAL 0.3 MG/DL (0.3-1.2); CALCIUM LEVEL 9.1 MG/DL (8.3-10.6); CREATININE FOR GFR 1.54 MG/DL (0.70-1.30); FERRITIN 9.8 NG/ML (10.5-307.3); FOLATE 14.3 NG/ML (>5.4); GLOMERULAR FILTRATION RATE 46.7 (>42); MAGNESIUM LEVEL 1.9 MG/DL (1.8-2.4); POTASSIUM SERUM 2.9 MMOL/L (3.5-5.1); TOTAL PROTEIN 6.4 G/DL (5.7-8.2)
== END ==
LOC: M SFHCADAM 11:15
PROVIDERS: ATTEND Family Medicine
DX: E61.1 Iron deficiency (principal); E87.6 Hypokalemia; I48.0 Paroxysmal atrial fibrillation; I11.9 Hypertensive heart disease without heart failure

== ENCOUNTER → 2022-12-05 | Outpatient (REF) | payer MEDICARE, OTHER | LOC: M SFHCADAM 13:11 | PROVIDERS: ATTEND Physician Assistant Medical | DX: E61.1 Iron deficiency (principal) ==

== ENCOUNTER → 2022-12-18 | Outpatient (REF) | payer MEDICARE, OTHER ==
[2022-12-18 13:35] LABS: CREATININE FOR GFR 1.39 MG/DL (0.70-1.30); GLOMERULAR FILTRATION RATE 52.6 (>42)
== END ==
LOC: M SFHCADAM 09:49
PROVIDERS: ATTEND Physician Assistant Medical
DX: E87.6 Hypokalemia (principal)

== ENCOUNTER → 2023-01-29 | Outpatient (REF) | payer MEDICARE, OTHER ==
[2023-01-29 13:56] LABS: CALCIUM LEVEL 8.6 MG/DL (8.3-10.6); CREATININE FOR GFR 1.73 MG/DL (0.70-1.30); GLOMERULAR FILTRATION RATE 40.9 (>42); POTASSIUM SERUM 3.9 MMOL/L (3.5-5.1)
== END ==
LOC: M SFHCADAM 11:21
PROVIDERS: ATTEND Physician Assistant Medical
DX: E87.6 Hypokalemia (principal)

== ENCOUNTER → 2023-03-19 | Outpatient (REF) | payer MEDICARE, OTHER ==
[2023-03-19 13:36] LABS: MEAN CORPUSCULAR HEMOGLOBIN 31.3 pg (27.0-33.0); MEAN CORPUSCULAR HGB CONC 31.3 g/dl (32.0-36.5); MEAN CORPUSCULAR VOLUME 100.3 fl (80.0-96.0); PLATELET COUNT, AUTOMATED 184 10^3/uL (150-450); RED BLOOD COUNT 3.19 10^6/uL (4.30-6.10); WHITE BLOOD COUNT 6.6 10^3/uL (4.0-10.0)
[2023-03-19 14:01] LABS: CALCIUM LEVEL 9.1 MG/DL (8.3-10.6); CREATININE FOR GFR 1.27 MG/DL (0.70-1.30); GLOMERULAR FILTRATION RATE 58.4 (>42); PERCENT SATURATION 17.8 % (19.7-50.0); POTASSIUM SERUM 3.6 MMOL/L (3.5-5.1)
[2023-03-19 14:05] LABS: FERRITIN 22.7 NG/ML (10.5-307.3)
== END ==
LOC: M SFHCADAM 11:22
PROVIDERS: ATTEND Physician Assistant Medical
DX: D50.0 Iron deficiency anemia secondary to blood loss (chronic) (principal); E87.6 Hypokalemia

== ENCOUNTER 2023-03-24 09:02 | Inpatient (IN) | payer MEDICARE, OTHER ==
[~2023-03-24] VITALS: Ht 182.9 cm; Wt 82.1 kg
[2023-03-24] MEDS ORDERED: ATOR40TA75 PO (09:46)
[2023-03-24] MEDS ORDERED: POTA-141 FT (09:48)
[2023-03-24] MEDS ORDERED: FERR324T21 PO (09:48)
[2023-03-24 10:38] LABS: BASO % 0.4 % (0.0-1.0); EOS # 0.2 10^3/uL (0.0-0.5); EOS % 2.5 % (0.0-3.0); HEMATOCRIT 32.1 % (42.0-52.0); HEMOGLOBIN 9.8 g/dl (13.5-17.5); LYMPH % 13.2 % (24.0-44.0); MEAN CORPUSCULAR HEMOGLOBIN 30.7 pg (27.0-33.0); MEAN CORPUSCULAR HGB CONC 30.5 g/dl (32.0-36.5); MEAN CORPUSCULAR VOLUME 100.6 fl (80.0-96.0); NEUTROPHILS # 5.1 10^3/uL (1.5-8.5); NEUTROPHILS % 70.5 % (36.0-66.0); PLATELET COUNT, AUTOMATED 203 10^3/uL (150-450); RED BLOOD COUNT 3.19 10^6/uL (4.30-6.10); WHITE BLOOD COUNT 7.3 10^3/uL (4.0-10.0)
[2023-03-24 10:53] LABS: INR 1.18; PROTHROMBIN TIME 14.7 SECONDS (12.5-14.5)
[2023-03-24 10:54] LABS: PARTIAL THROMBOPLASTIN TIME 27.8 SECONDS (24.8-34.2)
[2023-03-24 10:55] LABS: CK-MB VALUE MASS < 1.0 NG/ML (<3.6)
[2023-03-24 10:56] LABS: LIPASE 24 U/L (12-53)
[2023-03-24 10:58] LABS: ALBUMIN 2.8 G/DL (3.2-5.2); ALKALINE PHOSPHATASE 55 U/L (46-116); ALT/SGPT 15 U/L (7.0-40); AST/SGOT 17 U/L (<34); BILIRUBIN,DIRECT 0.2 MG/DL (<0.4); BILIRUBIN,TOTAL 0.3 MG/DL (0.3-1.2); BLOOD UREA NITROGEN 22 MG/DL (9-23); CARBON DIOXIDE LEVEL 31 MMOL/L (20-31); CHLORIDE LEVEL 105 MMOL/L (98-107); CREATININE FOR GFR 1.44 MG/DL (0.70-1.30); GLOMERULAR FILTRATION RATE 50.5 (>42); GLUCOSE, FASTING 132 MG/DL (74-106); POTASSIUM SERUM 3.3 MMOL/L (3.5-5.1); SODIUM LEVEL 142 MMOL/L (136-145); TOTAL PROTEIN 6.4 G/DL (5.7-8.2)
[2023-03-24 11:00] LABS: FREE T4 1.06 NG/DL (0.89-1.76); THYROID STIMULATING HORMONE 0.933 uIU/ML (0.55-4.78)
[2023-03-24 11:02] LABS: CPK CREATINE PHOSPHOKINASE 36 U/L (46-171); MB/CK RELATIVE INDEX 2.77 (< OR =4)
[2023-03-24 11:11] LABS: RSV AMPLIFICATION POSITIVE (NEGATIVE)
[2023-03-24 11:34] LABS: CK-MB VALUE MASS < 1.0 NG/ML (<3.6)
[2023-03-24 11:38] LABS: CPK CREATINE PHOSPHOKINASE 44 U/L (46-171); MB/CK RELATIVE INDEX 2.27 (< OR =4)
[2023-03-24] MEDS ORDERED: dexAMETHasone 20MG/5ML VIAL IV ONE (12:05)
[2023-03-24] MEDS ORDERED: ISOVUE-370 76% 100ML VIAL As Ordered ONE (12:27)
[2023-03-24] MEDS ORDERED: diphenhydrAMINE 50MG/ML VIAL IV ONE (12:30)
[2023-03-24] MEDS ORDERED: MED REC IN PROGRESS XX SCH (15:15)
[2023-03-24] MEDS ORDERED: LABETALOL 100MG/20ML VIAL IV STA (16:08)
[2023-03-24] MEDS ORDERED: ROSU40TA4 PO (16:09)
[2023-03-24] MEDS ORDERED: LABETALOL 100MG/20ML VIAL IV PRN (16:10)
[2023-03-24] MEDS ORDERED: HOME MED LIST COMPLETE! XX SCH (16:15)
[2023-03-24] MEDS: cefTRIAXone SOD 1 GM in D5W MINI-BAG PLUS 50 ML IV SCH (16:53)
[2023-03-24] MEDS ORDERED: FLUTICASONE PROP 0.05% NASAL SPRAY 16 GM (FLONASE) PRN (17:45)
[2023-03-24] MEDS ORDERED: IPRATROPIUM 0.5MG/ALBUTEROL 2.5MG INH SOL UD 3ML (DUONEB) NEB PRN (18:20)
[2023-03-24] MEDS: DOXYCYCLINE HYCLATE 100 MG in D5W MINI-BAG PLUS 100 ML IV SCH (18:21)
[2023-03-24 20:20] VITALS: BP 173/81; TEMP 97.5; O2SAT 93
[2023-03-24] MEDS: IPRATROPIUM 0.5MG/ALBUTEROL 2.5MG INH SOL UD 3ML (DUONEB) NEB SCH (21:09)
[2023-03-24] MEDS: ROSUVASTATIN 10 MG TAB (CRESTOR) PO SCH (21:13)
[2023-03-24] MEDS: CARVedilol 12.5 MG TAB PO SCH (21:14)
[2023-03-24] MEDS: lisinopriL 40MG TAB PO SCH (21:14)
[2023-03-24 23:00] VITALS: BP 133/59; TEMP 97; O2SAT 92
[2023-03-25] VITALS (7 sets, daily range): BP systolic 106–172; BP diastolic 51–82; TEMP 97.5–98.8; O2SAT 89–96
[2023-03-25] MEDS: IPRATROPIUM 0.5MG/ALBUTEROL 2.5MG INH SOL UD 3ML (DUONEB) NEB SCH ×4 (01:24→21:42)
[2023-03-25] MEDS: DOXYCYCLINE HYCLATE 100 MG in D5W MINI-BAG PLUS 100 ML IV SCH (05:58)
[2023-03-25 07:06] LABS: HEMATOCRIT 32.3 % (42.0-52.0); HEMOGLOBIN 10.4 g/dl (13.5-17.5); MEAN CORPUSCULAR HEMOGLOBIN 31.5 pg (27.0-33.0); MEAN CORPUSCULAR HGB CONC 32.2 g/dl (32.0-36.5); MEAN CORPUSCULAR VOLUME 97.9 fl (80.0-96.0); PLATELET COUNT, AUTOMATED 215 10^3/uL (150-450)
[2023-03-25 07:48] LABS: BLOOD UREA NITROGEN 23 MG/DL (9-23); CARBON DIOXIDE LEVEL 30 MMOL/L (20-31); CHLORIDE LEVEL 103 MMOL/L (98-107); CREATININE FOR GFR 1.33 MG/DL (0.70-1.30); GLOMERULAR FILTRATION RATE 55.4 (>42); GLUCOSE, FASTING 152 MG/DL (74-106); POTASSIUM SERUM 3.3 MMOL/L (3.5-5.1); PROCALCITONIN <0.04 ng/ml; SODIUM LEVEL 140 MMOL/L (136-145)
[2023-03-25] MEDS: ENOXAPARIN 40MG/0.4ML SYRINGE (J1650 PER 10MG) SC SCH ×2 (09:00→12:10)
[2023-03-25] MEDS: CARVedilol 12.5 MG TAB PO SCH ×2 (09:00→20:41)
[2023-03-25] MEDS: CLOPIDOGREL 75 MG TAB PO SCH (09:10)
[2023-03-25] MEDS ORDERED: POTASSIUM CHLORIDE 10MEQ SR TABLET PO ONE (11:35)
[2023-03-25] MEDS: CYANOCOBALAMIN 500 MCG TAB PO SCH (12:09)
[2023-03-25] MEDS: FERROUS GLUCONATE 324 MG TAB PO SCH (12:09)
[2023-03-25] MEDS: MIRALAX *UNIT DOSE* 17GM PACKET PO PRN (12:16)
[2023-03-25] MEDS: ACETAMINOPHEN TAB 650MG DOSE (2X325MG) PO PRN (12:30)
[2023-03-25] MEDS: cefTRIAXone SOD 1 GM in D5W MINI-BAG PLUS 50 ML IV SCH (17:32)
[2023-03-25] MEDS: DOXYCYCLINE HYCLATE 100MG TABLET PO SCH (20:37)
[2023-03-25] MEDS: ROSUVASTATIN 10 MG TAB (CRESTOR) PO SCH (20:38)
[2023-03-25] MEDS: lisinopriL 40MG TAB PO SCH (20:41)
[2023-03-26] VITALS (11 sets, daily range): BP systolic 107–143; BP diastolic 48–91; TEMP 97.3–98.2; O2SAT 89–95
[2023-03-26] MEDS: IPRATROPIUM 0.5MG/ALBUTEROL 2.5MG INH SOL UD 3ML (DUONEB) NEB SCH ×4 (01:56→20:38)
[2023-03-26 05:46] LABS: BASO % 0.3 % (0.0-1.0); EOS % 0.1 % (0.0-3.0); HEMATOCRIT 30.1 % (42.0-52.0); HEMOGLOBIN 9.6 g/dl (13.5-17.5); LYMPH # 1.2 10^3/uL (1.5-5.0); LYMPH % 10.4 % (24.0-44.0); MEAN CORPUSCULAR HEMOGLOBIN 31.6 pg (27.0-33.0); MEAN CORPUSCULAR HGB CONC 31.9 g/dl (32.0-36.5); MONO # 1.3 10^3/uL (0.0-0.8); NEUTROPHILS # 8.9 10^3/uL (1.5-8.5); NEUTROPHILS % 77.8 % (36.0-66.0); PLATELET COUNT, AUTOMATED 226 10^3/uL (150-450); RED BLOOD COUNT 3.04 10^6/uL (4.30-6.10); WHITE BLOOD COUNT 11.5 10^3/uL (4.0-10.0)
[2023-03-26 06:12] LABS: CALCIUM LEVEL 8.6 MG/DL (8.3-10.6); CREATININE FOR GFR 1.52 MG/DL (0.70-1.30); GLOMERULAR FILTRATION RATE 47.5 (>42); POTASSIUM SERUM 3.3 MMOL/L (3.5-5.1)
[2023-03-26] MEDS ORDERED: LR 1,000 ML IV ONE (07:45)
[2023-03-26] MEDS: ENOXAPARIN 40MG/0.4ML SYRINGE (J1650 PER 10MG) SC SCH (08:10)
[2023-03-26] MEDS: CLOPIDOGREL 75 MG TAB PO SCH (08:10)
[2023-03-26] MEDS: CYANOCOBALAMIN 500 MCG TAB PO SCH (08:10)
[2023-03-26] MEDS: DOXYCYCLINE HYCLATE 100MG TABLET PO SCH ×2 (08:10→21:38)
[2023-03-26] MEDS: POTASSIUM CHLORIDE 10MEQ SR TABLET PO SCH ×2 (08:10→21:37)
[2023-03-26] MEDS: FERROUS GLUCONATE 324 MG TAB PO SCH (08:10)
[2023-03-26] MEDS: CARVedilol 12.5 MG TAB PO SCH ×2 (08:13→21:39)
[2023-03-26] MEDS: AUGMENTIN 875 MG TAB PO SCH (17:19)
[2023-03-26] MEDS: lisinopriL 40MG TAB PO SCH (21:39)
[2023-03-26] MEDS: ROSUVASTATIN 10 MG TAB (CRESTOR) PO SCH (21:39)
[2023-03-27] MEDS: IPRATROPIUM 0.5MG/ALBUTEROL 2.5MG INH SOL UD 3ML (DUONEB) NEB SCH ×4 (01:21→19:44)
[2023-03-27 02:00] VITALS: BP 143/61; TEMP 97.9; O2SAT 93
[2023-03-27 06:00] VITALS: BP 136/94; TEMP 97.7; O2SAT 93
[2023-03-27 06:21] LABS: BASO % 0.5 % (0.0-1.0); EOS # 0.1 10^3/uL (0.0-0.5); HEMATOCRIT 30.8 % (42.0-52.0); HEMOGLOBIN 9.7 g/dl (13.5-17.5); LYMPH # 1.2 10^3/uL (1.5-5.0); LYMPH % 15.2 % (24.0-44.0); MEAN CORPUSCULAR HEMOGLOBIN 31.3 pg (27.0-33.0); MEAN CORPUSCULAR HGB CONC 31.5 g/dl (32.0-36.5); MEAN CORPUSCULAR VOLUME 99.4 fl (80.0-96.0); MONO # 1.1 10^3/uL (0.0-0.8); MONO % 13.9 % (2.0-8.0); NEUTROPHILS # 5.3 10^3/uL (1.5-8.5); NEUTROPHILS % 69.1 % (36.0-66.0); PLATELET COUNT, AUTOMATED 226 10^3/uL (150-450); WHITE BLOOD COUNT 7.6 10^3/uL (4.0-10.0)
[2023-03-27] MEDS: AUGMENTIN 875 MG TAB PO SCH (06:26)
[2023-03-27 06:41] LABS: CALCIUM LEVEL 8.6 MG/DL (8.3-10.6); CREATININE FOR GFR 1.3 MG/DL (0.70-1.30); GLOMERULAR FILTRATION RATE 56.8 (>42); POTASSIUM SERUM 3.8 MMOL/L (3.5-5.1)
[2023-03-27] MEDS: ACETAMINOPHEN TAB 650MG DOSE (2X325MG) PO PRN ×2 (07:35→14:29)
[2023-03-27] MEDS ORDERED: AMOXICILLIN SUSP 250MG/5ML 100ML BOTTLE (FOR INPATIENT ORDERS) PO SCH (09:00)
[2023-03-27] MEDS: CYANOCOBALAMIN 500 MCG TAB PO SCH (09:00)
[2023-03-27 09:19] LABS: PERCENT SATURATION 4.5 % (19.7-50.0)
[2023-03-27 09:21] LABS: FOLATE 12.2 NG/ML (>5.4)
[2023-03-27 09:22] LABS: FERRITIN 19.5 NG/ML (10.5-307.3)
[2023-03-27] MEDS: LevoFLOXacin 750 MG TABLET PO SCH (09:49)
[2023-03-27] MEDS: ENOXAPARIN 40MG/0.4ML SYRINGE (J1650 PER 10MG) SC SCH (09:50)
[2023-03-27] MEDS: CLOPIDOGREL 75 MG TAB PO SCH (09:50)
[2023-03-27] MEDS: CARVedilol 12.5 MG TAB PO SCH ×2 (09:53→22:04)
[2023-03-27] MEDS: FLUTICASONE PROP 0.05% NASAL SPRAY 16 GM (FLONASE) SCH ×2 (10:05→22:04)
[2023-03-27] MEDS: SODIUM CHLORIDE NASAL 0.65% SPRAY BTL (OCEAN) SCH ×2 (10:05→22:04)
[2023-03-27] MEDS ORDERED: FERRIC CARBOXYMALTOSE INJ 750 MG, VIAL MATE ADAPTER 1 EACH in NS 250 ML IV ONE (10:15)
[2023-03-27] MEDS ORDERED: Sodium Chloride Nasal Spray (10:17)
[2023-03-27] MEDS ORDERED: LEVO1TAB40 PO (10:17)
[2023-03-27] MEDS: FERROUS GLUCONATE 324 MG TAB PO SCH (11:25)
[2023-03-27 14:00] VITALS: BP 138/63; TEMP 97.7; O2SAT 90
[2023-03-27 19:07] LABS: CHLAMYDIA PNEUMONIAE IgG <1:16 (Neg:<1:16); CHLAMYDIA PNEUMONIAE IgM <1:10 (Neg:<1:10)
[2023-03-27 19:58] VITALS: O2SAT 92
[2023-03-27 22:00] VITALS: BP 162/72; TEMP 97; TEMP 97.7; O2SAT 90
[2023-03-27] MEDS: lisinopriL 40MG TAB PO SCH (22:03)
[2023-03-27] MEDS: ROSUVASTATIN 10 MG TAB (CRESTOR) PO SCH (22:03)
[2023-03-28] VITALS (8 sets, daily range): BP systolic 110–146; BP diastolic 53–80; TEMP 97.2–97.7; O2SAT 90–94
[2023-03-28] MEDS: IPRATROPIUM 0.5MG/ALBUTEROL 2.5MG INH SOL UD 3ML (DUONEB) NEB SCH ×2 (01:53→08:58)
[2023-03-28 06:07] LABS: BASO % 0.5 % (0.0-1.0); EOS # 0.1 10^3/uL (0.0-0.5); HEMATOCRIT 30.2 % (42.0-52.0); HEMOGLOBIN 9.3 g/dl (13.5-17.5); LYMPH # 0.9 10^3/uL (1.5-5.0); LYMPH % 15.2 % (24.0-44.0); MEAN CORPUSCULAR HEMOGLOBIN 30.7 pg (27.0-33.0); MEAN CORPUSCULAR HGB CONC 30.8 g/dl (32.0-36.5); MEAN CORPUSCULAR VOLUME 99.7 fl (80.0-96.0); MONO # 0.9 10^3/uL (0.0-0.8); MONO % 14.7 % (2.0-8.0); NEUTROPHILS # 4.1 10^3/uL (1.5-8.5); NEUTROPHILS % 67.1 % (36.0-66.0); PLATELET COUNT, AUTOMATED 220 10^3/uL (150-450); RED BLOOD COUNT 3.03 10^6/uL (4.30-6.10); WHITE BLOOD COUNT 6.1 10^3/uL (4.0-10.0)
[2023-03-28 06:27] LABS: CALCIUM LEVEL 8.8 MG/DL (8.3-10.6); CREATININE FOR GFR 1.27 MG/DL (0.70-1.30); GLOMERULAR FILTRATION RATE 58.4 (>42); POTASSIUM SERUM 3.6 MMOL/L (3.5-5.1)
[2023-03-28] MEDS: LevoFLOXacin 750 MG TABLET PO SCH (06:30)
[2023-03-28] MEDS: FERROUS GLUCONATE 324 MG TAB PO SCH (09:46)
[2023-03-28] MEDS: CLOPIDOGREL 75 MG TAB PO SCH (09:46)
[2023-03-28] MEDS: ENOXAPARIN 40MG/0.4ML SYRINGE (J1650 PER 10MG) SC SCH (09:47)
[2023-03-28] MEDS: SODIUM CHLORIDE NASAL 0.65% SPRAY BTL (OCEAN) SCH ×2 (09:47→20:30)
[2023-03-28] MEDS: FLUTICASONE PROP 0.05% NASAL SPRAY 16 GM (FLONASE) SCH ×2 (09:47→20:30)
[2023-03-28] MEDS: CYANOCOBALAMIN 500 MCG TAB PO SCH (09:47)
[2023-03-28] MEDS: CARVedilol 12.5 MG TAB PO SCH ×2 (09:50→20:36)
[2023-03-28] MEDS ORDERED: COMBAER6 INH (10:32)
[2023-03-28] MEDS ORDERED: PROBCAP14 PO (10:33)
[2023-03-28] MEDS: TIOTROPIUM INHALER/CAPSULE (SPIRIVA) INH SCH (13:31)
[2023-03-28] MEDS: ALBUTEROL SULFATE 2.5MG/0.5ML INH NEB SOLN NEB SCH ×2 (13:31→20:02)
[2023-03-28] MEDS: SODIUM CHLORIDE HYPERTONIC 3% 4ML NEB SOL INH SCH ×2 (13:32→20:00)
[2023-03-28] MEDS: ACETAMINOPHEN TAB 650MG DOSE (2X325MG) PO PRN ×2 (14:51→20:49)
[2023-03-28] MEDS: POTASSIUM CHLORIDE 10MEQ SR TABLET PO SCH ×2 (14:51→20:37)
[2023-03-28] MEDS: lisinopriL 40MG TAB PO SCH (20:29)
[2023-03-28] MEDS: ROSUVASTATIN 10 MG TAB (CRESTOR) PO SCH (20:37)
[2023-03-29] MEDS: ALBUTEROL SULFATE 2.5MG/0.5ML INH NEB SOLN NEB SCH ×2 (01:24→08:25)
[2023-03-29] MEDS: SODIUM CHLORIDE HYPERTONIC 3% 4ML NEB SOL INH SCH ×3 (01:24→13:21)
[2023-03-29 01:43] VITALS: BP 102/51; TEMP 97.3; O2SAT 94
[2023-03-29] MEDS: LevoFLOXacin 750 MG TABLET PO SCH (05:53)
[2023-03-29 05:57] LABS: BASO % 0.5 % (0.0-1.0); EOS # 0.1 10^3/uL (0.0-0.5); EOS % 2.2 % (0.0-3.0); HEMOGLOBIN 9.2 g/dl (13.5-17.5); LYMPH # 0.9 10^3/uL (1.5-5.0); LYMPH % 15.2 % (24.0-44.0); MEAN CORPUSCULAR HEMOGLOBIN 31.5 pg (27.0-33.0); MEAN CORPUSCULAR HGB CONC 31.7 g/dl (32.0-36.5); MEAN CORPUSCULAR VOLUME 99.3 fl (80.0-96.0); MONO # 0.9 10^3/uL (0.0-0.8); MONO % 15.1 % (2.0-8.0); NEUTROPHILS # 3.9 10^3/uL (1.5-8.5); NEUTROPHILS % 66.5 % (36.0-66.0); PLATELET COUNT, AUTOMATED 229 10^3/uL (150-450); RED BLOOD COUNT 2.92 10^6/uL (4.30-6.10); WHITE BLOOD COUNT 5.9 10^3/uL (4.0-10.0)
[2023-03-29 06:00] VITALS: BP 119/60; TEMP 97.7; O2SAT 91
[2023-03-29 06:25] LABS: CALCIUM LEVEL 8.6 MG/DL (8.3-10.6); CREATININE FOR GFR 1.45 MG/DL (0.70-1.30); GLOMERULAR FILTRATION RATE 50.1 (>42); POTASSIUM SERUM 3.6 MMOL/L (3.5-5.1)
[2023-03-29] MEDS: MIRALAX *UNIT DOSE* 17GM PACKET PO PRN (06:30)
[2023-03-29] MEDS: TIOTROPIUM INHALER/CAPSULE (SPIRIVA) INH SCH (08:25)
[2023-03-29] MEDS: CLOPIDOGREL 75 MG TAB PO SCH (09:39)
[2023-03-29] MEDS: POTASSIUM CHLORIDE 10MEQ SR TABLET PO SCH (09:39)
[2023-03-29] MEDS: CYANOCOBALAMIN 500 MCG TAB PO SCH (09:40)
[2023-03-29 09:44] VITALS: BP 119/63
[2023-03-29] MEDS: ENOXAPARIN 40MG/0.4ML SYRINGE (J1650 PER 10MG) SC SCH (09:44)
[2023-03-29] MEDS: CARVedilol 12.5 MG TAB PO SCH (09:44)
[2023-03-29] MEDS: FERROUS GLUCONATE 324 MG TAB PO SCH (09:44)
[2023-03-29] MEDS: SODIUM CHLORIDE NASAL 0.65% SPRAY BTL (OCEAN) SCH (09:46)
[2023-03-29] MEDS: FLUTICASONE PROP 0.05% NASAL SPRAY 16 GM (FLONASE) SCH (09:46)
[2023-03-29 09:58] VITALS: BP 146/70; TEMP 98.1; O2SAT 92
[2023-03-29] MEDS ORDERED: ALBUTEROL 90 MCG/ACT 8GM HFA INHALER INH SCH (12:00)
== END 2023-03-29 15:17 | disposition home or self-care (01) | DRG 193 ==
LOC: M ED 09:02 → M ED INP 16:10 → ENRESERV 16:54 → M PCU 20:20 → M MS5PR 03-25 17:37
PROVIDERS: ADMIT Internal Medicine; ATTEND Internal Medicine
DX: J12.1 Respiratory syncytial virus pneumonia (principal); J96.01 Acute respiratory failure with hypoxia; J44.0 Chronic obstructive pulmonary disease with (acute) lower respiratory infection; I16.9 Hypertensive crisis, unspecified; I48.0 Paroxysmal atrial fibrillation; I25.10 Atherosclerotic heart disease of native coronary artery without angina pectoris; J20.5 Acute bronchitis due to respiratory syncytial virus; I12.9 Hypertensive chronic kidney disease with stage 1 through stage 4 chronic kidney disease, or unspecified chronic kidney disease; N18.30 Chronic kidney disease, stage 3 unspecified; E78.5 Hyperlipidemia, unspecified; K44.9 Diaphragmatic hernia without obstruction or gangrene; C61 Malignant neoplasm of prostate; I27.20 Pulmonary hypertension, unspecified; R73.03 Prediabetes; K21.9 Gastro-esophageal reflux disease without esophagitis; D50.9 Iron deficiency anemia, unspecified; M16.12 Unilateral primary osteoarthritis, left hip; K59.00 Constipation, unspecified; E87.6 Hypokalemia; Z87.891 Personal history of nicotine dependence; I25.2 Old myocardial infarction; Z79.899 Other long term (current) drug therapy; Z88.8 Allergy status to other drugs, medicaments and biological substances; Z91.041 Radiographic dye allergy status; Z20.822 Contact with and (suspected) exposure to COVID-19; Z86.718 Personal history of other venous thrombosis and embolism

== ENCOUNTER → 2023-06-09 | Outpatient (REF) | payer MEDICARE, OTHER ==
[~2023-06-09] MED LIST changes: +COMBAER6 INH; +FERR324T21 PO; +LEVO1TAB40 PO; +POTA-141 FT; +PROBCAP14 PO; +Sodium Chloride Nasal Spray
== END ==
LOC: M SFHCADAM 11:51
PROVIDERS: ATTEND Family Medicine
DX: R30.0 Dysuria (principal)

== ENCOUNTER → 2023-06-10 | Outpatient (REF) | payer MEDICARE, OTHER ==
[2023-06-10 14:33] LABS: BASO # 0.1 10^3/uL (0.0-0.2); BASO % 1.1 % (0.0-1.0); EOS # 0.4 10^3/uL (0.0-0.5); EOS % 6.8 % (0.0-3.0); HEMATOCRIT 36.6 % (42.0-52.0); HEMOGLOBIN 11.4 g/dl (13.5-17.5); LYMPH % 18.7 % (24.0-44.0); MEAN CORPUSCULAR HEMOGLOBIN 31.3 pg (27.0-33.0); MEAN CORPUSCULAR HGB CONC 31.1 g/dl (32.0-36.5); MEAN CORPUSCULAR VOLUME 100.5 fl (80.0-96.0); MONO # 0.8 10^3/uL (0.0-0.8); MONO % 14.2 % (2.0-8.0); NEUTROPHILS # 3.3 10^3/uL (1.5-8.5); NEUTROPHILS % 58.7 % (36.0-66.0); PLATELET COUNT, AUTOMATED 244 10^3/uL (150-450); RED BLOOD COUNT 3.64 10^6/uL (4.30-6.10); WHITE BLOOD COUNT 5.6 10^3/uL (4.0-10.0)
[2023-06-10 14:43] LABS: ALBUMIN 3.1 G/DL (3.2-5.2); ALKALINE PHOSPHATASE 54 U/L (46-116); ALT/SGPT 31 U/L (7.0-40); AST/SGOT 24 U/L (<34); BILIRUBIN,TOTAL 0.2 MG/DL (0.3-1.2); BLOOD UREA NITROGEN 30 MG/DL (9-23); CALCIUM LEVEL 9.4 MG/DL (8.3-10.6); CARBON DIOXIDE LEVEL 32 MMOL/L (20-31); CHLORIDE LEVEL 109 MMOL/L (98-107); CREATININE FOR GFR 1.38 MG/DL (0.70-1.30); GLOMERULAR FILTRATION RATE 52.9 (>42); GLUCOSE, FASTING 116 MG/DL (74-106); POTASSIUM SERUM 4.6 MMOL/L (3.5-5.1); SODIUM LEVEL 140 MMOL/L (136-145); TOTAL PROTEIN 6.6 G/DL (5.7-8.2)
== END ==
LOC: M SFHCADAM 10:42
PROVIDERS: ATTEND Family Medicine
DX: N39.0 Urinary tract infection, site not specified (principal); R06.09 Other forms of dyspnea; R30.0 Dysuria

== ENCOUNTER → 2023-06-10 | Outpatient (CLI) | payer MEDICARE, OTHER | LOC: M ADAMS 10:46 | PROVIDERS: ATTEND Family Medicine | DX: M47.816 Spondylosis without myelopathy or radiculopathy, lumbar region (principal); J44.9 Chronic obstructive pulmonary disease, unspecified; R91.8 Other nonspecific abnormal finding of lung field; R06.09 Other forms of dyspnea; M16.12 Unilateral primary osteoarthritis, left hip; M54.50 Low back pain, unspecified; N39.0 Urinary tract infection, site not specified; R30.0 Dysuria ==

== ENCOUNTER → 2023-08-15 | Outpatient (REF) | payer MEDICARE, BC ==
[~2023-08-15] MED LIST changes: -ROSU40TA4 PO; +ROSU40TA63 PO
[2023-08-18 23:07] LABS: PSA TOTAL 11.4 ng/mL (0.0-4.0)
== END ==
LOC: M LABDRWAD 17:11
PROVIDERS: ATTEND Urology
DX: C61 Malignant neoplasm of prostate (principal)

== ENCOUNTER → 2023-08-15 | Outpatient (REF) | payer MEDICARE, BC ==
[2023-08-15 17:27] LABS: BILIRUBIN,TOTAL 0.4 MG/DL (0.3-1.2); CALCIUM LEVEL 9.7 MG/DL (8.3-10.6); CREATININE FOR GFR 1.31 MG/DL (0.70-1.30); GLOMERULAR FILTRATION RATE 56.2 (>42); PERCENT SATURATION 23.3 % (19.7-50.0); POTASSIUM SERUM 5.4 MMOL/L (3.5-5.1); TOTAL PROTEIN 6.8 G/DL (5.7-8.2)
[2023-08-15 17:34] LABS: BASO % 0.6 % (0.0-1.0); EOS # 0.2 10^3/uL (0.0-0.5); EOS % 2.3 % (0.0-3.0); HEMATOCRIT 39.5 % (42.0-52.0); HEMOGLOBIN 12.3 g/dl (13.5-17.5); LYMPH # 1.2 10^3/uL (1.5-5.0); LYMPH % 17.4 % (24.0-44.0); MEAN CORPUSCULAR HEMOGLOBIN 30.6 pg (27.0-33.0); MEAN CORPUSCULAR HGB CONC 31.1 g/dl (32.0-36.5); MEAN CORPUSCULAR VOLUME 98.3 fl (80.0-96.0); MONO # 0.7 10^3/uL (0.0-0.8); MONO % 9.2 % (2.0-8.0); NEUTROPHILS # 4.9 10^3/uL (1.5-8.5); NEUTROPHILS % 69.6 % (36.0-66.0); PLATELET COUNT, AUTOMATED 264 10^3/uL (150-450); RED BLOOD COUNT 4.02 10^6/uL (4.30-6.10)
== END ==
LOC: M SFHCADAM 13:41
PROVIDERS: ATTEND Family Medicine
DX: Z86.2 Personal history of diseases of the blood and blood-forming organs and certain disorders involving the immune mechanism (principal); Z86.39 Personal history of other endocrine, nutritional and metabolic disease; C61 Malignant neoplasm of prostate

== ENCOUNTER → 2023-09-10 | Outpatient (REF) | payer MEDICARE, BC | LOC: M SFHCADAM 11:46 | PROVIDERS: ATTEND Family Medicine | DX: R30.0 Dysuria (principal) ==

== ENCOUNTER → 2023-09-10 | Outpatient (REF) | payer MEDICARE, BC | LOC: M SFHCADAM 17:15 | PROVIDERS: ATTEND Family Medicine | DX: R30.0 Dysuria (principal) ==

== ENCOUNTER → 2023-09-12 | Outpatient (CLI) | payer MEDICARE, BC | LOC: M RAD 10:58 | PROVIDERS: ATTEND Family Medicine | DX: I71.40 Abdominal aortic aneurysm, without rupture, unspecified (principal) ==

== ENCOUNTER → 2023-10-02 | Outpatient (REF) | payer MEDICARE, BC ==
[2023-10-02 18:07] LABS: BASO # 0.1 10^3/uL (0.0-0.2); BASO % 0.7 % (0.0-1.0); EOS # 0.1 10^3/uL (0.0-0.5); EOS % 1.9 % (0.0-3.0); HEMOGLOBIN 12.1 g/dl (13.5-17.5); MEAN CORPUSCULAR HEMOGLOBIN 31.5 pg (27.0-33.0); MEAN CORPUSCULAR VOLUME 101.6 fl (80.0-96.0); MONO # 0.9 10^3/uL (0.0-0.8); MONO % 11.9 % (2.0-8.0); NEUTROPHILS # 5.3 10^3/uL (1.5-8.5); NEUTROPHILS % 72.1 % (36.0-66.0); PLATELET COUNT, AUTOMATED 202 10^3/uL (150-450); RED BLOOD COUNT 3.84 10^6/uL (4.30-6.10); WHITE BLOOD COUNT 7.4 10^3/uL (4.0-10.0)
[2023-10-02 18:54] LABS: ALBUMIN 3.3 G/DL (3.2-5.2); BLOOD UREA NITROGEN 23 MG/DL (9-23); CALCIUM LEVEL 9.4 MG/DL (8.3-10.6); CARBON DIOXIDE LEVEL 32 MMOL/L (20-31); CHLORIDE LEVEL 105 MMOL/L (98-107); CREATININE FOR GFR 1.11 MG/DL (0.70-1.30); GLOMERULAR FILTRATION RATE > 60.0 (>42); GLUCOSE, FASTING 97 MG/DL (74-106); PHOSPHORUS LEVEL 2.7 MG/DL (2.4-5.1); POTASSIUM SERUM 3.6 MMOL/L (3.5-5.1); SODIUM LEVEL 140 MMOL/L (136-145)
== END ==
LOC: M LABDRWAD 17:10
PROVIDERS: ATTEND Internal Medicine Cardiovascular Disease
DX: R06.02 Shortness of breath (principal); I50.9 Heart failure, unspecified; I11.0 Hypertensive heart disease with heart failure; E87.5 Hyperkalemia; I08.0 Rheumatic disorders of both mitral and aortic valves

== ENCOUNTER → 2023-10-02 | Outpatient (REF) | payer MEDICARE, BC ==
[2023-10-02 18:37] LABS: BLOOD UREA NITROGEN 23 MG/DL (9-23); CALCIUM LEVEL 9.4 MG/DL (8.3-10.6); CARBON DIOXIDE LEVEL 32 MMOL/L (20-31); CHLORIDE LEVEL 105 MMOL/L (98-107); CREATININE FOR GFR 1.11 MG/DL (0.70-1.30); GLOMERULAR FILTRATION RATE > 60.0 (>42); GLUCOSE, FASTING 99 MG/DL (74-106); POTASSIUM SERUM 3.6 MMOL/L (3.5-5.1); SODIUM LEVEL 142 MMOL/L (136-145)
== END ==
LOC: M SFHCADAM 11:30
PROVIDERS: ATTEND Family Medicine
DX: E87.5 Hyperkalemia (principal)

== ENCOUNTER → 2023-10-15 | Outpatient (REF) | payer MEDICARE, OTHER ==
[~2023-10-15] MED LIST changes: +ALFU10TA23 PO; -ALFU10TA3 PO
[2023-10-15 18:50] LABS: BASO # 0.1 10^3/uL (0.0-0.2); BASO % 0.4 % (0.0-1.0); EOS % 0.3 % (0.0-3.0); HEMATOCRIT 36.5 % (42.0-52.0); HEMOGLOBIN 11.1 g/dl (13.5-17.5); LYMPH # 1.1 10^3/uL (1.5-5.0); MEAN CORPUSCULAR HEMOGLOBIN 30.3 pg (27.0-33.0); MEAN CORPUSCULAR HGB CONC 30.4 g/dl (32.0-36.5); MEAN CORPUSCULAR VOLUME 99.7 fl (80.0-96.0); MONO # 1.3 10^3/uL (0.0-0.8); MONO % 9.6 % (2.0-8.0); NEUTROPHILS # 11.3 10^3/uL (1.5-8.5); NEUTROPHILS % 81.1 % (36.0-66.0); PLATELET COUNT, AUTOMATED 297 10^3/uL (150-450); RED BLOOD COUNT 3.66 10^6/uL (4.30-6.10); WHITE BLOOD COUNT 13.9 10^3/uL (4.0-10.0)
[2023-10-15 18:53] LABS: ALBUMIN 2.8 G/DL (3.2-5.2); CALCIUM LEVEL 9.1 MG/DL (8.3-10.6); CREATININE FOR GFR 1.35 MG/DL (0.70-1.30); GLOMERULAR FILTRATION RATE 54.3 (>42); MAGNESIUM LEVEL 1.9 MG/DL (1.8-2.4); PHOSPHORUS LEVEL 2.6 MG/DL (2.4-5.1); POTASSIUM SERUM 3.4 MMOL/L (3.5-5.1)
== END ==
LOC: M LABDRWAD 17:20
PROVIDERS: ATTEND Internal Medicine Cardiovascular Disease
DX: I50.9 Heart failure, unspecified (principal); R06.02 Shortness of breath; I11.0 Hypertensive heart disease with heart failure; I08.0 Rheumatic disorders of both mitral and aortic valves

== ENCOUNTER 2023-12-27 00:02 | Inpatient (IN) | payer MEDICARE, BC ==
[2023-12-27] VITALS (23 sets, daily range): BP systolic 87–178; BP diastolic 45–84; TEMP 96.8–97.8; O2SAT 80–100
[~2023-12-27] VITALS: Ht 182.9 cm; Wt 92.1 kg
[~2023-12-27 00:02] MED LIST changes: +ADV250INH INH; +CARV12.5 PO; +FLOM0.4C39 PO; +LEVO1TAB38 PO; +MIRA33506 PO; +PERCOCET PO; +POTA20PW PO; -ROSU40TA63 PO; +ROSU40TA81 PO; +SENN1TAB85 PO; +SPIR-10 PO; +TIOT18INH INH; +TORS10TA3 PO
[2023-12-27] MEDS ORDERED: IPRATROPIUM 0.5MG/ALBUTEROL 2.5MG INH SOL UD 3ML (DUONEB) NEB PRN (00:20)
[2023-12-27] MEDS ORDERED: IPRATROPIUM 0.5MG/ALBUTEROL 2.5MG INH SOL UD 3ML (DUONEB) NEB ONE (00:20)
[2023-12-27 00:29] LABS: VENOUS BASE EXCESS 0.6 (-2.0-2.0); VENOUS HCO3 25.9 MMOL/L (23.0-27.0); VENOUS O2 SATURATION 92.8 % (60.0-80.0); VENOUS PARTIAL PRESSURE CO2 44.3 mmHg (38.0-50.0); VENOUS PARTIAL PRESSURE O2 73.4 mmHg (30.0-50.0); VENOUS PH 7.384 UNITS (7.330-7.430); VENOUS STANDARD HCO3 24.9 MMOL/L; VENOUS TOTAL CO2 27.2 MMOL/L (24.0-28.0)
[2023-12-27] MEDS: LEVALBUTEROL 1.25MG 0.5ML CONCENTRATE NEB NEB ONE ×2 (00:37)
[2023-12-27 00:42] LABS: HEMATOCRIT 32.2 % (42.0-52.0); HEMOGLOBIN 10.2 g/dl (13.5-17.5); MEAN CORPUSCULAR HEMOGLOBIN 28.2 pg (27.0-33.0); MEAN CORPUSCULAR HGB CONC 31.7 g/dl (32.0-36.5); PLATELET COUNT, AUTOMATED 331 10^3/uL (150-450); RED BLOOD COUNT 3.62 10^6/uL (4.30-6.10); WHITE BLOOD COUNT 16.4 10^3/uL (4.0-10.0)
[2023-12-27 00:59] LABS: CK-MB VALUE MASS < 1.0 NG/ML (<3.6)
[2023-12-27 01:02] LABS: ALBUMIN 1.2 G/DL (3.2-5.2); ALKALINE PHOSPHATASE 88 U/L (46-116); ALT/SGPT 44 U/L (7.0-40); AST/SGOT 31 U/L (<34); BILIRUBIN,DIRECT 0.2 MG/DL (<0.4); BILIRUBIN,TOTAL 0.3 MG/DL (0.3-1.2); BLOOD UREA NITROGEN 33 MG/DL (9-23); CALCIUM LEVEL 8.1 MG/DL (8.3-10.6); CARBON DIOXIDE LEVEL 29 MMOL/L (20-31); CHLORIDE LEVEL 101 MMOL/L (98-107); CREATININE FOR GFR 1.08 MG/DL (0.70-1.30); GLOMERULAR FILTRATION RATE > 60.0 (>42); GLUCOSE, FASTING 138 MG/DL (74-106); POTASSIUM SERUM 3.8 MMOL/L (3.5-5.1); SODIUM LEVEL 135 MMOL/L (136-145)
[2023-12-27 01:03] LABS: THYROID STIMULATING HORMONE 0.802 uIU/ML (0.55-4.78); THYROXINE (T4) 3.3 UG/DL (4.5-10.9)
[2023-12-27 01:13] LABS: LYMPHOCYTES 4 % (16-44); MONOCYTES 4 % (0-5); NEUTROPHILS 91 % (28-66)
[2023-12-27 01:14] LABS: ANISOCYTOSIS 1+; HYPOCHROMASIA 1+; PLATELET CLUMPS SMALL AMT; PLATELET ESTIMATE NORMAL (NORMAL)
[2023-12-27 01:18] LABS: CPK CREATINE PHOSPHOKINASE 24 U/L (46-171); MB/CK RELATIVE INDEX 4.16 (< OR =4)
[2023-12-27] MEDS ORDERED: ISOVUE-370 76% 100ML VIAL As Ordered ONE (01:39)
[2023-12-27] MEDS: NS 2,100 ML in IV 1 EA IV ONE (01:42)
[2023-12-27] MEDS: AZITHROMYCIN INJ 500 MG, VIAL MATE ADAPTER 1 EACH in NS 250 ML IV ONE (01:42)
[2023-12-27] MEDS: diphenhydrAMINE 50MG/ML VIAL IV STA (01:46)
[2023-12-27] MEDS: FAMOTIDINE 20MG/2ML VIAL IVP ONE (01:46)
[2023-12-27 02:03] LABS: CK-MB VALUE MASS < 1.0 NG/ML (<3.6)
[2023-12-27 02:04] LABS: CPK CREATINE PHOSPHOKINASE < 15 U/L (46-171)
[2023-12-27] MEDS ORDERED: TAMS1CAP17 PO (03:18)
[2023-12-27] MEDS ORDERED: ALBU8.5H INH (03:23)
[2023-12-27] MEDS ORDERED: IBUP200C28 PO (03:23)
[2023-12-27] MEDS ORDERED: PRED20TA PO (03:23)
[2023-12-27] MEDS ORDERED: IPRA0.00 PO (03:32)
[2023-12-27] MEDS ORDERED: LISI40TA4 PO (03:32)
[2023-12-27] MEDS ORDERED: HOME MED LIST COMPLETE! XX SCH (03:35)
[2023-12-27] MEDS ORDERED: FLUT1BLS8 INH (03:37)
[2023-12-27] MEDS: cefTRIAXone SOD 1 GM in D5W MINI-BAG PLUS 50 ML IV ONE (03:51)
[2023-12-27] MEDS ORDERED: DEXTROSE 50% 50ML SYRINGE IV PRN (04:40)
[2023-12-27] MEDS ORDERED: VANCOMYCIN HCL IV SCH (04:40)
[2023-12-27] MEDS ORDERED: FLUID PLACE HOLDER IV SCH (04:40)
[2023-12-27] MEDS ORDERED: ACETAMINOPHEN TAB 650MG DOSE (2X325MG) PO PRN (04:40)
[2023-12-27] MEDS ORDERED: GLUCOSE 4 GM CHEW PO PRN (04:40)
[2023-12-27] MEDS ORDERED: MAALOX 30 ML SUSP *UDC PO PRN (04:40)
[2023-12-27] MEDS ORDERED: ALBUTEROL 90 MCG/ACT 8GM HFA INHALER INH PRN (04:40)
[2023-12-27] MEDS ORDERED: GLUCAGON INJ 1MG VIAL SC PRN (04:40)
[2023-12-27] MEDS ORDERED: VANCOMYCIN HCL 1,880 MG in IV FLUID PLACE HOLDER 1 EA IV ONE (04:40)
[2023-12-27] MEDS: methylPREDNISolone 125MG 2ML VIAL IV SCH (06:01)
[2023-12-27] MEDS: CEFEPIME HCL 2 GM in D5W MINI-BAG PLUS 50 ML IV SCH ×2 (06:01→13:08)
[2023-12-27] MEDS: VANCOMYCIN HCL 1,000 MG, VIAL MATE ADAPTER 1 EACH in D5W 250 ML IV ONE (06:01)
[2023-12-27 06:45] LABS: VENOUS BASE EXCESS -1.2 (-2.0-2.0); VENOUS HCO3 24.1 MMOL/L (23.0-27.0); VENOUS PARTIAL PRESSURE CO2 42.6 mmHg (38.0-50.0); VENOUS PARTIAL PRESSURE O2 110.9 mmHg (30.0-50.0); VENOUS STANDARD HCO3 23.5 MMOL/L; VENOUS TOTAL CO2 25.4 MMOL/L (24.0-28.0)
[2023-12-27 07:14] LABS: INR 1.77; PARTIAL THROMBOPLASTIN TIME 37.5 SECONDS (24.8-34.2)
[2023-12-27 07:32] LABS: C REACTIVE PROTEIN QUANTITATIV 24.9 MG/DL (<1.0); MAGNESIUM LEVEL 2.1 MG/DL (1.8-2.4)
[2023-12-27] MEDS: VANCOMYCIN HCL 750 MG, VIAL MATE ADAPTER 1 EACH in D5W 250 ML IV ONE (07:32)
[2023-12-27] MEDS: IPRATROPIUM 0.5MG/ALBUTEROL 2.5MG INH SOL UD 3ML (DUONEB) NEB SCH (07:48)
[2023-12-27] MEDS ORDERED: VILANTEROL INH SCH (08:00)
[2023-12-27] MEDS ORDERED: UMECLIDINIUM INH SCH (08:00)
[2023-12-27] MEDS ORDERED: FLUTICASONE FUROATE INH SCH (08:00)
[2023-12-27] MEDS: CARVedilol 12.5 MG TAB PO SCH (08:17)
[2023-12-27] MEDS: CYANOCOBALAMIN 500 MCG TAB PO SCH (08:18)
[2023-12-27] MEDS: lisinopriL 40MG TAB PO SCH (08:18)
[2023-12-27] MEDS: TAMSULOSIN 0.4 MG CAP PO SCH (08:18)
[2023-12-27] MEDS: PANTOPRAZOLE 40MG VIAL IV SCH (08:19)
[2023-12-27] MEDS: FERROUS GLUCONATE 324 MG TAB PO SCH (08:19)
[2023-12-27] MEDS: SPIRONOLACTONE 25 MG TAB PO SCH (08:19)
[2023-12-27] MEDS: DOCUSATE SODIUM 100MG CAPSULE PO SCH (08:19)
[2023-12-27] MEDS ORDERED: predniSONE 20 MG TAB PO SCH (09:00)
[2023-12-27 09:29] LABS: HEMATOCRIT 30.6 % (42.0-52.0); HEMOGLOBIN 9.6 g/dl (13.5-17.5); MEAN CORPUSCULAR HEMOGLOBIN 28.3 pg (27.0-33.0); MEAN CORPUSCULAR HGB CONC 31.4 g/dl (32.0-36.5); MEAN CORPUSCULAR VOLUME 90.3 fl (80.0-96.0); PLATELET COUNT, AUTOMATED 273 10^3/uL (150-450); RED BLOOD COUNT 3.39 10^6/uL (4.30-6.10); WHITE BLOOD COUNT 12.6 10^3/uL (4.0-10.0)
[2023-12-27 10:02] LABS: SOURCE, BODY FLUID ALBUMIN PLEURAL
[2023-12-27 10:07] LABS: SOURCE, BODY FLUID GLUCOSE PLEURAL; SOURCE, BODY FLUID TRIG PLEURAL; TRIGLYCERIDE, BODY FLUID 28 MG/DL (NOT ESTABLISHED)
[2023-12-27 10:08] LABS: AMYLASE, BODY FLUID < 20 U/L (NOT ESTABLISHED); SOURCE, BODY FLUID AMYLASE PLEURAL
[2023-12-27 10:09] LABS: CHOLESTEROL, BODY FLUID 29 MG/DL (NOT ESTABLISHED); SOURCE, BODY FLUID CHOL PLEURAL
[2023-12-27 10:11] LABS: ALBUMIN 1.2 G/DL (3.2-5.2); ALKALINE PHOSPHATASE 82 U/L (46-116); ALT/SGPT 38 U/L (7.0-40); AST/SGOT 24 U/L (<34); BILIRUBIN,TOTAL 0.2 MG/DL (0.3-1.2); BLOOD UREA NITROGEN 33 MG/DL (9-23); CALCIUM LEVEL 7.4 MG/DL (8.3-10.6); CARBON DIOXIDE LEVEL 27 MMOL/L (20-31); CHLORIDE LEVEL 100 MMOL/L (98-107); CREATININE FOR GFR 1.19 MG/DL (0.70-1.30); GLOMERULAR FILTRATION RATE > 60.0 (>42); GLUCOSE, FASTING 204 MG/DL (74-106); MAGNESIUM LEVEL 2.2 MG/DL (1.8-2.4); POTASSIUM SERUM 3.7 MMOL/L (3.5-5.1); SODIUM LEVEL 133 MMOL/L (136-145); TOTAL PROTEIN 5.7 G/DL (5.7-8.2)
[2023-12-27 10:12] LABS: APPEARANCE, BODY FLUID TURBID (CLEAR); PLEURAL FL COLOR YELLOW (COLORLESS); SOURCE, BODY FLUID PLEURAL
[2023-12-27 10:18] LABS: LDH, BODY FLUID > 750 U/L (NOT ESTABLISHED); SOURCE, BODY FLUID LDH PLEURAL
[2023-12-27] MEDS: LEVALBUTEROL 1.25MG 0.5ML CONCENTRATE NEB INH PRN (10:42)
[2023-12-27] MEDS: fentaNYL 100 MCG/2 ML INJECTION IV PRN (10:59)
[2023-12-27] MEDS: metroNIDAZOLE 500 MG in IV 1 EA IV SCH (10:59)
[2023-12-27 11:07] LABS: ABG BASE EXCESS -0.1 (-2.0-2.0); ABG HCO3 24.8 MMOL/L (22.0-26.0); ABG O2 SATURATION 89.4 % (95.0-99.0); ABG PARTIAL PRESSURE CO2 41.7 mmHg (35.0-45.0); ABG PARTIAL PRESSURE O2 60.5 mmHg (75.0-100.0); ABG STANDARD HCO3 24.3 MMOL/L. (22.0-26.0); ABG TOTAL CO2 26.1 MMOL/L (23.0-31.0); ABG pH (ARTERIAL) 7.393 UNITS (7.350-7.450)
[2023-12-27 12:31] LABS: SOURCE, BODY FLUID TOT PROTEIN PLEURAL
[2023-12-27] MEDS: NS 1,000 ML IV ONE (13:09)
[2023-12-27] MEDS: ROSUVASTATIN 10 MG TAB (CRESTOR) PO SCH (20:01)
[2023-12-27] MEDS: VANCOMYCIN HCL 750 MG, VIAL MATE ADAPTER 1 EACH in D5W 250 ML IV SCH (21:05)
[2023-12-27] MEDS: VANCOMYCIN HCL 500 MG in D5W MINI-BAG PLUS 100 ML IV SCH (22:16)
[2023-12-28] VITALS (39 sets, daily range): BP systolic 73–130; BP diastolic 40–64; TEMP 97.2–98.3; O2SAT 89–97
[2023-12-28 01:09] LABS: ABG BASE EXCESS 0.3 (-2.0-2.0); ABG HCO3 25.6 MMOL/L (22.0-26.0); ABG O2 SATURATION 95.8 % (95.0-99.0); ABG PARTIAL PRESSURE CO2 44.2 mmHg (35.0-45.0); ABG PARTIAL PRESSURE O2 80.5 mmHg (75.0-100.0); ABG STANDARD HCO3 24.7 MMOL/L. (22.0-26.0); ABG TOTAL CO2 26.9 MMOL/L (23.0-31.0)
[2023-12-28] MEDS: ADVAIR HFA 115/21MCG INHALER INH SCH (01:15)
[2023-12-28] MEDS: TIOTROPIUM INHALER/CAPSULE (SPIRIVA) INH SCH (07:38)
[2023-12-28 07:55] LABS: HEMATOCRIT 27.3 % (42.0-52.0); HEMOGLOBIN 8.5 g/dl (13.5-17.5); MEAN CORPUSCULAR HEMOGLOBIN 28.3 pg (27.0-33.0); MEAN CORPUSCULAR HGB CONC 31.1 g/dl (32.0-36.5); PLATELET COUNT, AUTOMATED 250 10^3/uL (150-450); WHITE BLOOD COUNT 14.2 10^3/uL (4.0-10.0)
[2023-12-28 08:21] LABS: ANISOCYTOSIS 1+; LYMPHOCYTES 4 % (16-44); MONOCYTES 5 % (0-5); NEUTROPHILS 91 % (28-66); PLATELET CLUMPS SMALL AMT; PLATELET ESTIMATE NORMAL (NORMAL); POIKILOCYTOSIS 1+; POLYCHROMASIA 1+
[2023-12-28 08:22] LABS: ALBUMIN 1.1 G/DL (3.2-5.2); BILIRUBIN,TOTAL 0.2 MG/DL (0.3-1.2); CALCIUM LEVEL 7.8 MG/DL (8.3-10.6); CREATININE FOR GFR 1.24 MG/DL (0.70-1.30); GLOMERULAR FILTRATION RATE 59.9 (>42); MAGNESIUM LEVEL 2.4 MG/DL (1.8-2.4); POTASSIUM SERUM 3.7 MMOL/L (3.5-5.1); TOTAL PROTEIN 5.4 G/DL (5.7-8.2)
[2023-12-28] MEDS: NS ALTEPLASE RECOMBINANT INTRAPLEU ONE (09:57)
[2023-12-28] MEDS: [UNRECOGNIZED DRUG - OTHER] INTRAPLEU ONE (09:57)
[2023-12-28] MEDS: SODIUM CHLORIDE 0.9% 50 ML IV ONE (09:57)
[2023-12-28] MEDS: methylPREDNISolone 40MG 1ML VIAL IV SCH (14:17)
[2023-12-28] MEDS: VANCOMYCIN HCL 750 MG, VIAL MATE ADAPTER 1 EACH in D5W 250 ML IV SCH (15:46)
[2023-12-28] MEDS: VANCOMYCIN HCL 500 MG in D5W MINI-BAG PLUS 100 ML IV SCH (17:23)
[2023-12-28] MEDS: INSULIN LISPRO (NovoLOG) PER UNIT SC SCH (19:43)
[2023-12-28] MEDS: LR 1,000 ML IV ONE ×2 (21:08→22:40)
[2023-12-29] VITALS (30 sets, daily range): BP systolic 80–149; BP diastolic 38–78; TEMP 97–97.8; O2SAT 85–98
[2023-12-29 05:57] LABS: BASO % 0.1 % (0.0-1.0); HEMOGLOBIN 7.9 g/dl (13.5-17.5); LYMPH # 0.3 10^3/uL (1.5-5.0); LYMPH % 1.8 % (24.0-44.0); MEAN CORPUSCULAR HEMOGLOBIN 28.6 pg (27.0-33.0); MEAN CORPUSCULAR HGB CONC 31.6 g/dl (32.0-36.5); MEAN CORPUSCULAR VOLUME 90.6 fl (80.0-96.0); MONO # 0.5 10^3/uL (0.0-0.8); MONO % 3.1 % (2.0-8.0); NEUTROPHILS # 14.5 10^3/uL (1.5-8.5); NEUTROPHILS % 94.4 % (36.0-66.0); PLATELET COUNT, AUTOMATED 225 10^3/uL (150-450); RED BLOOD COUNT 2.76 10^6/uL (4.30-6.10); WHITE BLOOD COUNT 15.4 10^3/uL (4.0-10.0)
[2023-12-29 06:18] LABS: CALCIUM LEVEL 7.2 MG/DL (8.3-10.6); CREATININE FOR GFR 1.25 MG/DL (0.70-1.30); GLOMERULAR FILTRATION RATE 59.3 (>42); POTASSIUM SERUM 3.4 MMOL/L (3.5-5.1)
[2023-12-29] MEDS: INSULIN LISPRO (NovoLOG) PER UNIT SC SCH (09:18)
[2023-12-29] MEDS: ENOXAPARIN 40MG/0.4ML SYRINGE (J1650 PER 10MG) SC SCH (09:19)
[2023-12-29] MEDS: POTASSIUM CHLORIDE 10MEQ SR TABLET PO ONE (09:21)
[2023-12-29] MEDS ORDERED: NS ALTEPLASE RECOMBINANT INTRAPLEU ONE (13:30)
[2023-12-29] MEDS ORDERED: [UNRECOGNIZED DRUG - OTHER] INTRAPLEU ONE (13:30)
[2023-12-29] MEDS: NS 500 ML IV ONE (13:45)
[2023-12-29] MEDS: [UNRECOGNIZED DRUG - OTHER] INTRAPLEU ONE (15:01)
[2023-12-29] MEDS: NS ALTEPLASE RECOMBINANT INTRAPLEU ONE (15:01)
[2023-12-29] MEDS: LR 1,000 ML IV ONE (21:08)
[2023-12-29] MEDS: ACETAMINOPHEN *IV* 1,000 MG in IV 1 EA IV ONE (22:28)
[2023-12-30] VITALS (17 sets, daily range): BP systolic 96–131; BP diastolic 50–99; TEMP 97–98.2; O2SAT 90–99
[2023-12-30 05:59] LABS: BASO % 0.1 % (0.0-1.0); HEMATOCRIT 24.9 % (42.0-52.0); HEMOGLOBIN 7.6 g/dl (13.5-17.5); LYMPH # 0.2 10^3/uL (1.5-5.0); LYMPH % 1.6 % (24.0-44.0); MEAN CORPUSCULAR HEMOGLOBIN 27.9 pg (27.0-33.0); MEAN CORPUSCULAR HGB CONC 30.5 g/dl (32.0-36.5); MEAN CORPUSCULAR VOLUME 91.5 fl (80.0-96.0); MONO # 0.6 10^3/uL (0.0-0.8); MONO % 4.1 % (2.0-8.0); NEUTROPHILS % 93.5 % (36.0-66.0); PLATELET COUNT, AUTOMATED 218 10^3/uL (150-450); RED BLOOD COUNT 2.72 10^6/uL (4.30-6.10)
[2023-12-30] MEDS: ACETAMINOPHEN *IV* 1,000 MG in IV 1 EA IV ONE (06:19)
[2023-12-30 06:34] LABS: BLOOD UREA NITROGEN 31 MG/DL (9-23); CALCIUM LEVEL 6.9 MG/DL (8.3-10.6); CARBON DIOXIDE LEVEL 28 MMOL/L (20-31); CHLORIDE LEVEL 106 MMOL/L (98-107); CREATININE FOR GFR 1.07 MG/DL (0.70-1.30); GLOMERULAR FILTRATION RATE > 60.0 (>42); GLUCOSE, FASTING 225 MG/DL (74-106); POTASSIUM SERUM 3.7 MMOL/L (3.5-5.1); SODIUM LEVEL 137 MMOL/L (136-145)
[2023-12-30] MEDS: PANTOPRAZOLE 40MG TAB (PROTONIX) PO SCH (08:20)
[2023-12-30] MEDS: NS ALTEPLASE RECOMBINANT INTRAPLEU ONE (14:51)
[2023-12-30] MEDS: [UNRECOGNIZED DRUG - OTHER] INTRAPLEU ONE (14:51)
[2023-12-30] MEDS: ACETAMINOPHEN 325MG/10.15ML UDC PO SCH (15:24)
[2023-12-30] MEDS: PIPERACILLIN/TAZOBACTAM SOD 3.375 GM in D5W MINI-BAG PLUS 50 ML IV SCH (17:50)
[2023-12-30] MEDS: METOPROLOL TART 25 MG TABLET PO SCH (21:00)
[2023-12-31] VITALS (12 sets, daily range): BP systolic 93–151; BP diastolic 51–83; TEMP 97.4–98; O2SAT 89–100
[2023-12-31 05:08] LABS: BASO % 0.1 % (0.0-1.0); HEMATOCRIT 25.3 % (42.0-52.0); HEMOGLOBIN 7.8 g/dl (13.5-17.5); LYMPH # 0.5 10^3/uL (1.5-5.0); LYMPH % 2.7 % (24.0-44.0); MEAN CORPUSCULAR HEMOGLOBIN 27.9 pg (27.0-33.0); MEAN CORPUSCULAR HGB CONC 30.8 g/dl (32.0-36.5); MEAN CORPUSCULAR VOLUME 90.4 fl (80.0-96.0); MONO # 1.1 10^3/uL (0.0-0.8); MONO % 6.4 % (2.0-8.0); NEUTROPHILS # 15.2 10^3/uL (1.5-8.5); NEUTROPHILS % 90.1 % (36.0-66.0); PLATELET COUNT, AUTOMATED 202 10^3/uL (150-450); WHITE BLOOD COUNT 16.8 10^3/uL (4.0-10.0)
[2023-12-31 05:24] LABS: BLOOD UREA NITROGEN 25 MG/DL (9-23); CARBON DIOXIDE LEVEL 30 MMOL/L (20-31); CHLORIDE LEVEL 107 MMOL/L (98-107); CREATININE FOR GFR 1.01 MG/DL (0.70-1.30); GLOMERULAR FILTRATION RATE > 60.0 (>42); GLUCOSE, FASTING 119 MG/DL (74-106); POTASSIUM SERUM 3.2 MMOL/L (3.5-5.1); SODIUM LEVEL 138 MMOL/L (136-145)
[2023-12-31] MEDS: POTASSIUM CHLORIDE 10% LIQ 20MEQ/15ML UDC PO ONE (06:29)
[2023-12-31] MEDS ORDERED: POTASSIUM CHLORIDE 10MEQ SR TABLET PO SCH (09:00)
[2023-12-31] MEDS: POTASSIUM CHLORIDE 10MEQ SR TABLET PO ONE ×2 (09:00→13:09)
[2023-12-31] MEDS: predniSONE 20 MG TAB PO SCH (09:02)
[2023-12-31] MEDS: SODIUM CHLORIDE 0.9% 50 ML IPL ONE (11:00)
[2023-12-31] MEDS: [UNRECOGNIZED DRUG - OTHER] INTRAPLEU ONE (11:00)
[2023-12-31] MEDS: NS ALTEPLASE RECOMBINANT INTRAPLEU ONE (11:00)
[2023-12-31] MEDS: LEVALBUTEROL 1.25MG 0.5ML CONCENTRATE NEB INH SCH (14:00)
[2023-12-31] MEDS: ACETAMINOPHEN *IV* 1,000 MG in IV 1 EA IV SCH (17:11)
[2023-12-31] MEDS: HYDROMORPHONE HCL 0.5 MG/ 0.5 ML SYRINGE IV PRN (21:09)
[2024-01-01] VITALS (7 sets, daily range): BP systolic 109–144; BP diastolic 55–77; TEMP 97.5–98.5; O2SAT 92–97
[2024-01-01 05:55] LABS: BASO % 0.1 % (0.0-1.0); EOS % 0.1 % (0.0-3.0); HEMATOCRIT 25.1 % (42.0-52.0); HEMOGLOBIN 7.7 g/dl (13.5-17.5); LYMPH # 0.6 10^3/uL (1.5-5.0); LYMPH % 3.5 % (24.0-44.0); MEAN CORPUSCULAR HEMOGLOBIN 28.4 pg (27.0-33.0); MEAN CORPUSCULAR HGB CONC 30.7 g/dl (32.0-36.5); MEAN CORPUSCULAR VOLUME 92.6 fl (80.0-96.0); MONO % 5.7 % (2.0-8.0); NEUTROPHILS # 15.1 10^3/uL (1.5-8.5); NEUTROPHILS % 89.8 % (36.0-66.0); PLATELET COUNT, AUTOMATED 193 10^3/uL (150-450); RED BLOOD COUNT 2.71 10^6/uL (4.30-6.10); WHITE BLOOD COUNT 16.8 10^3/uL (4.0-10.0)
[2024-01-01 06:30] LABS: BLOOD UREA NITROGEN 24 MG/DL (9-23); CALCIUM LEVEL 7.6 MG/DL (8.3-10.6); CARBON DIOXIDE LEVEL 33 MMOL/L (20-31); CHLORIDE LEVEL 109 MMOL/L (98-107); CREATININE FOR GFR 1.05 MG/DL (0.70-1.30); GLOMERULAR FILTRATION RATE > 60.0 (>42); GLUCOSE, FASTING 105 MG/DL (74-106); POTASSIUM SERUM 4.2 MMOL/L (3.5-5.1); SODIUM LEVEL 142 MMOL/L (136-145)
[2024-01-01] MEDS: MOM 30ML SUSPENSION UDC PO PRN (06:49)
[2024-01-01] MEDS: [UNRECOGNIZED DRUG - OTHER] INTRAPLEU ONE (15:22)
[2024-01-01] MEDS: SODIUM CHLORIDE 0.9% 50 ML IPL ONE (15:23)
[2024-01-01] MEDS: NS ALTEPLASE RECOMBINANT INTRAPLEU ONE (15:23)
[2024-01-01] MEDS ORDERED: MIRALAX *UNIT DOSE* 17GM PACKET PO PRN (17:25)
[2024-01-02] VITALS (58 sets, daily range): BP systolic 62–202; BP diastolic 40–93; TEMP 97.2–98.7; O2SAT 94–100
[2024-01-02 05:50] LABS: BASO % 0.1 % (0.0-1.0); EOS # 0.1 10^3/uL (0.0-0.5); EOS % 0.4 % (0.0-3.0); LYMPH # 0.6 10^3/uL (1.5-5.0); LYMPH % 3.4 % (24.0-44.0); MEAN CORPUSCULAR HEMOGLOBIN 28.2 pg (27.0-33.0); MEAN CORPUSCULAR HGB CONC 30.5 g/dl (32.0-36.5); MEAN CORPUSCULAR VOLUME 92.4 fl (80.0-96.0); MONO % 6.1 % (2.0-8.0); NEUTROPHILS # 14.7 10^3/uL (1.5-8.5); PLATELET COUNT, AUTOMATED 173 10^3/uL (150-450); RED BLOOD COUNT 2.38 10^6/uL (4.30-6.10); WHITE BLOOD COUNT 16.5 10^3/uL (4.0-10.0)
[2024-01-02 06:06] LABS: HEMOGLOBIN 6.7 g/dl (13.5-17.5)
[2024-01-02 06:12] LABS: BLOOD UREA NITROGEN 33 MG/DL (9-23); CARBON DIOXIDE LEVEL 34 MMOL/L (20-31); CHLORIDE LEVEL 107 MMOL/L (98-107); CREATININE FOR GFR 0.94 MG/DL (0.70-1.30); GLOMERULAR FILTRATION RATE > 60.0 (>42); GLUCOSE, FASTING 115 MG/DL (74-106); SODIUM LEVEL 140 MMOL/L (136-145)
[2024-01-02] MEDS: LEVEMIR (INSULIN DETEMIR) 1 UNITS/0.01ML SC SCH (08:27)
[2024-01-02 10:13] LABS: APPEARANCE, URINE CLEAR (CLEAR); BACTERIA, URINE AUTO NEGATIVE (NEGATIVE); BILIRUBIN, URINE AUTO NEGATIVE (NEGATIVE); BLOOD, URINE BLOOD 2+ (NEGATIVE); COLOR, URINE YELLOW (YELLOW); GLUCOSE, URINE (UA) AUTO 1+ mg/dL (NEGATIVE); KETONE, URINE AUTO NEGATIVE (NEGATIVE); LEUKOCYTE ESTERASE, URINE AUTO NEGATIVE (NEGATIVE); NITRITE, URINE AUTO NEGATIVE (NEGATIVE); PROTEIN, URINE AUTO 2+ mg/dL (NEGATIVE); RBC, URINE AUTO 47 /HPF (0-3); SPECIFIC GRAVITY URINE AUTO 1.025 (1.002-1.035); SQUAMOUS EPITHELIAL CELL UR AU 0 /HPF (0-6); UROBILINOGEN, URINE AUTO 0.2 mg/dL (0.0-2.0); WBC, URINE AUTO 6 /HPF (0-3)
[2024-01-02] MEDS: NS ALTEPLASE RECOMBINANT INTRAPLEU ONE (12:00)
[2024-01-02] MEDS: SODIUM CHLORIDE 0.9% 50 ML IPL ONE (12:00)
[2024-01-02] MEDS: [UNRECOGNIZED DRUG - OTHER] INTRAPLEU ONE (12:00)
[2024-01-02 12:28] LABS: HEMATOCRIT 23.1 % (42.0-52.0); HEMOGLOBIN 7.1 g/dl (13.5-17.5); MEAN CORPUSCULAR HEMOGLOBIN 27.8 pg (27.0-33.0); MEAN CORPUSCULAR HGB CONC 30.7 g/dl (32.0-36.5); MEAN CORPUSCULAR VOLUME 90.6 fl (80.0-96.0); PLATELET COUNT, AUTOMATED 167 10^3/uL (150-450); RED BLOOD COUNT 2.55 10^6/uL (4.30-6.10); WHITE BLOOD COUNT 19.1 10^3/uL (4.0-10.0)
[2024-01-02] MEDS: LR 1,000 ML IV ONE ×2 (13:07→14:31)
[2024-01-02] MEDS ORDERED: LR 1,000 ML IV ONE (14:15)
[2024-01-02 14:43] LABS: MEAN CORPUSCULAR HEMOGLOBIN 27.9 pg (27.0-33.0); MEAN CORPUSCULAR VOLUME 90.2 fl (80.0-96.0); PLATELET COUNT, AUTOMATED 144 10^3/uL (150-450); RED BLOOD COUNT 2.04 10^6/uL (4.30-6.10); WHITE BLOOD COUNT 15.4 10^3/uL (4.0-10.0)
[2024-01-02 14:53] LABS: HEMATOCRIT 18.4 % (42.0-52.0)
[2024-01-02 14:55] LABS: HEMOGLOBIN 5.7 g/dl (13.5-17.5)
[2024-01-02] MEDS: NOREPINEPHRINE 4MG IN D5 250ML 4 MG in IV 1 EA IV SCH (15:10)
[2024-01-02] MEDS ORDERED: HYDROCORTISONE 100MG/2ML VIAL As Ordered ONE (15:14)
[2024-01-02] MEDS: HYDROCORTISONE 100MG/2ML VIAL IV ONE (15:29)
[2024-01-02] MEDS ORDERED: diphenhydrAMINE 50MG/ML VIAL As Ordered ONE (15:38)
[2024-01-02] MEDS: diphenhydrAMINE 50MG/ML VIAL IV ONE (15:40)
[2024-01-02] MEDS ORDERED: LIDOCAINE 1% SDV 30ML VIAL As Ordered ONE (17:07)
[2024-01-02] MEDS ORDERED: ISOVUE-300 61% 100ML VIAL As Ordered ONE (17:08)
[2024-01-02] MEDS ORDERED: methylPREDNISolone 125MG 2ML VIAL As Ordered ONE (17:23)
[2024-01-02] MEDS: methylPREDNISolone 40MG 1ML VIAL IV ONE (17:30)
[2024-01-02] MEDS ORDERED: NS 1,000 ML IV SCH (18:40)
[2024-01-02 21:27] LABS: BASO % 0.1 % (0.0-1.0); HEMATOCRIT 28.9 % (42.0-52.0); HEMOGLOBIN 9.5 g/dl (13.5-17.5); LYMPH # 0.3 10^3/uL (1.5-5.0); LYMPH % 1.8 % (24.0-44.0); MEAN CORPUSCULAR HEMOGLOBIN 28.3 pg (27.0-33.0); MEAN CORPUSCULAR HGB CONC 32.9 g/dl (32.0-36.5); MONO # 0.3 10^3/uL (0.0-0.8); MONO % 2.2 % (2.0-8.0); NEUTROPHILS # 14.4 10^3/uL (1.5-8.5); NEUTROPHILS % 94.1 % (36.0-66.0); PLATELET COUNT, AUTOMATED 120 10^3/uL (150-450); RED BLOOD COUNT 3.36 10^6/uL (4.30-6.10); WHITE BLOOD COUNT 15.3 10^3/uL (4.0-10.0)
[2024-01-02] MEDS: HYDROCORTISONE 100MG/2ML VIAL IV SCH (21:57)
[2024-01-02] MEDS: PANTOPRAZOLE 40MG VIAL IV SCH (21:57)
[2024-01-03] VITALS (32 sets, daily range): BP systolic 71–124; BP diastolic 45–63; TEMP 97–97.5; O2SAT 92–98
[2024-01-03] MEDS: NS 1,000 ML IV SCH (01:55)
[2024-01-03] MEDS: LIDOCAINE 5% (LIDODERM) PATCH TD ONE (04:11)
[2024-01-03 04:22] LABS: BASO % 0.1 % (0.0-1.0); HEMATOCRIT 27.1 % (42.0-52.0); LYMPH # 0.6 10^3/uL (1.5-5.0); LYMPH % 4.3 % (24.0-44.0); MEAN CORPUSCULAR HEMOGLOBIN 28.4 pg (27.0-33.0); MEAN CORPUSCULAR HGB CONC 33.2 g/dl (32.0-36.5); MEAN CORPUSCULAR VOLUME 85.5 fl (80.0-96.0); MONO # 0.4 10^3/uL (0.0-0.8); MONO % 3.1 % (2.0-8.0); NEUTROPHILS # 12.1 10^3/uL (1.5-8.5); NEUTROPHILS % 90.2 % (36.0-66.0); PLATELET COUNT, AUTOMATED 138 10^3/uL (150-450); RED BLOOD COUNT 3.17 10^6/uL (4.30-6.10); WHITE BLOOD COUNT 13.4 10^3/uL (4.0-10.0)
[2024-01-03 04:50] LABS: BLOOD UREA NITROGEN 60 MG/DL (9-23); CALCIUM LEVEL 6.3 MG/DL (8.3-10.6); CARBON DIOXIDE LEVEL 27 MMOL/L (20-31); CHLORIDE LEVEL 109 MMOL/L (98-107); GLOMERULAR FILTRATION RATE > 60.0 (>42); GLUCOSE, FASTING 210 MG/DL (74-106); POTASSIUM SERUM 4.7 MMOL/L (3.5-5.1); SODIUM LEVEL 139 MMOL/L (136-145)
[2024-01-03 05:15] LABS: MAGNESIUM LEVEL 1.9 MG/DL (1.8-2.4)
[2024-01-03] MEDS: VASOPRESSIN INJ 20 UNITS in NS 499 ML IV SCH (05:21)
[2024-01-03 05:59] LABS: INR 1.62; PROTHROMBIN TIME 18.7 SECONDS (12.5-14.5)
[2024-01-03] MEDS: HYDROMORPHONE HCL 0.5 MG/ 0.5 ML SYRINGE IV PRN (07:01)
== END 2024-01-03 07:41 | disposition short-term general hospital (02) | DRG 853 ==
LOC: M ED 00:02 → M ED INP 04:17 → M ICU 05:43
PROVIDERS: ADMIT Family Medicine; ATTEND Internal Medicine Pulmonary Disease
PROC: 0W9B30Z Drainage of Left Pleural Cavity with Drainage Device, Percutaneous Approach (ICD-10-PCS; 2023-12-27)
PROC: B246ZZZ Ultrasonography of Right and Left Heart (ICD-10-PCS; 2023-12-27)
PROC: 30233N1 Transfusion of Nonautologous Red Blood Cells into Peripheral Vein, Percutaneous Approach (ICD-10-PCS; 2024-01-02)
PROC: 06HM33Z Insertion of Infusion Device into Right Femoral Vein, Percutaneous Approach (ICD-10-PCS; 2024-01-02)
PROC: 04L23DZ Occlusion of Gastric Artery with Intraluminal Device, Percutaneous Approach (ICD-10-PCS; principal; 2024-01-02 17:30)
DX: A41.9 Sepsis, unspecified organism (principal); J15.211 Pneumonia due to Methicillin susceptible Staphylococcus aureus; J86.9 Pyothorax without fistula; J96.01 Acute respiratory failure with hypoxia; R57.1 Hypovolemic shock; J44.0 Chronic obstructive pulmonary disease with (acute) lower respiratory infection; J84.9 Interstitial pulmonary disease, unspecified; E87.1 Hypo-osmolality and hyponatremia; K92.2 Gastrointestinal hemorrhage, unspecified; I48.0 Paroxysmal atrial fibrillation; I12.9 Hypertensive chronic kidney disease with stage 1 through stage 4 chronic kidney disease, or unspecified chronic kidney disease; D50.9 Iron deficiency anemia, unspecified; M16.12 Unilateral primary osteoarthritis, left hip; N18.9 Chronic kidney disease, unspecified; K21.9 Gastro-esophageal reflux disease without esophagitis; E78.5 Hyperlipidemia, unspecified; I27.20 Pulmonary hypertension, unspecified; N40.1 Benign prostatic hyperplasia with lower urinary tract symptoms; R73.03 Prediabetes; F41.9 Anxiety disorder, unspecified; I25.2 Old myocardial infarction; I25.10 Atherosclerotic heart disease of native coronary artery without angina pectoris; Z79.01 Long term (current) use of anticoagulants; Z79.52 Long term (current) use of systemic steroids; Z79.899 Other long term (current) drug therapy; Z88.8 Allergy status to other drugs, medicaments and biological substances; Z91.041 Radiographic dye allergy status; Z85.46 Personal history of malignant neoplasm of prostate; Z86.718 Personal history of other venous thrombosis and embolism; Z85.828 Personal history of other malignant neoplasm of skin